=== PATIENT | female | born 1975 | race Caucasian/White ===

== ENCOUNTER 2020-04-08 06:47 | Outpatient (REF) | payer OTHER, SELFPAY ==
[2020-04-08 11:59] LABS: Alanine Aminotransferase 27 U/L (0-31); Aspartate Amino Transferase 19 U/L (5-31); Cholesterol 176 mg/dL; HDL Cholesterol 43 mg/dL; LDL Cholesterol Calculated 112 mg/dl; Triglycerides 106 mg/dL
[2020-04-08 12:06] LABS: Free T4 (Free Thyroxine) 1.24 ng/dL (0.71-1.85); Thyroid Stimulating Hormone 0.19 mIU/mL (0.32-4.0)
== END 2020-04-08 06:48 | disposition home or self-care (01) ==
LOC: HO.HMGCLDS 06:47
PROVIDERS: PCP Internal Medicine; Visit Provider Internal Medicine
DX: K21.9 Gastro-esophageal reflux disease without esophagitis (principal); E03.9 Hypothyroidism, unspecified; E78.5 Hyperlipidemia, unspecified
CPT/HCPCS: 80061; 84439; 84443; 84450; 84460

== ENCOUNTER 2020-10-06 12:53 | Outpatient (REF) | payer OTHER, SELFPAY ==
--- NOTE | ~2020-10-06 | MM_ITS ---
EXAMINATION: MM DIAGNOSTIC DIGITAL BREAST TOMOSYNTHESIS, LEFT CLINICAL INFORMATION: Short interval six-month follow-up probable benign focal nodular asymmetry mid upper outer left breast, possibly sequela from prior reduction mammoplasty. The lifetime risk of breast cancer based on the Tyrer-Cuzick Model is 11%. COMPARISON: Mammography: 03/19/2020, 03/11/2020 (BI-RADS 0), 08/19/2018, 08/13/2017 TECHNIQUE: Digital breast tomosynthesis is performed in both the craniocaudal and mediolateral oblique views along with computer-aided detection (CAD). Synthesized 2D images are generated from the tomosynthesis. FINDINGS: There are scattered areas of fibroglandular density (ACR BI-RADS breast composition Category b). There is minor scarring and benign coarse calcification anterior left breast corresponding to the prior reduction mammoplasty. The focal nodular asymmetry mid upper outer quadrant is stable from prior diagnostic exam and likely without significant change since 2018. Left breast will be reassessed again at time of annual bilateral mammography, due in 6 months. Results are provided to the patient at time of visit by the technologist. MM/MM tomosynthesis diagnostic LT IMPRESSION: No significant changes from prior studies. ASSESSMENT: BI-RADS 3: Probably Benign RECOMMENDATION: Diagnostic mammography at time of annual bilateral exam, due in 6 months. This patient's information was entered into a reminder system with a target due date for their next mammogram.
== END 2020-10-06 12:54 | disposition home or self-care (01) ==
LOC: HO.MAMMO 12:53
PROVIDERS: Visit Provider Internal Medicine
DX: N63.21 Unspecified lump in the left breast, upper outer quadrant (principal)
CPT/HCPCS: 77061; 77065

== ENCOUNTER 2020-10-13 06:42 | Outpatient (REF) | payer OTHER, SELFPAY ==
[2020-10-13 12:11] LABS: Free T4 (Free Thyroxine) 1.06 ng/dL (0.71-1.85); Thyroid Stimulating Hormone 0.45 uIU/mL (0.32-4.0)
[2020-10-13 12:13] LABS: Alanine Aminotransferase 30 U/L (0-31); Aspartate Amino Transferase 21 U/L (5-31); Cholesterol 187 mg/dL; HDL Cholesterol 41 mg/dL; LDL Cholesterol Calculated 120 mg/dl; Triglycerides 131 mg/dL
== END 2020-10-13 06:43 | disposition home or self-care (01) ==
LOC: HO.HMGCLDS 06:42
PROVIDERS: PCP Internal Medicine; Visit Provider Internal Medicine
DX: E78.5 Hyperlipidemia, unspecified (principal); E03.9 Hypothyroidism, unspecified; N92.6 Irregular menstruation, unspecified
CPT/HCPCS: 36415; 80061; 84439; 84443; 84450; 84460

== ENCOUNTER 2021-04-07 14:18 | Outpatient (REF) | payer OTHER, SELFPAY ==
--- NOTE | ~2021-04-07 | MM_ITS ---
EXAMINATION: MM DIAGNOSTIC DIGITAL BREAST TOMOSYNTHESIS, BILATERAL CLINICAL INFORMATION: Probable benign focal nodular asymmetry mid upper outer left breast, possibly sequela from prior reduction mammoplasty. Due for yearly. The lifetime risk of breast cancer based on the Tyrer-Cuzick Model is 16%. COMPARISON: Mammography: 10/06/2020, 03/19/2020, 03/11/2020 (BI-RADS 0), 08/19/2018, 08/13/2017 TECHNIQUE: Digital breast tomosynthesis is performed in both the craniocaudal and mediolateral oblique views along with computer-aided detection (CAD). Synthesized 2D images are generated from the tomosynthesis. FINDINGS: There are scattered areas of fibroglandular density (ACR BI-RADS breast composition Category b). Parenchymal pattern is similar to prior exams. There is minor scarring consistent with the prior bilateral reduction mammoplasty. There is no interval mass or architectural abnormality or developing density. No abnormal calcifications. Right breast again has dermal lesion overlying the posterior inferior medial breast. The focal nodular asymmetry mid upper outer left breast has fatty tissue composition centrally on the MLO view suggesting probable fat necrosis. No change from recent diagnostic studies. There are rounded fatty changes in this area of larger size since 2019 and 2018. Preliminary results are provided to the patient at time of visit by the technologist. MM/MM tomosynthesis diagnostic BI IMPRESSION: 1. Left: Focal nodular asymmetry upper outer left breast possibly fat necrosis, stable. 2. Right: No mammographic evidence of malignancy. ASSESSMENT: BI-RADS 3: Probably Benign RECOMMENDATION: Diagnostic left mammography in 6 months. This patient's information was entered into a reminder system with a target due date for their next mammogram.
== END 2021-04-07 14:19 | disposition home or self-care (01) ==
LOC: HO.MAMMO 14:18
PROVIDERS: Visit Provider Internal Medicine
DX: N64.89 Other specified disorders of breast (principal)
CPT/HCPCS: 77062; 77066

== ENCOUNTER 2021-04-22 06:33 | Outpatient (REF) | payer OTHER, SELFPAY ==
[2021-04-22 11:25] LABS: MANUAL DIFF FLAG NO
[2021-04-22 11:36] LABS: Basophils Absolute Auto 0.1 X10*3/uL (0.0-0.2); Basophils Percent Auto 1.3 % (0-2); Eosinophils Absolute Auto 0.1 X10*3/uL (0.0-0.4); Eosinophils Percent Auto 0.7 % (0-4); Hematocrit 38.9 % (37-47); Hemoglobin 12.6 g/dl (12.0-16.0); Imm Gran Abs Auto 0.01 X10*3/uL (0.00-0.03); Imm Gran Pct Auto 0.1 % (0.0-0.4); Lymphocytes Absolute Auto 2.6 X10*3/uL (1.2-4.9); Lymphocytes Percent Auto 36.1 % (20-40); Mean Corpuscular HGB Conc 32.4 g/dl (31.0-35.0); Mean Corpuscular Hemoglobin 31.6 pg (27.0-33.0); Mean Corpuscular Volume 97.5 fL (80-98); Mean Platelet Volume 10.3 fL (9.4-12.3); Monocytes Absolute Auto 0.7 X10*3/uL (0.1-1.2); Neutrophils Absolute Auto 3.7 X10*3/uL (2.0-8.3); Neutrophils Percent Auto 51.8 % (45-73); Platelet Count 346 X10*3/uL (160-400); Red Blood Count 3.99 X10*6/uL (4.20-5.50); Red Cell Distribution Width 14.1 % (11.0-16.0); White Blood Count 7.2 X10*3/uL (4.8-10.8)
[2021-04-22 11:43] LABS: Alanine Aminotransferase 21 U/L (0-31); Anion Gap 12 (12-20); Aspartate Amino Transferase 17 U/L (5-31); Blood Urea Nitrogen 16 mg/dL (9-16); Calcium 9.1 mg/dL (8.4-10.2); Carbon Dioxide 26 mmol/L (22-29); Chloride 108 mmol/L (96-108); Cholesterol 189 mg/dL; Estimated Glomerular Filt Rate 58; Glucose Fasting 99 mg/dL (60-99); HDL Cholesterol 39 mg/dL; LDL Cholesterol Calculated 128 mg/dl; Potassium 4.5 mmol/L (3.3-5.1); Sodium 141 mmol/L (135-145); Triglycerides 113 mg/dL
[2021-04-22 12:06] LABS: Free T4 (Free Thyroxine) 1.08 ng/dL (0.71-1.85); Thyroid Stimulating Hormone 0.97 uIU/mL (0.32-4.0)
== END 2021-04-22 06:34 | disposition home or self-care (01) ==
LOC: HO.HMGCLDS 06:33
PROVIDERS: PCP Internal Medicine; Visit Provider Internal Medicine
DX: E03.9 Hypothyroidism, unspecified (principal); E78.5 Hyperlipidemia, unspecified; N92.6 Irregular menstruation, unspecified; I10 Essential (primary) hypertension
CPT/HCPCS: 36415; 80048; 80061; 84439; 84443; 84450; 84460; 85025

== ENCOUNTER 2021-10-03 12:46 | Outpatient (REF) | payer OTHER, SELFPAY ==
--- NOTE | ~2021-10-03 | MM_ITS ---
EXAMINATION: MM DIAGNOSTIC DIGITAL BREAST TOMOSYNTHESIS, LEFT CLINICAL INFORMATION: Probable benign focal nodular asymmetry mid upper outer left breast, suspected sequela from reduction mammoplasty. TC score 11%. COMPARISON: Mammography: 04/07/2021, 10/06/2020, 03/19/2020, 03/11/2020 (BI-RADS 0). TECHNIQUE: Digital breast tomosynthesis is performed in both the craniocaudal and mediolateral oblique views along with computer-aided detection (CAD). Synthesized 2D images are generated from the tomosynthesis. FINDINGS: There are scattered areas of fibroglandular density (ACR BI-RADS breast composition Category b). There is scattered scarring consistent with the reduction mammoplasty. Focal nodular asymmetric density mid upper outer left breast is similar in size. There is internal low attenuation on MLO tomography. Finding will be reassessed again at time of annual bilateral mammography, due in 6 months. Remainder of left breast is similar to prior exams. There are some benign coarse and dystrophic calcifications anterior breasts both before. Results are provided to the patient at time of visit by the technologist. MM/MM tomosynthesis diagnostic LT IMPRESSION: No significant change from prior studies. ASSESSMENT: BI-RADS 3: Probably Benign RECOMMENDATION: Diagnostic mammography at time of annual exam, due in 6 months. This patient's information was entered into a reminder system with a target due date for their next mammogram.
== END 2021-10-03 12:47 | disposition home or self-care (01) ==
LOC: HO.MAMMO 12:46
PROVIDERS: PCP Internal Medicine; Visit Provider Internal Medicine
DX: R92.8 Other abnormal and inconclusive findings on diagnostic imaging of breast (principal)
CPT/HCPCS: 77061; 77065

== ENCOUNTER 2021-10-24 06:29 | Outpatient (REF) | payer OTHER, SELFPAY ==
[2021-10-24 12:36] LABS: Alanine Aminotransferase 33 U/L (0-31); Anion Gap 11 (12-20); Aspartate Amino Transferase 25 U/L (5-31); Blood Urea Nitrogen 11 mg/dL (9-16); Calcium 9.5 mg/dL (8.4-10.2); Carbon Dioxide 28 mmol/L (22-29); Chloride 105 mmol/L (96-108); Cholesterol 204 mg/dL; Estimated Glomerular Filt Rate > 60; Free T4 (Free Thyroxine) 1.11 ng/dL (0.71-1.85); Glucose Fasting 98 mg/dL (60-99); HDL Cholesterol 43 mg/dL; LDL Cholesterol Calculated 129 mg/dl; Potassium 4.3 mmol/L (3.3-5.1); Sodium 140 mmol/L (135-145); Thyroid Stimulating Hormone 1.04 uIU/mL (0.32-4.0); Triglycerides 164 mg/dL; Vitamin D 25-OH Total 47.9 ng/mL (>30)
== END 2021-10-24 06:30 | disposition home or self-care (01) ==
LOC: HO.HMGCLDS 06:29
PROVIDERS: Visit Provider Internal Medicine
DX: I10 Essential (primary) hypertension (principal); E03.9 Hypothyroidism, unspecified; E78.5 Hyperlipidemia, unspecified
CPT/HCPCS: 36415; 80048; 80061; 82306; 84439; 84443; 84450; 84460

== ENCOUNTER 2021-11-10 10:21 | Outpatient (REF) | payer OTHER, SELFPAY ==
--- NOTE | ~2021-11-10 | MM_ITS ---
EXAMINATION: BONE DENSITOMETRY CLINICAL INDICATION: Premature ovarian failure. COMPARISON: This is the patient's baseline examination. TECHNIQUE: Using a [employer] DXA System (software version: 13.1) manufactured by [employer], dual-energy x-ray absorptiometry was performed of the lumbar spine and left hip. The images are of good technical quality. Based on ISCD (International Society for Clinical Densitometry) standards of reporting, Z-scores instead of T-scores are reported in this premenopausal woman. Summary results are attached. FINDINGS: AP SPINE L1-L4: BMD 1.223 g/cm2, T-score 0.4, Z-score 0.4, Z-score within expected range for age. LEFT FEMUR, NECK: BMD 0.777 g/cm2, T-score -1.9, Z-score -1.3, Z-score within expected range for age. LEFT FEMUR, TOTAL: BMD 0.845 g/cm2, T-score -1.3, Z-score -1.0, Z-score within expected range for age. IDENTIFIED RISK FACTORS: None listed. HISTORY OF FRACTURE: None listed. MEDICATIONS: Calcium supplements or multivitamin, vitamin D, ERT/SERMS. MM/XR DEXA axial skeleton IMPRESSION: 1. DIAGNOSIS: Based on the lowest Z-score value of -1.3 in the femoral neck, the patient's bone density is within the expected range for age. 2. 10-YEAR FRACTURE RISK PREDICTION, FRAX: Major osteoporotic fracture (clinical spine, forearm, hip or shoulder) 3.7%. Hip fracture 0.5%. 3. Treatment Recommendations: NOF guidelines recommend consideration for treatment in postmenopausal women and men age 50 and older presenting with the following: -A hip or vertebral (clinical or morphometric) fracture. -T-score less than or equal to -2.5 at the femoral neck or spine after appropriate evaluation to exclude secondary causes. -Low bone mass at the hip or spine and a 10-year fracture probability by FRAX of greater than or equal to 3% for hip fracture or greater than or equal to 20% for major osteoporotic fracture based on the [place] adapted WHO algorithm. 4. Other Recommendations: All treatment decisions require clinical judgment and consideration of individual patient factors, including patient preferences, comorbidities, previous drug use, risk factors not captured in the FRAX model (e.g. frailty, falls, vitamin D deficiency, increased bone turnover, interval significant decline in bone density) and possible under or overestimation of fracture risk by FRAX. FUTURE SCAN RECOMMENDATION: People with diagnosed cases of osteoporosis or at high risk for fracture should have regular bone mineral density tests. For patients eligible for Medicare, routine testing is allowed once every 2 years. The testing frequency can be increased to one year for patients who have rapidly progressing disease, those who are receiving or discontinuing medical therapy to restore bone mass, or have additional risk factors.
== END 2021-11-10 10:22 | disposition home or self-care (01) ==
LOC: HO.MAMMO 10:21
PROVIDERS: PCP Internal Medicine; Visit Provider Nurse Practitioner Adult Health
DX: Z13.820 Encounter for screening for osteoporosis (principal); E28.39 Other primary ovarian failure
CPT/HCPCS: 77080

== ENCOUNTER 2022-03-29 14:01 | Emergency (ER) | payer OTHER, SELFPAY ==
--- NOTE | ~2022-03-29 | CT_ITS ---
EXAMINATION: CT head/brain wo IV con CLINICAL INFORMATION: Reason for Exam Accelerated hypertension memory loss COMPARISON: None. TECHNIQUE: Contiguous axial imaging was performed from the skull base to vertex without intravenous contrast. Sagittal and coronal reformatted images were obtained. This CT examination was performed using dose optimization techniques as appropriate, variously including the following: * Automated exposure control * Adjustment of mA and/or kV according to patient size (this includes techniques or standardized protocols for targeted exams where dose is matched to indication/reason for exam; i.e. extremities or head) Use of iterative reconstruction technique DLP: 647 mGy-cm FINDINGS: Postsurgical changes from suboccipital craniectomy and C1 posterior arch resection with encephalomalacia in the cerebellar vermis and medial cerebellar hemispheres. There is heterogeneous hyperdense material along the superior aspect of the fourth ventricle. No acute osseous or soft tissue abnormality. Right mastoid opacification. Visualized paranasal sinuses are clear. There is no definite evidence of acute intracranial hemorrhage or territorial infarction. No abnormal mass effect or midline shift is seen. Parra to white matter differentiation is well preserved. No extra-axial fluid collections are identified. Right frontal approach ventriculoperitoneal shunt catheter terminates in the region of the right frontal horn. Hypodensity along the catheter tract compatible with chronic gliosis. The lateral and third ventricles are slitlike. Mild generalized cerebral volume loss. Mild patchy supratentorial white matter hypodensity likely reflect sequela of chronic microvascular ischemia. CT/CT head/brain wo IV con IMPRESSION: 1. Postsurgical changes from suboccipital craniectomy with medial cerebellar encephalomalacia. There is some heterogeneous hyperdense material along the superior aspect of the fourth ventricle which appears atypical for hemorrhage and is suspected to be chronic/postsurgical in nature. Correlate with surgical history. This could be further evaluated with contrast-enhanced MRI if clinically indicated. 2. Right frontal approach ventriculoperitoneal shunt catheter is in place. The lateral and third ventricles appear slitlike. Correlate for overshunting. No extra-axial fluid collections. 3. Right mastoid opacification Impression #1 and [address] Morales on 03/30/2022 at 1:53 AM
[2022-03-29 14:25] VITALS: BP 199/102; PULSE 100; RESP 16; TEMP 37; O2SAT 97; BMI 29.2
--- NOTE | 2022-03-29 14:29 | ECG_ITS ---
Test Reason : hypertension Blood Pressure : / mmHG Vent. Rate : 100 BPM Atrial Rate : 100 BPM P-R Int : 136 ms QRS Dur : 066 ms QT Int : 350 ms P-R-T Axes : 044 035 022 degrees QTc Int : 451 ms Normal sinus rhythm Normal ECG No previous ECGs available Referred By: Generic ED Physician Electronically Signed By:MARKO PHAM
[2022-03-29 14:49] LABS: MANUAL DIFF FLAG NO
[2022-03-29 14:58] LABS: Basophils Absolute Auto 0.1 X10*3/uL (0.0-0.2); Basophils Percent Auto 1.1 % (0-2); Eosinophils Absolute Auto 0.1 X10*3/uL (0.0-0.4); Eosinophils Percent Auto 1.1 % (0-4); Hematocrit 40.8 % (37.0-47.0); Hemoglobin 13.1 g/dl (12.0-16.0); Imm Gran Abs Auto 0.01 X10*3/uL (0.00-0.03); Imm Gran Pct Auto 0.1 % (0.0-0.4); Lymphocytes Absolute Auto 1.7 X10*3/uL (1.2-4.9); Lymphocytes Percent Auto 23.5 % (20-40); Mean Corpuscular HGB Conc 32.1 g/dl (31.0-35.0); Mean Corpuscular Hemoglobin 30.9 pg (27.0-33.0); Mean Corpuscular Volume 96.2 fL (80.0-98.0); Mean Platelet Volume 9.2 fL (9.4-12.3); Monocytes Absolute Auto 0.7 X10*3/uL (0.1-1.2); Monocytes Percent Auto 9.9 % (2-11); Neutrophils Absolute Auto 4.6 x10*3/uL (2.0-8.3); Neutrophils Percent Auto 64.3 % (45-73); Platelet Count 329 X10*3/uL (160-400); Red Blood Count 4.24 X10*6/uL (4.20-5.50); Red Cell Distribution Width 13.8 % (11.0-16.0); White Blood Count 7.2 X10*3/uL (4.8-10.8)
[2022-03-29 15:05] LABS: COVID-19 Test Negative (Negative); IDNOW Serial# 9DB6401D
[2022-03-29 15:08] LABS: Anion Gap 15 (12-20); Blood Urea Nitrogen 16 mg/dL (9-16); Calcium 9.6 mg/dL (8.4-10.2); Carbon Dioxide 27 mmol/L (22-29); Chloride 103 mmol/L (96-108); Creatinine Clr Calc Pharmacy 52.7; Estimated Glomerular Filt Rate 56; Glucose Random 127 mg/dL (60-115); Potassium 4.5 mmol/L (3.3-5.1); Sodium 140 mmol/L (135-145)
[2022-03-30 00:02] VITALS: BP 185/104; PULSE 85; RESP 18; TEMP 37.1; O2SAT 98
--- NOTE | 2022-03-30 00:50 | ED.GENADULT ---
HPI - General Adult General Chief complaint: General Medical Stated complaint: numbness in L arm, stroke like symptoms Time Seen by Provider: 03/30/22 00:50 Source: patient Mode of arrival: ambulatory Limitations: no limitations History of Present Illness HPI narrative: Patient legally blind and hard of hearing with history of brain tumor status post shunt placement notices bilateral hand numbness since morning had difficulty in counting no other weakness also noticed slight headache noticed to be have high blood pressure on arrival 199/102 patient never had high blood pressure in the past no chest pain or palpitation Related Data Home Medications Medication Instructions Recorded Confirmed levonorgestrel-ethinyl estradiol 1 tab PO DAILY 04/15/20 04/28/21 0.1 mg-20 mcg tablet Lactobacillus rhamnosus GG 20 cell PO 10/31/21 billion cell capsule (Probiotic Digestive Care) calcium carbonate 600 mg calcium 600 mg PO DAILY 10/31/21 (1,500 mg) tablet (Calcium) cholecalciferol (vitamin D3) 50 50 mcg PO DAILY 10/31/21 mcg (2,000 unit) capsule omega 6-jyo-jps-fish oil 1,000 mg 1 cap PO DAILY 10/31/21 (120 mg-180 mg) capsule (Fish Oil) Previous Rx's Medication Instructions Recorded omeprazole 20 mg capsule,delayed 20 mg PO DAILY #30 caps 10/24/21 release lovastatin 40 mg tablet 40 mg PO BEDTIME #90 tabs 10/31/21 levothyroxine 75 mcg tablet 75 mcg PO QAM 90 days #90 tabs 01/16/22 amlodipine 5 mg tablet (Norvasc) 5 mg PO DAILY #30 tabs 03/30/22 Allergies Allergy/AdvReac Type Severity Reaction Status Date / Time No Known Allergies Allergy Verified 10/31/21 10:53 Review of Systems Review of Systems: Yes all other systems are reviewed and are negative PMFSH Past Medical History Medical History Acquired hypothyroidism Basal cell carcinoma of right cheek Hyperlipidemia Irregular menses Medulloblastoma Panic attacks Surgical History History of brain tumor Status post breast reduction Family History Family History Father HTN (hypertension) Hyperlipidemia Mother HTN (hypertension) History of thyroid disorder Maternal Grandmother CHF (congestive heart failure) History of thyroid disorder Paternal Grandmother Breast cancer Melanoma Paternal Grandfather Cancer Diabetes mellitus Brother No problems noted. Sister No problems noted. Social History Social History Housing: House Alcohol intake: never Patient Tobacco Use Status: Never used Tobacco e-Cigarette/Vaping Use: Never Used Advance Directives: No Advance Directives Information Provided: Yes Current occupational status: disabled Cognitive needs: No Hearing needs: No Vision needs: Yes (legally blind) Physical Exam ED Vital Signs: Vital Signs - 24 hr 03/29/22 14:25 03/30/22 00:02 03/30/22 01:29 Temperature 98.6 F 98.8 F Pulse Rate 100 85 75 Respiratory Rate 16 18 Blood Pressure 199/102 H 185/104 H 178/96 H Pulse Oximetry 97 98 Oxygen Delivery Method Room Air Room Air BMI result Body Mass Index 29.2 Appearance: Alert. Oriented X3. No acute distress. Slight hard of hearing Eyes: Legally blind ENT: Pharynx normal. Oral Mucosa moist Neck: Normal inspection. Neck supple. CVS: Normal heart rate and rhythm. Pulses normal. Respiratory: No respiratory distress. Equal air entry bilateral, no wheezing/rales/rhonchi Abdomen: Soft and nontender. Bowel sounds are present, no mass palpable, no CVA tenderness Skin: Skin warm and dry. Normal skin color. Normal skin turgor. Extremities: No lower extremity edema. No calf tenderness Neuro: Oriented X 3. No motor deficit. No sensory deficit.No cerebellar signs , cranial nerves II-XII intact Medical Decision Making MDM Narrative Medical decision making narrative: Patient noticed to have accelerated hypertension will get CT scan of the head. Will give amlodipine 10 mg for blood pressure Lab Data Lab results reviewed: Yes I reviewed the patient's lab results. Result diagrams: 03/29/22 14:43 03/29/22 14:43 Labs: Lab Results 03/29/22 03/29/22 03/29/22 Range/Units 14:43 14:43 14:43 WBC 7.2 (4.8-10.8) X10*3/uL RBC 4.24 (4.20-5.50) X10*6/uL Hgb 13.1 (12.0-16.0) g/dl Hct 40.8 (37.0-47.0) % MCV 96.2 (80.0-98.0) fL MCH 30.9 (27.0-33.0) pg MCHC 32.1 (31.0-35.0) g/dl RDW 13.8 (11.0-16.0) % Plt Count 329 (160-400) X10*3/uL MPV 9.2 L (9.4-12.3) fL Immature Gran % (Auto) 0.1 (0.0-0.4) % Neut % (Auto) 64.3 (45-73) % Lymph % (Auto) 23.5 (20-40) % [place] % (Auto) 9.9 (2-11) % Eos % (Auto) 1.1 (0-4) % Baso % (Auto) 1.1 (0-2) % Lymph # (Auto) 1.7 (1.2-4.9) X10*3/uL [place] # (Auto) 0.7 (0.1-1.2) X10*3/uL Eos # (Auto) 0.1 (0.0-0.4) X10*3/uL Baso # (Auto) 0.1 (0.0-0.2) X10*3/uL Abs Immat Gran (auto) 0.01 (0.00-0.03) X10*3/uL Absolute Neuts (auto) 4.6 (2.0-8.3) x10*3/uL Absolute Nucleated RBC 0.000 (0.0-0.012) X10*3/uL Nucleated RBC % (auto) 0.0 (0.0-0.2) /100WBC Sodium 140 (135-145) mmol/L Potassium 4.5 (3.3-5.1) mmol/L Chloride 103 (96-108) mmol/L Carbon Dioxide 27 (22-29) mmol/L Anion Gap 15 (12-20) BUN 16 (9-16) mg/dL Creatinine 1.05 (0.5-1.4) mg/dL Estim Creat Clear Calc 52.7 Estimated GFR 56 Random Glucose 127 H (60-115) mg/dL Calcium 9.6 (8.4-10.2) mg/dL COVID-19 ([facility]) Negative (Negative) COVID-19 Clin Com See Note ECG Data Attestation: I personally reviewed and interpreted this ECG as follows: Interpretation: Normal sinus rhythm heart rate 100 beats per minute normal interval normal axis no acute ischemic changes Discharge Plan Discharge Clinical Impression: Hypertension, Hand paresthesia Patient Disposition: Home, Self-Care Instructions: Paresthesia (ED), Hypertension (ED) Additional Instructions: Likely you have hypertension Start taking blood pressure medication At this time does no finding of stroke Follow with PCP Prescriptions: New amlodipine [Norvasc] 5 mg tablet 5 mg PO DAILY Qty: 30 0RF No Action omeprazole 20 mg capsule,delayed release(DR/EC) 20 mg PO DAILY Qty: 30 4RF levothyroxine 75 mcg tablet 75 mcg PO QAM 90 Days Qty: 90 1RF levonorgestrel-ethinyl estrad 0.1-20 mg-mcg tablet 1 tab PO DAILY omega 9-ycx-aov-fish oil [Fish Oil] 1,000 mg (120 mg-180 mg) capsule 1 cap PO DAILY cholecalciferol (vitamin D3) 50 mcg (2,000 unit) capsule 50 mcg PO DAILY calcium carbonate [Calcium 600] 600 mg calcium (1,500 mg) tablet 600 mg PO DAILY Probiotic Digestive Care 20 billion cell capsule PO lovastatin 40 mg tablet 40 mg PO BEDTIME Qty: 90 3RF
[2022-03-30 01:29] VITALS: BP 178/96; PULSE 75
[2022-03-30] MEDS: amLODIPine Besylate 5 MG TABLET 10 MG PO (01:29)
== END 2022-03-30 02:59 | disposition home or self-care (01) ==
PROVIDERS: Emergency Provider Internal Medicine; PCP Internal Medicine
DX: I10 Essential (primary) hypertension (principal); R20.2 Paresthesia of skin; Z20.822 Contact with and (suspected) exposure to COVID-19; E78.5 Hyperlipidemia, unspecified; Z79.02 Long term (current) use of antithrombotics/antiplatelets
CPT/HCPCS: 70450; 80048; 85025; 87635; 93005; 99284

== ENCOUNTER 2022-04-05 12:49 | Outpatient (REF) | payer OTHER, SELFPAY ==
--- NOTE | ~2022-04-05 | MM_ITS ---
EXAMINATION: MM DIAGNOSTIC DIGITAL BREAST TOMOSYNTHESIS, BILATERAL CLINICAL INFORMATION: Due for yearly. Also follow-up probable benign focal nodular asymmetric density mid upper outer left breast, suspected sequela from remote reduction mammoplasty. The lifetime risk of breast cancer based on the Tyrer-Cuzick Model is 19%. COMPARISON: Mammography: 10/03/2021, 04/07/2021, 10/06/2020, 03/19/2020, 03/11/2020 (BI-RADS 0), 08/19/2018, 08/13/2017 TECHNIQUE: Digital breast tomosynthesis is performed in both the craniocaudal and mediolateral oblique views along with computer-aided detection (CAD). Synthesized 2D images are generated from the tomosynthesis. FINDINGS: There are scattered areas of fibroglandular density (ACR BI-RADS breast composition Category b). Parenchymal pattern is similar to prior studies. There is mild scarring consistent with the prior reduction mammoplasty with scattered benign round and rim calcifications. There are 2 dermal lesions again seen overlying the posterior medial right breast. There is no significant mass or architectural abnormality or developing density. The nodular asymmetry mid upper outer left breast for follow-up is slightly decreased since 2020 and is considered to be benign. There are no significant changes. Results are provided to the patient at time of visit by the technologist. MM/MM tomosynthesis diagnostic BI IMPRESSION: -No mammographic evidence of malignancy. -Nodular asymmetry mid upper outer left breast is slightly decreased since 2020 and consented to be benign. ASSESSMENT: BI-RADS 2: Benign RECOMMENDATION: Routine annual mammography screening. This patient's information was entered into a reminder system with a target due date for their next mammogram.
== END 2022-04-05 12:50 | disposition home or self-care (01) ==
LOC: HO.MAMMO 12:49
PROVIDERS: Visit Provider Internal Medicine
DX: R92.2 Inconclusive mammogram (principal)
CPT/HCPCS: 77062; 77066

== ENCOUNTER 2022-04-24 06:13 | Outpatient (REF) | payer OTHER, SELFPAY ==
[2022-04-24 12:06] LABS: Alanine Aminotransferase 24 U/L (0-31); Aspartate Amino Transferase 21 U/L (5-31); Cholesterol 185 mg/dL; HDL Cholesterol 39 mg/dL; LDL Cholesterol Calculated 119 mg/dl; Triglycerides 137 mg/dL
[2022-04-24 12:11] LABS: Free T4 (Free Thyroxine) 1.11 ng/dL (0.71-1.85); Thyroid Stimulating Hormone 2.12 uIU/mL (0.32-4.0)
== END 2022-04-24 06:14 | disposition home or self-care (01) ==
LOC: HO.HMGCLDS 06:13
PROVIDERS: PCP Internal Medicine; Visit Provider Internal Medicine
DX: E03.9 Hypothyroidism, unspecified (principal); E78.5 Hyperlipidemia, unspecified
CPT/HCPCS: 36415; 80061; 84439; 84443; 84450; 84460

== ENCOUNTER → 2022-05-12 13:04 | Outpatient (REF) | payer OTHER, SELFPAY ==
--- NOTE | 2022-05-12 13:09 | CA_ITS ---
Transthoracic Echocardiogram Patient (Last, First, Middle): Odette Reilly M Gender: Female Date of : 1975 Age: 46 Procedure Date: 05/12/2022 Procedure Type: Transthoracic Echocardiogram Location: OP Height: 147.32 cm Weight: 65.77 kg BSA: 1.59 m2 Heart Rate: 101 bpm BP: 138 / 72 mmHg Millinery Copyist: SB Referring MD: Iliana Roa MD Symptoms: R01.1 - Cardiac murmur, unspecified Study Quality: Adequate ECG Rhythm: Tachycardia Conclusions: - Normal left ventricular size, thickness, systolic function, and wall motion. The visually estimated ejection fraction is between 65-70%. Diastolic function is normal for age. - Normal right ventricular cavity size and systolic function. - The left atrium is normal in size. The right atrium is normal in size. - There is mild aortic valve stenosis. The peak aortic velocity is 2.05 m/s. The aortic valve area is 1.29 cm2. Findings Left Ventricle Normal left ventricular size, thickness, systolic function, and wall motion. The visually estimated ejection fraction is between 65-70%. Diastolic function is normal for age. Right Ventricle Normal right ventricular cavity size and systolic function. Atria The left atrium is normal in size. The right atrium is normal in size. Aortic Valve There is a normal trileaflet aortic valve. There is mild calcification of the aortic valve. There is mild aortic valve stenosis. The peak aortic velocity is 2.05 m/s. The aortic valve area is 1.29 cm2. There is no aortic valve regurgitation. Mitral Valve The mitral valve appears normal. There is no mitral valve regurgitation. There is no mitral valve stenosis. Pulmonic Valve The pulmonic valve is likely normal. Tricuspid Valve Normal tricuspid valve structure and function. There is trace tricuspid valve regurgitation. Normal right atrial pressure. There is no evidence of pulmonary hypertension. Great Vessels All visible segments of the aorta are normal in size. The visualized portions of the pulmonary artery and branches are normal. Venous The inferior vena cava is normal in size and collapses greater than 50% with inspiration. Pericardium/Pleural There is no evidence of pericardial effusion. Prior Study Comparison No prior study available for comparison. Measurements 2D Linear Measurements IVSd: 0.76 0.6-0.9/0.6-1.0 cm LVIDd: 4.08 3.9-5.3/4.2-5.9 cm LVIDd Index: 2.57 2.4-3.2/2.2-3.1 cm/m2 LVIDs: 2.75 2.0-3.6 cm LVPWd: 0.74 0.7-1.1 cm LA Diam: 3.10 2.7-3.8/3.0-4.0 cm LAIDs Index: 1.95 1.5-2.3 cm/m2 LV Mass: 110.54 67-162/88-224 g LV Mass Index: 69.52 43-95/49-115 g/m2 LVOT Diam: 1.80 3.0+(-)1.3 cm 2D Systolic Function EF 4C: 61.40 >55% EF 2C: 66.60 >55% EF BiP: 64.50 >55% Mitral Valve MV Pk E: 1.16 MV PK A: 1.04 MV Decel Time: 100.00 E/A: 1.10 E'Lateral: 9.46 E'Medial: 8.59 E/E' Med: 13.50 E/E' Lat: 12.30 PHT: 29.00 MVA PHT: 7.59 Decel [place]: 11.61 Aortic Valve AoV Pk Jose Armando: 2.05 AoV Mn Jose Armando: 1.37 AoV VTI: 0.40 AoV Pk Grad: 17.00 Aov Mn Grad: 9.00 MICHA Cont.VTI: 1.29 LVOT LVOT Pk Jose Armando: 1.02 LVOT Mn Jose Armando: 0.78 LVOT VTI: 0.20 LVOT Pk Grad: 4.00 LVOT Mn Grad: 3.00 LVOT Diam: 1.80 LVOT Area: 2.54 Diastolic Function MV Pk E: 1.16 MV Pk A: 1.04 E/A: 1.10 E'Medial: 8.59 E/E' Med: 13.50 E' Laterial: 9.46 E/E' Lat: 12.30 Right Ventricle TAPSE (mm): 22.60 TVS' Jose Armando: 14.40 Tricuspid Valve TR Pk Jose Armando: 2.26 TR Pk Grad: 20.00 RA Press: 3.00 RVSP: 23.00 Great Vessels Aorta Sinus of Valsalva: 2.70 2.0-3.[address] [place]: 2.59 1.7-3.4 cm Ao Asc: 3.20 2.1-3.4 cm Pulmonary Valve PV Pk Jose Armando: 0.87 Peak PV Grad: 3.00 Updated in Other Vendor System with Status of Final Darrell Boswell MD electronically signed on 05/14/2022 9:34:47 PM with status of Final
== END ==
LOC: HO.CARD 13:04
PROVIDERS: PCP Internal Medicine; Visit Provider Internal Medicine
DX: R01.1 Cardiac murmur, unspecified (principal)
CPT/HCPCS: 93306

== ENCOUNTER 2022-07-29 07:41 | Outpatient (REF) | payer OTHER, SELFPAY ==
[2022-07-29 11:36] LABS: Alanine Aminotransferase 25 U/L (0-31); Anion Gap 12 (12-20); Aspartate Amino Transferase 20 U/L (5-31); Blood Urea Nitrogen 15 mg/dL (9-16); Calcium 9.5 mg/dL (8.4-10.2); Carbon Dioxide 28 mmol/L (22-29); Chloride 105 mmol/L (96-108); Cholesterol 187 mg/dL; Estimated Glomerular Filt Rate 55; Glucose Fasting 95 mg/dL (60-99); HDL Cholesterol 40 mg/dL; LDL Cholesterol Calculated 123 mg/dl; Potassium 4.9 mmol/L (3.3-5.1); Sodium 140 mmol/L (135-145); Triglycerides 124 mg/dL
[2022-07-29 11:51] LABS: Free T4 (Free Thyroxine) 0.96 ng/dL (0.71-1.85); Thyroid Stimulating Hormone 2.03 uIU/mL (0.32-4.0)
== END 2022-07-29 07:42 | disposition home or self-care (01) ==
LOC: HO.HMGCLDS 07:41
PROVIDERS: PCP Internal Medicine; Visit Provider Internal Medicine
DX: E03.9 Hypothyroidism, unspecified (principal); E78.5 Hyperlipidemia, unspecified; I10 Essential (primary) hypertension
CPT/HCPCS: 36415; 80048; 80061; 84439; 84443; 84450; 84460

== ENCOUNTER 2022-07-31 10:42 | Outpatient (AMB) | payer OTHER, SELFPAY ==
--- NOTE | 2022-07-31 11:18 | MHC.PC.OV ---
Vital Signs 07/31/22 11:20 Height 4 ft 10 in Weight 145 lb BMI 30.3 BP 136/70 Blood Pressure Location Lt brachial Position Sitting Pulse 90 Pulse Source Pulse Oximeter Pulse Oximetry (%) 100 Oxygen Delivery Method Room Air Intake Visit Reasons: 3 Month follow up Intake Note: Pt is here today for her 3 months f/u Allergies No Known Allergies Allergy (Verified 06/05/23 09:53) Medication List - Last Reconciled 07/31/22 by Iliana Roa MD amlodipine (Norvasc) 5 mg PO DAILY calcium carbonate (Calcium) 600 mg PO DAILY cholecalciferol (vitamin D3) 50 mcg PO DAILY Lactobacillus rhamnosus GG (Probiotic Digestive Care) cells PO levonorgestrel-ethinyl estrad 0.1-20 mg-mcg 1 tab PO DAILY levothyroxine 75 mcg PO QAM 90 days lovastatin 40 mg PO BEDTIME omega 5-cuv-sqr-fish oil 1,000 mg (120 mg-180 mg) (Fish Oil) 1 cap PO DAILY omeprazole 20 mg PO DAILY Tobacco use date assessed: 07/31/22 HPI 3 Month follow up HPI Details 47-year-old lady , legally blind, with hypertension history of renal artery stenosis, hypothyroidism and dyslipidemia, here today for follow-up. She has been compliant with taking all her medications and following recommended diet. Patient however has been noticing some difficulty with word finding whenever she is speaking, and has been noticing that she has been having difficulty remembering things, which has been occurring now for the last several months and seems to be getting worse . [facility] Medical History (Updated 12/25/22 @ 13:00 by Iliana Roa MD) Renal artery stenosis Hypersomnolence Snoring GERD (gastroesophageal reflux disease) Word finding problem Memory difficulties Heart murmur, systolic Essential hypertension Positive colorectal cancer screening using Cologuard test Panic attacks Basal cell carcinoma of right cheek Hyperlipidemia Irregular menses Acquired hypothyroidism Medulloblastoma Surgical History Hx of colonoscopy History of brain tumor Status post breast reduction Family History Father HTN (hypertension) Hyperlipidemia Mother HTN (hypertension) History of thyroid disorder Maternal Grandmother CHF (congestive heart failure) History of thyroid disorder Paternal Grandmother Breast cancer Melanoma Paternal Grandfather Cancer Diabetes mellitus Brother No problems noted. Sister No problems noted. Social History Housing: House Alcohol intake: never Patient Tobacco Use Status: Never used Tobacco e-Cigarette/Vaping Use: Never Used Current occupational status: disabled Cognitive needs: No Hearing needs: No Vision needs: Yes (legally blind) Questionnaire PHQ-9 Over the last 2 weeks, how often have you been bothered by any of the following problems? Depression Screening Interpretation: Negative Source: Developed by Drs. Denzel Lemons, Caryn Hardy, Donn Arango and colleagues, with an educational alanna from [employer]. Thrive Questionnaire Date Thrive assessed: 10/31/21 EMILY-7 AMB Questionnaire EMILY-7 Date EMILY - 7 assessed: 10/31/21 Source: Developed by Drs. Denzel Lemons, Caryn Hardy, Donn Arango and colleagues, with an educational alanna from [employer]. Review of Systems Const Denies body aches, Denies fatigue, Denies fever(s) and Denies weakness Eyes Details: blindness Reports no additional complaints ENT Denies dizziness, Denies nasal congestion, Denies nasal discharge, Denies disequilibrium, Denies post nasal drip and Denies sore throat Card Denies chest pain, Denies lightheadedness, Denies palpitations and Denies dyspnea Resp Denies chest congestion, Denies cough, Denies dyspnea and Denies wheezing GI Denies abdominal pain, Denies change in bowel habits and Reports heartburn ( intermittent, takes omeprazole every other day) Denies urinary frequency, Denies dysuria and Denies urinary urgency Musc Denies abnormal gait, Denies back pain, Denies myalgias, Denies arthralgias, Denies joint swelling and Denies stiffness Skin/Breast Denies lesions and Denies rash Neuro Reports as per HPI, Denies abnormal gait, Denies confusion, Denies dizziness, Denies seizure-like activity, Denies disequilibrium and Denies weakness Psych Reports no additional complaints and Denies confusion Endo Denies fatigue, Denies polydipsia, Denies polyuria and Denies palpitations Bimal/Lymph Reports no additional complaints Aller/Immun Denies seasonal rhinorrhea and Denies wheezing Physical exam (Primary Care) Vital Signs: Last Vital Signs Pulse 90 07/31/22 11:20 BP 136/70 07/31/22 11:20 Pulse Ox 100 07/31/22 11:20 Oxygen Delivery Method Room Air 07/31/22 11:20 BMI result Body Mass Index 30.3 Tobacco/Smoking Status: Tobacco use Status Tobacco use date assessed 07/31/22 07/31/22 11:26 Patient Tobacco Use Status Never used Tobacco 07/31/22 11:22 e-Cigarette/Vaping Use Never Used 07/31/22 11:22 Depression Screening Interpretation: Negative Thrive Assessment: Date of Thrive Assessment Date Thrive assessed 10/31/21 07/31/22 11:22 Const Other: Alert oriented x3, no acute distress noted ambulatory with walking stick, 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 on this visit General: No confusion Orientation/consciousness: No confusion HENMT Head: Yes normocephalic General nose exam: Normal external nose present and No nasal discharge present Mouth: Normal oral and palatal mucosa present and moist mucous membranes Neck Other: Supple, no lymphadenopathy, thyroid gland nonpalpable and nontender to palpation Resp Effort & Inspection: normal respiratory effort and able to speak in complete sentences Auscultation: clear to auscultation bilaterally Cardio Other: S1-S2 present regular rate and rhythm , systolic murmur at left sternal border GI Palpation (GI): Soft to palpation, nontender, no guarding and no masses General: Yes no CVA tenderness Back/Spine/Pelvis Back: no CVA tenderness and No back tenderness Neuro General: No confusion Gait exam (Neuro): Normal gait present and Assisted gait required Gait assisted method: walking stick Extrem General: Yes full ROM, Yes no joint enlargement, Yes no pedal edema and Yes no calf tenderness Results Reviewed Results Reviewed: ENTERED: 07/29/[address]: ORDERED: Met Prof Fast, AST, ALT, Lipid Panel, Free T4, TSH Test Result Flag Reference Site Sodium 140 135-145 mmol/L Potassium 4.9 3.3-5.1 mmol/L CL 105 96-108 mmol/L CO2 28 22-29 mmol/L Gap 12 12-20 BUN 15 9-16 mg/dL Creat 1.07 0.5-1.4 mg/dL EGFR 55 NOTE: For -[place] individuals, multiply the result by 1.210. Chronic Kidney Disease: Estimated GFR < 60 mL/min/1.73m2 Severe Kidney Disease: Estimated GFR < 15 mL/min/1.73m2 FBS 95 60-99 mg/dL CA 9.5 8.4-10.2 mg/dL AST (GOT) 20 5-31 U/L ALT (GPT) 25 0-31 U/L Triglyceride 124 mg/dL Desirable Triglyceride: less than 150 mg/dL Borderline High Triglyceride 150-199 mg/dL High Triglyceride: 200-499 mg/dL Very High Triglyceride: greater than or equal to 5OO mg/dL Chol 187 mg/dL Desirable Cholesterol: less than 200 mg/dL Borderline High Cholesterol: 200-239 mg/dL High Cholesterol: greater than 239 mg/dL LDL Calculated 123 mg/dl Desirable LDL: less than 100 mg/dL Near Optimal/Above Optimal LDL: 110-129 mg/dL Borderline High LDL: 130-159 mg/dL High LDL: 160-189 mg/dL Very High LDL: greater than or equal to 190 mg/dL HDL 40 mg/dL Desirable HDL: greater than 40 mg/dL Note: This HDL assay may give artificially low results in patients with liver disease. Free T4 0.96 0.71-1.85 ng/dL TSH 3rd Gen. 2.03 0.32-4.0 uIU/mL Assessment and Plan Assessment & Plan (1) Essential hypertension: Code(s): I10 - Essential (primary) hypertension Plan: Blood pressure not at goal of less than 130/80. Will start on lisinopril at 2.5 mg per tablet to take once a day in a.m.. Reinforced importance of following a low sodium diet, getting regular exercise, and lowering stress levels. (2) Word finding problem: Comment: ? hearing impairment Code(s): R47.89 - Other speech disturbances Plan: Referred to neurology for further evaluation (3) Memory difficulties: Comment: she did well on MMSE - she ahd difficulty during the evaluation due to her hearing difficulty Code(s): R41.3 - Other amnesia Plan: Referral to Neurology ordered (4) Acquired hypothyroidism: Code(s): E03.9 - Hypothyroidism, unspecified Plan: Recent thyroid levels are within normal limits, continued on current dose of levothyroxine 75 mcg daily in a.m. (5) Hyperlipidemia: Code(s): E78.5 - Hyperlipidemia, unspecified Plan: Fasting lipids are within normal limits, continued on lovastatin 40 mg at bedtime Orders: Referrals Neurology Referral R41.3 - Other amnesia, R47.89 - Other speech disturbances Medications: New lisinopril 2.5 mg PO DAILY 30 tabs 0RF I10 - Essential (primary) hypertension Coding Level of Care Code Est Pt Level 4 (94718) Diagnoses Essential hypertension I10 Word finding problem R47.89 Memory difficulties R41.3 Acquired hypothyroidism E03.9 Hyperlipidemia E78.5
[2022-07-31 11:20] VITALS: BP 136/70; PULSE 90; O2SAT 100; BMI 30.3
== END 2022-07-31 11:53 | disposition home or self-care (01) ==
LOC: HO.HMGC 10:42
PROVIDERS: PCP Internal Medicine; Visit Provider Internal Medicine
DX: I10 Essential (primary) hypertension (principal); R47.89 Other speech disturbances; R41.3 Other amnesia; E03.9 Hypothyroidism, unspecified; E78.5 Hyperlipidemia, unspecified
CPT/HCPCS: 99214

== ENCOUNTER → 2022-07-31 12:58 | Outpatient (BNVA) | payer OTHER, SELFPAY | PROVIDERS: PCP Internal Medicine; Visit Provider Internal Medicine | DX: R19.5 Other fecal abnormalities (principal) | CPT/HCPCS: 99202 ==

== ENCOUNTER 2022-09-05 10:32 | Day surgery (SDC) | payer OTHER, SELFPAY ==
--- NOTE | 2022-09-04 13:51 | HO.ANESPROP2 ---
Documented by User: Odette Steve NP 09/04/22 13:52 HPI - Anesthesia Eval Consult details Narrative: 47yo F for Colonoscopy PMFSH Active Problems Active Problems: All Active Problems (Updated 07/31/22 @ 11:48 by Iliana Roa MD) Word finding problem (Acute) Memory difficulties (Acute) Heart murmur, systolic (Acute) Essential hypertension (Acute) Positive colorectal cancer screening using Cologuard test (Acute) Hyperlipidemia (Acute) Irregular menses (Acute) Acquired hypothyroidism (Acute) Medulloblastoma (Acute) Past Medical History Medical History Acquired hypothyroidism Basal cell carcinoma of right cheek Essential hypertension GERD (gastroesophageal reflux disease) Heart murmur, systolic Hyperlipidemia Irregular menses Medulloblastoma Memory difficulties Panic attacks Positive colorectal cancer screening using Cologuard test Word finding problem Family History Family History Father HTN (hypertension) Hyperlipidemia Mother HTN (hypertension) History of thyroid disorder Maternal Grandmother CHF (congestive heart failure) History of thyroid disorder Paternal Grandmother Breast cancer Melanoma Paternal Grandfather Cancer Diabetes mellitus Brother No problems noted. Sister No problems noted. Surgical History Surgical History History of brain tumor Status post breast reduction Social History Social History Housing: House Alcohol intake: never Patient Tobacco Use Status: Never used Tobacco e-Cigarette/Vaping Use: Never Used Use of substances other than those prescribed or required for medical reasons: No Are you DNR?: No Advance Directives: No Advance Directives Information Provided: Yes Current occupational status: disabled Cognitive needs: No Hearing needs: No Vision needs: Yes (legally blind) Meds Allergies Allergy/AdvReac Type Severity Reaction Status Date / Time No Known Allergies Allergy Verified 09/05/22 11:08 Home Medications Medication Instructions Recorded Confirmed Last Taken Type levonorgestrel-ethinyl estradiol 1 tab PO DAILY 04/15/20 08/31/22 Unknown History 0.1 mg-20 mcg tablet Lactobacillus rhamnosus GG 20 cell PO 10/31/21 Unknown History billion cell capsule (Probiotic Digestive Care) calcium carbonate 600 mg calcium 600 mg PO DAILY 10/31/21 08/31/22 Unknown History (1,500 mg) tablet (Calcium) cholecalciferol (vitamin D3) 50 50 mcg PO DAILY 10/31/21 08/31/22 Unknown History mcg (2,000 unit) capsule Exam Exam Date and Time: September 04, 2022 1351 Pertinent Lab Results Pertinent Lab Results: Laboratory Tests 03/29/22 07/29/22 14:43 07:50 WBC 7.2 Hgb 13.1 Hct 40.8 Plt Count 329 Sodium 140 Potassium 4.9 Chloride 105 Carbon Dioxide 28 BUN 15 Creatinine 1.07 Assessment and Plan Assessment Anesthesia Assessment: Chart Reviewed Documented by User: Daisha Steve MD 09/05/22 12:14 PMFSH Past Medical History Medical History Acquired hypothyroidism Basal cell carcinoma of right cheek Essential hypertension GERD (gastroesophageal reflux disease) Heart murmur, systolic Hyperlipidemia Irregular menses Medulloblastoma Memory difficulties Panic attacks Positive colorectal cancer screening using Cologuard test Word finding problem Family History Family History Father HTN (hypertension) Hyperlipidemia Mother HTN (hypertension) History of thyroid disorder Maternal Grandmother CHF (congestive heart failure) History of thyroid disorder Paternal Grandmother Breast cancer Melanoma Paternal Grandfather Cancer Diabetes mellitus Brother No problems noted. Sister No problems noted. Surgical History Surgical History History of brain tumor Status post breast reduction History of Problems with Anesthesia: No Social History Social History Housing: House Alcohol intake: never Patient Tobacco Use Status: Never used Tobacco e-Cigarette/Vaping Use: Never Used Use of substances other than those prescribed or required for medical reasons: No Are you DNR?: No Advance Directives: No Advance Directives Information Provided: Yes Current occupational status: disabled Cognitive needs: No Hearing needs: No Vision needs: Yes (legally blind) Meds Allergies Allergy/AdvReac Type Severity Reaction Status Date / Time No Known Allergies Allergy Verified 09/05/22 11:08 Home Medications Medication Instructions Recorded Confirmed Last Taken Type levonorgestrel-ethinyl estradiol 1 tab PO DAILY 04/15/20 08/31/22 Unknown History 0.1 mg-20 mcg tablet Lactobacillus rhamnosus GG 20 cell PO 10/31/21 Unknown History billion cell capsule (Probiotic Digestive Care) calcium carbonate 600 mg calcium 600 mg PO DAILY 10/31/21 08/31/22 Unknown History (1,500 mg) tablet (Calcium) cholecalciferol (vitamin D3) 50 50 mcg PO DAILY 10/31/21 08/31/22 Unknown History mcg (2,000 unit) capsule Exam Airway Mallampati Class: II TM Dist: >3cm Neck ROM: Full Loose/Missing/Broken Teeth: No Heart: RRR Lungs: CTA Assessment and Plan Assessment Anesthesia Assessment: Anesthesia Plan Discussed Final Anesthetic Review History of Problems with Anesthesia: No NPO: Yes ASA Class: III Final Preanesthetic Review: Meds/Allgs Chart Reviewed, Consent Obtained/Reviewed and Anes Risks/Benef Reviewed Patient Risk: Low Procedure Risk: Low Anesthetic Plan Anesthetic Plan: MAC: Disposition: Standard PACU
--- NOTE | 2022-09-05 10:52 | MHC.SHP ---
Pre-Procedural Eval Section A Date of Service: 09/05/22 Section B Chief Complaint: Positive FIT test Details of Present Illness: PMH: Acquired hypothyroidism Basal cell carcinoma of right cheek Essential hypertension Heart murmur, systolic Hyperlipidemia Irregular menses Medulloblastoma Memory difficulties Panic attacks Positive colorectal cancer screening using Cologuard test Word finding problem Surgical History History of brain tumor Status post breast reduction Allergies: Allergies Allergy/AdvReac Type Severity Reaction Status Date / Time No Known Allergies Allergy Verified 08/31/22 15:20 Review of Systems Review of Systems Comment: A 10 point ROS negative Exam Exam Comment: Gen appear: No acute distress HEENT: no icterus Chest: No overt resp distress Abd: soft, nontender, nondistended Psych: Stable affect, answering questions appropriately Neuro: A/Ox3 noted to move all extremities spontaneously Ext: no peripheral edema Plan Diagnosis/Plan: Unchanged I have reviewed the history and physical and performed a pertinent physical examination on my patient. No changes have occurred unless specified. Time Spent With Patient Time: Total time managing care of this patient today ____ minutes.
[2022-09-05 11:12] VITALS: BMI 28.2
[2022-09-05 11:22] LABS: UPreg QC Valid YES; Urine Pregnancy NEGATIVE (NEGATIVE)
[2022-09-05 11:33] VITALS: BP 154/70; PULSE 91; RESP 15; TEMP 37.2; O2SAT 99
--- NOTE | 2022-09-05 11:36 | P.OP_ITS ---
Operative Note Operative Note Date of Service: 09/05/22 Narrative: Procedure: Colonoscopy Indication: [Screening] [Personal history of polyps] [Chronic Diarrhea] [Lower GI bleeding] [Anemia] [+ FIT test] [Family history of colon cancer] Endoscopist: Aletha Martino MD Anesthesia Provider: Anesthesia type: [MAC] [General Anesthesia] Instrument: Olympus [id number]-H190L Consent: Indication, risks vs benefits, and alternatives were discussed with the patient who gave written informed consent to proceed. [An verifier operator was utilized to assist with the consent]. Monitoring: EKG, pulse, pulse oximetry and blood pressure were monitored throughout the procedure. Please see anesthesia flowsheet. Procedure: The patient was brought to the procedure room and placed in the left lateral decubitus position. IV medications were administered by the anesthesia provider in attendance. A digital rectal exam was performed which was [normal] [abnormal due to finding of hemorrhoids, anal tag, anal fistula]. The colonoscope was then inserted through the anus and advanced through the colon to the cecum at [cm,][and terminal ileum]. Mucosa was carefully examined under high definition white light as the instrument was slowly withdrawn in a retrograde panoramic fashion. Retroflexion was performed in [ascending colon and] rectum. The procedure was [not difficult] [somewhat difficult]. There were no immediate obvious complications. The quality of the prep was BBPS: []+[]+[] = [adequate] [inadequate in] Withdrawal time [] minutes. Limitations: [No limitations.] [Poor prep.] Findings: Mucosa: [Normal to cecum and terminal ileum.] [Loss of normal vacular pattern] [Erythema and congestion] [Erosions and ulceration] [Cobblestoning] [Random biopsies were taken to r/o microscopic colitis] [Cold forceps biopsies were taken from [colon] and sent for histology.] Protruding lesions: * [] [sessile] [semi-pedunculated] [pedunculated] polyp of size [] mm in []colon. Cold snare polypectomy was performed. The polyp was completely removed and retrieved. * [] [sessile] [semi-pedunculated] [pedunculated] polyp of size [] mm in []colon. Cold snare polypectomy was performed. The polyp was completely removed and retrieved. * [] [sessile] [semi-pedunculated] [pedunculated] polyp of size [] mm in []colon. Cold snare polypectomy was performed. The polyp was completely removed and retrieved. * [Medium] [Large] external hemorrhoids [without] stigmata of recent bleeding. Excavated lesions: * [Small] [Medium] [Large] diverticulosis of [sigmoid] [left sided] [whole] colon. Impression: 1. Normal colon mucosa 2. Total of [] polyps removed from [cecum,] [ascending,] [transverse,] [descendi ng,] [and sigmoid] colon [and rectum]. 3. External hemorrhoids Recommendations: - Follow path results. - Repeat colonoscopy in [3] [5-7] [7-10] years if polyps are adenomas or sessile serrated.
[2022-09-05] MEDS: Lactated Ringers 1,000 ML 100 ML IVCONT (11:40)
--- NOTE | 2022-09-05 12:23 | HO.ANESPROP2 ---
[facility] Active Problems Active Problems: All Active Problems (Updated 09/05/22 @ 11:09 by Margaux Gandara RN) Word finding problem (Acute) Memory difficulties (Acute) Heart murmur, systolic (Acute) Essential hypertension (Acute) Positive colorectal cancer screening using Cologuard test (Acute) Hyperlipidemia (Acute) Irregular menses (Acute) Acquired hypothyroidism (Acute) Medulloblastoma (Acute) Past Medical History Medical History Acquired hypothyroidism Basal cell carcinoma of right cheek Essential hypertension GERD (gastroesophageal reflux disease) Heart murmur, systolic Hyperlipidemia Irregular menses Medulloblastoma Memory difficulties Panic attacks Positive colorectal cancer screening using Cologuard test Word finding problem Family History Family History Father HTN (hypertension) Hyperlipidemia Mother HTN (hypertension) History of thyroid disorder Maternal Grandmother CHF (congestive heart failure) History of thyroid disorder Paternal Grandmother Breast cancer Melanoma Paternal Grandfather Cancer Diabetes mellitus Brother No problems noted. Sister No problems noted. Surgical History Surgical History History of brain tumor Status post breast reduction History of Problems with Anesthesia: No Social History Social History Housing: House Alcohol intake: never Patient Tobacco Use Status: Never used Tobacco e-Cigarette/Vaping Use: Never Used Use of substances other than those prescribed or required for medical reasons: No Are you DNR?: No Advance Directives: No Advance Directives Information Provided: Yes Current occupational status: disabled Cognitive needs: No Hearing needs: No Vision needs: Yes (legally blind) Meds Allergies Allergy/AdvReac Type Severity Reaction Status Date / Time No Known Allergies Allergy Verified 09/05/22 11:08 Active Medications: Current Medications Lactated Ringer's (Lr) 1,000 mls @ 100 mls/hr IVCONT .Q10H LEONA Last Admin: 09/05/22 11:40 Dose: 100 mls/hr Home Medications Medication Instructions Recorded Confirmed Last Taken Type levonorgestrel-ethinyl estradiol 1 tab PO DAILY 04/15/20 08/31/22 Unknown History 0.1 mg-20 mcg tablet Lactobacillus rhamnosus GG 20 cell PO 05/02/22 Unknown History billion cell capsule (Probiotic Digestive Care) calcium carbonate 600 mg calcium 600 mg PO DAILY 10/31/21 08/31/22 Unknown History (1,500 mg) tablet (Calcium) cholecalciferol (vitamin D3) 50 50 mcg PO DAILY 10/31/21 08/31/22 Unknown History mcg (2,000 unit) capsule Exam Exam Date and Time: September 05, 2022 1223 Height,Weight and Vital Signs: Height 4 ft 10 in Weight 61.235 kg Last Vital Signs Temp 99.0 F 09/05/22 11:33 Pulse 91 09/05/22 11:33 Resp 15 09/05/22 11:33 BP 154/70 H 09/05/22 11:33 Pulse Ox 99 09/05/22 11:33 O2 Del Method 09/05/22 11:33 Pertinent Lab Results Pertinent Lab Results: Laboratory Tests 09/05/22 10:55 Urine Test NEGATIVE Airway Mallampati Class: II TM Dist: >3cm Neck ROM: Full Loose/Missing/Broken Teeth: No Heart: RRR Lungs: CTA Assessment and Plan Assessment Anesthesia Assessment: Anesthesia Plan Discussed and Chart Reviewed Final Anesthetic Review History of Problems with Anesthesia: No NPO: Yes ASA Class: III Final Preanesthetic Review: Meds/Allgs Chart Reviewed, Consent Obtained/Reviewed and Anes Risks/Benef Reviewed Patient Risk: Low Procedure Risk: Low Anesthetic Plan Anesthetic Plan: MAC: Disposition: Standard PACU
--- NOTE | 2022-09-05 12:43 | P.OP_ITS ---
Operative Note Operative Note Date of Service: 09/05/22 Narrative: Procedure: Colonoscopy Indication: + FIT test Endoscopist: Aletha Martino MD Anesthesia Provider: Virginia Badillo CRNA Anesthesia type: MAC Instrument: Olympus [id number]-[id number] Consent: Indication, risks vs benefits, and alternatives were discussed with the patient who gave written informed consent to proceed. EKG, pulse, pulse oximetry and blood pressure were monitored throughout the procedure. Please see anesthesia flowsheet. Procedure: The patient was brought to the procedure room and placed in the left lateral decubitus position. IV medications were administered by the anesthesia provider in attendance. A digital rectal exam was performed which was normal. A distal attachment cap was affixed to the tip of the scope and the colonoscope was then inserted through the anus and advanced through the colon to the cecum at 75 cm,and terminal ileum. Appendiceal orifice and ileocecal valve were identified. Mucosa was carefully examined under high definition white light as the instrument was slowly withdrawn in a retrograde panoramic fashion. Retroflexion was performed in rectum. The procedure was not difficult. There were no immediate obvious complications. The quality of the prep was BBPS: 3+3+3 = excellent Withdrawal time 13 minutes. Limitations: No limitations. Findings: Mucosa: Normal to cecum and terminal ileum. Protruding lesions: * 2 sessile polyp of size 2-5 mm in transverse colon. Cold forceps polypectomy was performed. The polyps were completely removed and retrieved. * Small internal hemorrhoids without stigmata of recent bleeding. Excavated lesions: * Scattered diverticulosis of sigmoid colon. Impression: 1. Normal colon and terminal ileum mucosa 2. Total of 2 polyps removed from transverse colon. 3. Internal hemorrhoids 4. Diverticulosis Recommendations: - Follow path results. - Repeat colonoscopy in 7-10 years if polyps are adenomas.
[2022-09-05 13:28] VITALS: BP 97/62; PULSE 85; RESP 22; TEMP 36.8; O2SAT 96
[2022-09-05 13:43] VITALS: BP 105/71; PULSE 86; RESP 20; O2SAT 95
[2022-09-05 13:58] VITALS: BP 124/67; PULSE 81; RESP 16; TEMP 36.8; O2SAT 96
[2022-09-05 14:13] VITALS: BP 124/67; PULSE 84; RESP 16; O2SAT 96
== END 2022-09-05 14:34 | disposition home or self-care (01) ==
PROVIDERS: Nurse Practitioner; PCP Internal Medicine; Visit Provider Internal Medicine
PROC: 0DJD8ZZ Inspection of Lower Intestinal Tract, Via Natural or Artificial Opening Endoscopic (ICD-10-PCS; CPT 45378; principal; 2022-09-05 12:00)
DX: D12.3 Benign neoplasm of transverse colon (principal); R19.5 Other fecal abnormalities; K64.8 Other hemorrhoids; K57.90 Diverticulosis of intestine, part unspecified, without perforation or abscess without bleeding
CPT/HCPCS: 45380; 81025; 88305

== ENCOUNTER 2022-09-06 08:59 | Outpatient (REF) | payer OTHER, SELFPAY ==
--- NOTE | ~2022-09-06 | US_ITS ---
EXAMINATION: US KIDNEYS WITH RENAL ARTERY DOPPLER CLINICAL INFORMATION: Hypertension. COMPARISON: None TECHNIQUE: Ultrasound of the kidneys was performed along with color flow Doppler imaging and velocity measurements in the proximal mid and distal renal arteries. Aortic velocities were measured but were greater than 100 and therefore renal aortic ratios are not evaluated. FINDINGS: The kidneys appeared normal with the right kidney measuring 10.2 x 4.2 x 3.0 cm and the left kidney measuring 10.5 x 4.2 x 3.8 cm. No renal masses, renal stones or hydronephrosis is seen. Renal cortical thickness appears normal. On the right, there is elevated velocity seen proximally at 236 cm/s with normal velocities elsewhere. On the left, velocities are normal throughout with maximum in the mid renal artery at 130 cm/s. Segmental renal indices are all normal. The renal veins are patent. 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 US/US renal doppler IMPRESSION: 1. Elevated velocities in the proximal right renal artery suggesting possible right renal artery stenosis. CT angiography is recommended for further evaluation. 2. Incidentally noted celiac stenosis.
--- NOTE | ~2022-09-06 | US_ITS ---
EXAMINATION: US KIDNEYS WITH RENAL ARTERY DOPPLER CLINICAL INFORMATION: Hypertension. COMPARISON: None TECHNIQUE: Ultrasound of the kidneys was performed along with color flow Doppler imaging and velocity measurements in the proximal mid and distal renal arteries. Aortic velocities were measured but were greater than 100 and therefore renal aortic ratios are not evaluated. FINDINGS: The kidneys appeared normal with the right kidney measuring 10.2 x 4.2 x 3.0 cm and the left kidney measuring 10.5 x 4.2 x 3.8 cm. No renal masses, renal stones or hydronephrosis is seen. Renal cortical thickness appears normal. On the right, there is elevated velocity seen proximally at 236 cm/s with normal velocities elsewhere. On the left, velocities are normal throughout with maximum in the mid renal artery at 130 cm/s. Segmental renal indices are all normal. The renal veins are patent. 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 US/US renal BI IMPRESSION: 1. Elevated velocities in the proximal right renal artery suggesting possible right renal artery stenosis. CT angiography is recommended for further evaluation. 2. Incidentally noted celiac stenosis.
== END 2022-09-06 09:00 | disposition home or self-care (01) ==
LOC: HO.US 08:59
PROVIDERS: PCP Internal Medicine; Visit Provider Internal Medicine Nephrology
DX: I10 Essential (primary) hypertension (principal)
CPT/HCPCS: 76775; 93975

== ENCOUNTER → 2022-09-20 10:52 | Outpatient (BNVA) | payer OTHER, SELFPAY | PROVIDERS: PCP Internal Medicine; Referring Provider Internal Medicine; Visit Provider Internal Medicine | DX: K57.90 Diverticulosis of intestine, part unspecified, without perforation or abscess without bleeding (principal); Z86.010 Personal history of colon polyps | CPT/HCPCS: 99212 ==

== ENCOUNTER → 2022-09-26 08:05 | Outpatient (BNVA) | payer OTHER, SELFPAY | PROVIDERS: PCP Internal Medicine; Visit Provider Psychiatry & Neurology Neurology | DX: R47.89 Other speech disturbances (principal); R41.3 Other amnesia; R06.83 Snoring; G47.10 Hypersomnia, unspecified | CPT/HCPCS: 99202 ==

== ENCOUNTER → 2022-10-10 10:58 | Outpatient (REF) | payer OTHER, SELFPAY | LOC: HO.SL 10:58 | PROVIDERS: PCP Internal Medicine; Visit Provider Psychiatry & Neurology Neurology | DX: G47.33 Obstructive sleep apnea (adult) (pediatric) (principal); G47.10 Hypersomnia, unspecified; R06.83 Snoring | CPT/HCPCS: 95806 ==

== ENCOUNTER 2022-11-22 13:02 | Outpatient (REF) | payer OTHER, SELFPAY ==
[2022-11-22 13:16] LABS: MANUAL DIFF FLAG NO
[2022-11-22 14:34] LABS: Basophils Absolute Auto 0.1 X10*3/uL (0.0-0.2); Basophils Percent Auto 1.1 % (0-2); Eosinophils Percent Auto 0.5 % (0-4); Hematocrit 37.1 % (37.0-47.0); Hemoglobin 12.2 g/dl (12.0-16.0); Imm Gran Abs Auto 0.03 X10*3/uL (0.00-0.03); Imm Gran Pct Auto 0.4 % (0.0-0.4); Lymphocytes Absolute Auto 1.8 X10*3/uL (1.2-4.9); Lymphocytes Percent Auto 23.7 % (20-40); Mean Corpuscular HGB Conc 32.9 g/dl (31.0-35.0); Mean Corpuscular Hemoglobin 31.8 pg (27.0-33.0); Mean Corpuscular Volume 96.6 fL (80.0-98.0); Mean Platelet Volume 10.7 fL (9.4-12.3); Monocytes Absolute Auto 0.7 X10*3/uL (0.1-1.2); Neutrophils Absolute Auto 4.8 x10*3/uL (2.0-8.3); Neutrophils Percent Auto 65.3 % (45-73); Platelet Count 316 X10*3/uL (160-400); Red Blood Count 3.84 X10*6/uL (4.20-5.50); Red Cell Distribution Width 13.7 % (11.0-16.0); White Blood Count 7.4 X10*3/uL (4.8-10.8)
[2022-11-22 15:30] LABS: Erythrocyte Sedimentation Rate 19 MM/HR (0-20)
[2022-11-22 16:05] LABS: Alanine Aminotransferase 34 U/L (0-31); Albumin Level 4.3 g/dL (3.5-5.0); Alkaline Phosphatase 61 U/L (39-117); Anion Gap 14 (12-20); Aspartate Amino Transferase 23 U/L (5-31); Bilirubin Total 0.5 mg/dL (0.0-1.0); Blood Urea Nitrogen 14 mg/dL (9-16); Calcium 9.3 mg/dL (8.4-10.2); Carbon Dioxide 24 mmol/L (22-29); Chloride 104 mmol/L (96-108); Estimated Glomerular Filt Rate > 60; Glucose Random 92 mg/dL (60-115); Potassium 4.3 mmol/L (3.3-5.1); Sodium 138 mmol/L (135-145); Total Protein 7.2 g/dL (6.5-8.0)
[2022-11-22 16:35] LABS: Folate 13.3 ng/mL (> or = 4.0); TSH reflex Free T4 0.81 uIU/mL (0.32-4.0); Vitamin B12 229 pg/mL (200-900)
[2022-11-30 13:54] LABS: Vitamin D 25-OH, D2 <4 ng/mL; Vitamin D 25-OH, D3 51 ng/mL; Vitamin D 25-OH, Total 51 ng/mL (30-100)
== END 2022-11-22 13:03 | disposition home or self-care (01) ==
LOC: HO.LAB 13:02
PROVIDERS: PCP Internal Medicine; Visit Provider Psychiatry & Neurology Neurology
DX: R41.3 Other amnesia (principal); R47.89 Other speech disturbances
CPT/HCPCS: 36415; 80053; 82306; 82607; 82746; 84443; 85025; 85652

== ENCOUNTER → 2022-12-07 08:03 | Outpatient (BNVA) | payer OTHER, SELFPAY | PROVIDERS: PCP Internal Medicine; Visit Provider Psychiatry & Neurology Neurology | DX: R47.89 Other speech disturbances (principal); R41.3 Other amnesia | CPT/HCPCS: 99212 ==

== ENCOUNTER 2022-12-22 06:18 | Outpatient (REF) | payer OTHER, SELFPAY ==
[2022-12-22 12:32] LABS: Cholesterol 146 mg/dL; HDL Cholesterol 36 mg/dL; LDL Cholesterol Calculated 85 mg/dl; Triglycerides 127 mg/dL
== END 2022-12-22 06:19 | disposition home or self-care (01) ==
LOC: HO.HMGCLDS 06:18
PROVIDERS: PCP Internal Medicine; Visit Provider Internal Medicine
DX: E78.5 Hyperlipidemia, unspecified (principal)
CPT/HCPCS: 36415; 80061

== ENCOUNTER 2023-01-23 09:07 | Outpatient (REF) | payer OTHER, SELFPAY | END 2023-01-23 09:08 | disposition home or self-care (01) | LOC: HO.SH 09:07 | PROVIDERS: Visit Provider Psychiatry & Neurology Neurology | DX: H90.3 Sensorineural hearing loss, bilateral (principal); R47.89 Other speech disturbances; R41.3 Other amnesia | CPT/HCPCS: 92557 ==

== ENCOUNTER 2023-02-12 11:15 | Outpatient (REF) | payer OTHER, SELFPAY ==
--- NOTE | 2023-02-12 12:44 | MHC.AU.HA3 ---
Hearing Instrument Follow-Up- Binaural Date of Visit: 02/12/23 Right Ear: Leroy, , Color, Serial Number: Vamshi Brandon-Debbie JADE SN: [id number] Color: Margarita Creative Services Manager Repair Warranty: 12/14/2022 Creative Services Manager Loss and Damage Warranty: 12/14/2022 Battery Size: 312 Earmold/Dome/CShell/SlimTip:MicroSonic Nzpgj-x-kfyc canal lock with S.A.V Dispensed By: [facility] Date of Fittin11/11/2019 Left Ear: Leroy, , Color, Serial Number: Vamshi JADE SN: [id number] Color: Margarita Creative Services Manager Repair Warranty: 05/28/2019 Creative Services Manager Loss and Damage Warranty: 05/28/2019 Battery Size: 312 Earmold/Dome/CShell/SlimTip: MicroSonic Tcwcf-w-mevg canal lock with S.A.V Dispensed By: [facility] Date of Fittin03/15/2017 Follow-Up Summary: Odette returned with her hearing aids for maintenance and reprogramming. Cleaned both hearing aids and ear molds. Vacuumed microphones and replaced tubing. A listening check demonstrated that the hearing aids are in good working order. Odette has reportedly not worn her hearing aids in several years, although, she could not articulate a specific reason why. Ran feedback medical care manager and reprogrammed hearing aids to updated audio from 01/23/2023. Changed occlusion compensation to strong due to perception of Odette's own voice. Discussed importance of consistent use in reacclimating to the hearing aids and explained the balance between comfort and audibility. Increased noise management settings due to reported difficulty in group settings. Discussed the need for periodic tubing changes. Recommendations: Hearing instrument maintenance in 6 months, or sooner if needed. Please contact our clinic with any questions or concerns. Diagnosis Code(s): Primary Diagnosis: H90.3 Bilateral Sensorineural Hearing Loss Signature: Provider: Messi Marinelli, [facility]
== END 2023-02-12 11:16 | disposition home or self-care (01) ==
LOC: HO.HAP 11:15
PROVIDERS: Visit Provider Internal Medicine
DX: Z46.1 Encounter for fitting and adjustment of hearing aid (principal); H90.3 Sensorineural hearing loss, bilateral
CPT/HCPCS: 92593; 99499; V5266

== ENCOUNTER 2023-02-12 11:59 | Outpatient (REF) | payer OTHER, SELFPAY | END 2023-02-12 12:00 | disposition home or self-care (01) | LOC: HO.HAP 11:59 | PROVIDERS: Visit Provider Internal Medicine | DX: Z13.89 Encounter for screening for other disorder (principal) ==

== ENCOUNTER 2023-03-13 14:54 | Outpatient (REF) | payer OTHER, SELFPAY ==
--- NOTE | 2023-03-13 15:55 | MHC.AU.HA3 ---
Hearing Instrument Follow-Up- Binaural Date of Visit: 03/13/23 Right Ear: Leroy, Model, Color, Serial Number: Vamshi JADE SN: [id number] Color: Margarita Car Pre Cooler Repair Warranty: 12/14/2022 Car Pre Cooler Loss and Damage Warranty: 12/14/2022 Battery Size: 312 Earmold/Dome/CShell/SlimTip:MicroSonic Vggul-a-ugas canal lock with S.A.V Dispensed By: [facility] Date of Fittin11/11/2019 Left Ear: Leroy, Model, Color, Serial Number: Vamshi JAED SN: [id number] Color: Margarita Car Pre Cooler Repair Warranty: 05/28/2019 Car Pre Cooler Loss and Damage Warranty: 05/28/2019 Battery Size: 312 Earmold/Dome/CShell/SlimTip: MicroSonic Kqydc-f-vkjo canal lock with S.A.V Dispensed By: [facility] Date of Fittin03/15/2017 Follow-Up Summary: Odette reported that she has been wearing the hearing aids more often but is still having difficulty hearing including while watching television and in background noise. Data logging showed about 7 hours of use per day. Reprogrammed hearing aids with real ear measures and made adjustments to more appropriately match target. Comfortable at real ear settings and Odette noticed improvement in sound quality in office. Discussed realistic expectations of hearing aids given speech discrimination scores. Odette also inquired about a volume control. Push button previously set as program change with P2 set for phone/t-coil. Odette reported she has never used program 2 and did not know it existed. Deleted P2 at Odette's request and changed push button function to volume control (right raise, left lower). Recommendations: Hearing instrument follow-up or maintenance as needed. Please contact our clinic with any questions or concerns. Diagnosis Code(s): Primary Diagnosis: H90.3 Bilateral Sensorineural Hearing Loss Signature: Provider: Messi Marinelli, [facility]
== END 2023-03-13 14:55 | disposition home or self-care (01) ==
LOC: HO.HAP 14:54
PROVIDERS: Visit Provider Internal Medicine
DX: Z46.1 Encounter for fitting and adjustment of hearing aid (principal); H90.3 Sensorineural hearing loss, bilateral
CPT/HCPCS: V5020

== ENCOUNTER 2023-03-21 14:03 | Outpatient (REF) | payer OTHER, SELFPAY ==
[2023-03-21 15:03] LABS: Anion Gap 8 (12-20); Blood Urea Nitrogen 16 mg/dL (9-16); Calcium 9.6 mg/dL (8.4-10.2); Carbon Dioxide 28 mmol/L (22-29); Chloride 103 mmol/L (96-108); Estimated Glomerular Filt Rate > 60; Potassium 4.3 mmol/L (3.3-5.1); Sodium 135 mmol/L (135-145)
== END 2023-03-21 14:04 | disposition home or self-care (01) ==
LOC: HO.LAB 14:03
PROVIDERS: PCP Internal Medicine; Visit Provider Internal Medicine Nephrology
DX: I10 Essential (primary) hypertension (principal); I70.1 Atherosclerosis of renal artery
CPT/HCPCS: 36415; 80051; 82310; 82565; 84520

== ENCOUNTER 2023-04-06 08:35 | Outpatient (REF) | payer OTHER, SELFPAY ==
--- NOTE | ~2023-04-06 | MM_ITS ---
EXAMINATION: MM SCREENING DIGITAL BREAST TOMOSYNTHESIS, BILATERAL CLINICAL INFORMATION: Screening. Asymptomatic. The patient is status post breast reduction. COMPARISON: Mammography: This study is compared with prior exams dating back to 2019. TECHNIQUE: Digital breast tomosynthesis is performed in both the craniocaudal and mediolateral oblique views along with computer-aided detection (CAD). Synthesized 2D images are generated from the tomosynthesis. FINDINGS: There are scattered areas of fibroglandular density (ACR BI-RADS breast composition Category b). There are no significant masses, abnormal calcifications, or other abnormalities. Post reduction changes are present. MM/MM tomosynthesis screening BI IMPRESSION: No mammographic evidence of malignancy. ASSESSMENT: BI-RADS BI-RADS 2 - Benign Findings RECOMMENDATION: Routine annual mammography screening. 1 year F/U This examination should not preclude the clinical evaluation of a suspicious palpable abnormality. This patient's information was entered into a reminder system with a target due date for their next mammogram.
== END 2023-04-06 08:36 | disposition home or self-care (01) ==
LOC: HO.MAMMO 08:35
PROVIDERS: PCP Internal Medicine; Visit Provider Internal Medicine
DX: Z12.31 Encounter for screening mammogram for malignant neoplasm of breast (principal)
CPT/HCPCS: 77063; 77067

== ENCOUNTER → 2023-04-06 08:45 | Outpatient (BNV) | payer OTHER, SELFPAY | PROVIDERS: PCP Internal Medicine; Visit Provider Radiology Diagnostic Radiology | DX: Z12.31 Encounter for screening mammogram for malignant neoplasm of breast (principal) | CPT/HCPCS: 77063; 77067 ==

== ENCOUNTER 2023-04-06 09:14 | Outpatient (REF) | payer OTHER, SELFPAY | END 2023-04-06 09:15 | disposition home or self-care (01) | LOC: HO.HAP 09:14 | PROVIDERS: Visit Provider Internal Medicine | DX: Z46.1 Encounter for fitting and adjustment of hearing aid (principal); H90.3 Sensorineural hearing loss, bilateral | CPT/HCPCS: V5266 ==

== ENCOUNTER 2023-05-28 07:39 | Outpatient (REF) | payer OTHER, SELFPAY ==
[2023-05-28 11:49] LABS: Alanine Aminotransferase 32 U/L (0-31); Aspartate Amino Transferase 24 U/L (5-31); Cholesterol 194 mg/dL (<200); HDL Cholesterol 39 mg/dL (>40); LDL Cholesterol Calculated 114 mg/dL (<100); Triglycerides 207 mg/dL (<150)
[2023-05-28 12:10] LABS: Free T4 (Free Thyroxine) 1.06 ng/dL (0.71-1.85); Thyroid Stimulating Hormone 0.23 uIU/mL (0.32-4.0)
== END 2023-05-28 07:40 | disposition home or self-care (01) ==
LOC: HO.HMGCLDS 07:39
PROVIDERS: PCP Internal Medicine; Visit Provider Internal Medicine
DX: E78.5 Hyperlipidemia, unspecified (principal); E03.9 Hypothyroidism, unspecified
CPT/HCPCS: 36415; 80061; 84439; 84443; 84450; 84460

== ENCOUNTER 2023-06-05 09:24 | Outpatient (AMB) | payer OTHER, SELFPAY ==
--- NOTE | 2023-06-05 09:36 | A.OFFPC_ITS ---
Vital Signs 06/05/23 09:37 Height 4 ft 10 in Weight 133 lb 8 oz BMI 27.9 BP 132/86 Blood Pressure Location Lt brachial Position Sitting Pulse 84 Pulse Source Pulse Oximeter Pulse Oximetry (%) 99 Oxygen Delivery Method Room Air Intake Visit Reasons: Annual Physical Intake Note: Pt is here for her Annual PE Allergies No Known Allergies Allergy (Verified 07/30/23 22:07) Medication List - Last Reconciled 06/05/23 by Iliana Roa MD calcium carbonate (Calcium) 600 mg PO DAILY cholecalciferol (vitamin D3) 50 mcg PO DAILY estradiol 0.5 mg PO DAILY Lactobacillus rhamnosus GG (Probiotic Digestive Care) cells PO levothyroxine 75 mcg PO QAM 90 days lisinopril 5 mg PO DAILY lovastatin 40 mg PO BEDTIME omeprazole 20 mg PO DAILY progesterone micronized 100 mg PO BEDTIME Tobacco use date assessed: 06/05/23 Dental Screening Dental Screen Date: 06/05/23 Did you have a dental visit in the last 12 months?: Yes Did you have a dental problem in the last 6 months where you did not have access to dental care?: No Was dental information given to patient?: Patient has dentist HPI Annual Physical HPI Details 47-year-old lady here today for her phys ical exam. She is up-to-date with her screening mammogram, and had a positive Cologuard testing for which she was referred for screening colonoscopy done earlier this year with removal of a tubular adenoma polyp. She is due for a recheck in 7 years. She goes to [facility] in [place], sees Winnie Montes, with last Pap smear done in 2020 showing normal findings. [facility] Medical History (Updated 07/30/23 @ 22:38 by Iliana Roa MD) Renal artery stenosis Hypersomnolence Snoring GERD (gastroesophageal reflux disease) Word finding problem Memory difficulties Heart murmur, systolic Essential hypertension Positive colorectal cancer screening using Cologuard test Panic attacks Basal cell carcinoma of right cheek Hyperlipidemia Irregular menses Acquired hypothyroidism Medulloblastoma Surgical History Hx of colonoscopy History of brain tumor Status post breast reduction Family History Father HTN (hypertension) Hyperlipidemia Mother HTN (hypertension) History of thyroid disorder Maternal Grandmother CHF (congestive heart failure) History of thyroid disorder Paternal Grandmother Breast cancer Melanoma Paternal Grandfather Cancer Diabetes mellitus Brother No problems noted. Sister No problems noted. Social History Housing: House Alcohol intake: never Patient Tobacco Use Status: Never used Tobacco e-Cigarette/Vaping Use: Never Used Current occupational status: disabled Cognitive needs: No Hearing needs: No Vision needs: Yes (legally blind) Questionnaire Thrive Questionnaire Date Thrive assessed: 12/25/22 EMILY-7 AMB Questionnaire EMILY-7 Date EMILY - 7 assessed: 12/25/22 Source: Developed by Drs. Denzel Lemons, Caryn Hardy, Donn Arango and colleagues, with an educational alanna from [employer]. Review of Systems Const Denies body aches, Denies fatigue, Denies fever(s) and Denies weakness Eyes Details: blindness Reports no additional complaints ENT Denies dizziness, Denies nasal congestion, Denies nasal discharge, Denies disequilibrium, Denies post nasal drip and Denies sore throat Card Denies chest pain, Denies lightheadedness, Denies palpitations and Denies dyspnea Resp Denies chest congestion, Denies cough, Denies dyspnea and Denies wheezing GI Denies abdominal pain, Denies change in bowel habits and Reports heartburn ( intermittent, takes omeprazole every other day) Denies urinary frequency, Denies dysuria and Denies urinary urgency Musc Denies back pain, Denies myalgias, Denies arthralgias, Denies joint swelling and Denies stiffness Skin/Breast Denies lesions and Denies rash Neuro Denies dizziness, Denies disequilibrium and Denies weakness Psych Reports no additional complaints Endo Denies fatigue, Denies polydipsia, Denies polyuria and Denies palpitations Bimal/Lymph Reports no additional complaints Aller/Immun Denies seasonal rhinorrhea and Denies wheezing Physical exam (Primary Care) Vital Signs: Last Vital Signs Pulse 84 06/05/23 09:37 BP 132/86 06/05/23 09:37 Pulse Ox 99 06/05/23 09:37 Oxygen Delivery Method Room Air 06/05/23 09:37 BMI result Body Mass Index 27.9 Tobacco/Smoking Status: Tobacco use Status Tobacco use date assessed 06/05/23 06/05/23 09:45 Patient Tobacco Use Status Never used Tobacco 06/05/23 09:37 e-Cigarette/Vaping Use Never Used 06/05/23 09:37 Thrive Assessment: Date of Thrive Assessment Date Thrive assessed 12/25/22 06/05/23 09:37 Const Other: Alert oriented x3, no acute distress noted ambulatory with walking stick, has a supervisor coremaker together with her on this visit Orientation/consciousness: patient oriented x3 HENMT Head: Yes normocephalic General nose exam: Normal external nose present and No nasal discharge present Mouth: Normal oral and palatal mucosa present and moist mucous membranes Neck Other: Supple, no lymphadenopathy, thyroid gland nonpalpable and nontender to palpation Chest Breast/axilla palpation: normal palpation of the breasts Resp Effort & Inspection: normal respiratory effort and able to speak in complete sentences Auscultation: clear to auscultation bilaterally Cardio Other: S1-S2 present regular rate and rhythm , systolic murmur at left sternal border GI Palpation (GI): Soft to palpation, nontender, no guarding and no masses General: Yes no CVA tenderness Back/Spine/Pelvis Back: no CVA tenderness and No back tenderness Skin General skin exam: no rashes or lesions noted Neuro General: patient oriented x3, tone normal, moves all extremities, Normal light touch and pain sensation, no focal motor deficits and CN's II-XI intact bilaterally Gait exam (Neuro): Normal gait present and Assisted gait required Gait assisted method: walking stick Extrem General: Yes full ROM, Yes no joint enlargement, Yes no pedal edema and Yes no calf tenderness Psych Appearance: grossly normal and well kempt Mental Status: mental status grossly normal Speech and movement: Normal speech and movement present Affect: normal affect Attitude: cooperative Thought process: Normal thought process present Thought content: Normal thought content present Office Procedures Flu Questionnaire Does the patient have a severe egg allergy?: No Does the patient have severe life threatening allergies?: No Does the patient have a fever or illness today?: No Has the patient ever had Guillain-[place] Syndrome?: No Has the patient ever had any past reaction to a flu shot?: No Immunizations flu vacc [id number] 6mos up(PF) 60 mcg(15 mcgx4)/0.5 mL IM syringe Performing Provider: Iliana Roa MD [facility] Administered by: Yumiko Hernandez CMA on 06/05/23 10:33 Dose Route Admin Location Dispensed Lot Number Expiration Date NDC Dye Room Helper 0.5 mL IM Left Deltoid 0.5 mL [id number] 12/30/23 06556-183-10 [employer] VIS Given Date VIS Provided VIS Publication Date 06/05/23 Single Vaccine 21 Eligibility Eligibility Date Funding Source Not [facility] Eligible 06/05/23 Private Results Reviewed Results Reviewed: ENTERED: 05/28/23-[address]: ORDERED: AST, ALT, Lipid Panel, Free T4, TSH Test Result Flag Reference Site AST (GOT) 24 5-31 U/L ALT (GPT) 32 H 0-31 U/L Triglyceride 207 H <150 mg/dL Desirable Triglyceride: less than 150 mg/dL Borderline High Triglyceride 150-199 mg/dL High Triglyceride: 200-499 mg/dL Very High Triglyceride: greater than or equal to 5OO mg/dL Cholesterol 194 <200 mg/dL Desirable Cholesterol: less than 200 mg/dL Borderline High Cholesterol: 200-239 mg/dL High Cholesterol: greater than 239 mg/dL LDL Calculated 114 H <100 mg/dL Desirable LDL: less than 100 mg/dL Near Optimal/Above Optimal LDL: 110-129 mg/dL Borderline High LDL: 130-159 mg/dL High LDL: 160-189 mg/dL Very High LDL: greater than or equal to 190 mg/dL HDL 39 L >40 mg/dL Desirable HDL: greater than 40 mg/dL Note: This HDL assay may give artificially low results in patients with liver disease. Free T4 1.06 0.71-1.85 ng/dL TSH 3rd Gen. 0.23 L 0.32-4.0 uIU/mL Assessment and Plan Assessment & Plan (1) Annual visit for general adult medical examination with abnormal findings: Code(s): Z00.01 - Encounter for general adult medical examination with abnormal findings Plan: Discuss recent lab results with patient. Recommended dental visit every 6 months . Take adequate calcium in diet and vitamin-D 3 at 2000 IU per cap once a day, in addition to weight-bearing exercises to help maintain good muscle tone and weight control. Instructed to do self-breast exam, and is up-to-date with her yearly mammogram, and cervical cancer screening. She is also up-to-date with her screening colonoscopy which showed presence of a tubular adenoma which was removed. Up-to-date with her Tdap. Flu vaccine given today, patient already has an appointment for her COVID booster later this month. (2) Essential hypertension: Code(s): I10 - Essential (primary) hypertension Plan: Blood pressure at goal of less than 130/80. Seen by her major account manager Dr. Jaffe earlier this year and Doppler ultrasound ordered by him showed presence of using unilateral renal artery stenosis. She was continued on lisinopril but increased dose to 10 mg daily. Reinforced importance of following a low sodium diet, getting regular exercise, and lowering stress levels. She is due for recheck and repeat renal artery ultrasound next year (3) Hyperlipidemia: Code(s): E78.5 - Hyperlipidemia, unspecified Plan: Reviewed recent fasting lipid profile with patient with levels elevated triglycerides but LDL cholesterol within normal limits. . Continue with lovastatin 40 mg at bedtime , in addition to adherence to low-cholesterol diet and regular exercise, at least 30 minutes 3 to 4 times a week. Advised patient to make healthy food choices, eat more fruits, vegetables, whole grains, wild caught fish and low-fat dairy. Limit amount of meat and fried or fatty food products, as well as processed foods and fast foods. Follow-up scheduled with repeat fasting lipid panel in 6 months. (4) Acquired hypothyroidism: Code(s): E03.9 - Hypothyroidism, unspecified Plan: Recent thyroid levels are within normal limits, continue with current dose of levothyroxine 75 mcg daily in Orders: Orders Alanine Aminotransferase 12/01/23 I70.1 - Atherosclerosis of renal artery, I10 - Essential (primary) hypertension, E78.5 - Hyperlipidemia, unspecified, E03.9 - H ypothyroidism, unspecified Comprehensive [place]. Panel Fast 12/01/23 I70.1 - Atherosclerosis of renal artery, I10 - Essential (primary) hypertension, E78.5 - Hyperlipidemia, unspecified, E03.9 - Hypothyroidism, unspecified Complete Blood Count Auto Diff 12/01/23 I70.1 - Atherosclerosis of renal artery, I10 - Essential (primary) hypertension, E78.5 - Hyperlipidemia, unspecified, E03.9 - Hypothyroidism, unspecified Thyroid Stimulating Hormone 12/01/23 I70.1 - Atherosclerosis of renal artery, I10 - Essential (primary) hypertension, E78.5 - Hyperlipidemia, unspecified, E03.9 - Hypothyroidism, unspecified Influenza [id number] Immunization 06/05/23 Z23 - Encounter for immunization Vitamin D 25-OH Total 12/01/23 I70.1 - Atherosclerosis of renal artery, I10 - Essential (primary) hypertension, E78.5 - Hyperlipidemia, unspecified, E03.9 - Hypothyroidism, unspecified Aspartate Amino Transferase 12/01/23 I70.1 - Atherosclerosis of renal artery, I10 - Essential (primary) hypertension, E78.5 - Hyperlipidemia, unspecified, E03.9 - Hypothyroidism, unspecified Lipid Panel 12/01/23 I70.1 - Atherosclerosis of renal artery, I10 - Essential (primary) hypertension, E78.5 - Hyperlipidemia, unspecified, E03.9 - Hypothy roidism, unspecified Free T4 (Free Thyroxine) 12/01/23 E03.9 - Hypothyroidism, unspecified, I70.1 - Atherosclerosis of renal artery, I10 - Essential (primary) hypertension, E78.5 - Hyperlipidemia, unspecified Medications: Changed From lisinopril takes 1 tab 5 mg PO DAILY 90 tabs 1RF I10 - Essential (primary) hypertension To lisinopril takes 1 tab 5 mg (1/2 x 10 mg) PO DAILY 90 tabs 1RF I10 - Essential (primary) hypertension Coding Level of Care Code Est Pt Prev Care 40-64y(54278) Diagnoses Annual visit for general adult medical examination with abnormal findings Z00.01 Essential hypertension I10 Hyperlipidemia E78.5 Acquired hypothyroidism E03.9
[2023-06-05 09:37] VITALS: BP 132/86; PULSE 84; O2SAT 99; BMI 27.9
== END 2023-06-05 12:14 | disposition home or self-care (01) ==
PROVIDERS: Visit Provider Internal Medicine
DX: Z00.00 Encounter for general adult medical examination without abnormal findings (principal); I10 Essential (primary) hypertension; E78.5 Hyperlipidemia, unspecified; E03.9 Hypothyroidism, unspecified
CPT/HCPCS: 90471; 90686; 99396

== ENCOUNTER 2023-07-16 11:35 | Outpatient (REF) | payer OTHER, SELFPAY | END 2023-07-16 11:36 | disposition home or self-care (01) | LOC: HO.HAP 11:35 | PROVIDERS: Visit Provider Internal Medicine | DX: Z46.1 Encounter for fitting and adjustment of hearing aid (principal); H90.3 Sensorineural hearing loss, bilateral | CPT/HCPCS: V5266 ==

== ENCOUNTER 2023-07-23 14:27 | Outpatient (AMB) | payer OTHER, SELFPAY ==
[2023-07-23 14:30] VITALS: BP 140/88; PULSE 95; O2SAT 97; BMI 27.8
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
== END 2023-07-23 15:39 | disposition home or self-care (01) ==
PROVIDERS: Absent Provider Nurse Practitioner Family; PCP Internal Medicine; Visit Provider Psychiatry & Neurology Neurology
DX: R47.89 Other speech disturbances (principal); R41.3 Other amnesia; D32.9 Benign neoplasm of meninges, unspecified
CPT/HCPCS: 99214

== ENCOUNTER → 2023-07-23 14:27 | Outpatient (BNVA) | payer OTHER, SELFPAY | PROVIDERS: Absent Provider Nurse Practitioner Family; PCP Internal Medicine; Visit Provider Psychiatry & Neurology Neurology | DX: R47.89 Other speech disturbances (principal); R41.3 Other amnesia; D32.9 Benign neoplasm of meninges, unspecified | CPT/HCPCS: 99212 ==

== ENCOUNTER 2023-07-31 13:38 | Outpatient (AMB) | payer OTHER, SELFPAY ==
[2023-07-31 14:17] VITALS: BP 130/70; PULSE 96; O2SAT 95
--- NOTE | 2023-07-31 14:17 | HO.NEPHOV_ITS ---
HPI HPI Comments History of Present Illness Details I had which of seeing Odette in follow-up of her hypertension and unilateral renal artery stenosis. She had been on multiple antihypertensive medications in the past. Her amlodipine was discontinued and her lisinopril was increased to 10 mg at the last office visit with me. Her blood pressure has been at goal on her current medication regimen. She has not had any Doppler of her renal arteries recently for follow-up. She denies headache, chest pain, nausea, vomiting, shortness of breath, proximal nocturnal dyspnea, orthopnea, pedal edema or urinary symptoms. She does not take excess sodium in the diet. She is compliant with her medications. She avoids nonsteroidal anti- inflammatories. She is on statins. She was accompanied by her mother during this visit. She is blind. She denied any active complaints at the time of this office visit. [facility] Medical History (Updated 08/01/23 @ 12:57 by Ld Britton MD) Renal artery stenosis Hypersomnolence Snoring GERD (gastroesophageal reflux disease) Word finding problem Memory difficulties Heart murmur, systolic Essential hypertension Positive colorectal cancer screening using Cologuard test Panic attacks Basal cell carcinoma of right cheek Hyperlipidemia Irregular menses Acquired hypothyroidism Medulloblastoma Surgical History Hx of colonoscopy History of brain tumor Status post breast reduction Family History Father HTN (hypertension) Hyperlipidemia Mother HTN (hypertension) History of thyroid disorder Maternal Grandmother CHF (congestive heart failure) History of thyroid disorder Paternal Grandmother Breast cancer Melanoma Paternal Grandfather Cancer Diabetes mellitus Brother No problems noted. Sister No problems noted. Social History Housing: House Alcohol intake: never Patient Tobacco Use Status: Never used Tobacco e-Cigarette/Vaping Use: Never Used Current occupational status: disabled Cognitive needs: No Hearing needs: No Vision needs: Yes (legally blind) Vital Signs 07/31/23 14:17 BP 130/70 Blood Pressure Location Lt brachial Position Sitting Pulse 96 Pulse Source Pulse Oximeter Pulse Oximetry (%) 95 Oxygen Delivery Method Room Air Intake Medication List - Last Reconciled 07/31/23 by Ld Britton MD calcium carbonate (Calcium) 600 mg PO DAILY cholecalciferol (vitamin D3) 50 mcg PO DAILY estradiol 0.5 mg PO DAILY levothyroxine 75 mcg PO QAM 90 days lisinopril 10 mg PO DAILY lovastatin 40 mg PO BEDTIME omeprazole 20 mg PO DAILY progesterone micronized 100 mg PO BEDTIME Physical Exam Vital Signs: Last Vital Signs Pulse 96 07/31/23 14:17 BP 130/70 07/31/23 14:17 Pulse Ox 95 07/31/23 14:17 Oxygen Delivery Method Room Air 07/31/23 14:17 Const General: comfortable and no acute distress Orientation/consciousness: patient oriented x3 HEENT Head: Yes normocephalic Mouth: Normal oral and palatal mucosa present Neck Neck: Yes supple Resp Auscultation: clear to auscultation bilaterally Cardio Jugular venous distension: no JVD Rate: regular rate GI Palpation (GI): Soft to palpation Auscultation: normal bowel sounds General: Yes no CVA tenderness Back/Spine/Pelvis Back: no CVA tenderness Skin General skin exam: no rashes or lesions noted Neuro General: patient oriented x3 and moves all extremities Extrem General: Yes no pedal edema Assessment & Plan Assessment & Plan (1) Renal artery stenosis: Code(s): I70.1 - Atherosclerosis of renal artery (2) Hypertension: Code(s): I10 - Essential (primary) hypertension Qualifiers: Hypertension type: renovascular hypertension Qualified Code(s): I15.0 - Renovascular hypertension Plan Odette was found to be hypertensive and had been on multiple antihypertensive medications in the past. Investigations found her to have unilateral renal artery stenosis. Her amlodipine was discontinued at the last visit and her lisinopril dosage has been increased. Her blood pressure has been at goal. She has no signs of LVH or proteinuria. Her renal functions have been stable along with the serum potassium. I have ordered urine protein along with blood work for follow-up. She avoids nonsteroidal anti-inflammatories and takes only minimal salt. She maintains good hydration. I plan to order follow-up Doppler of her renal arteries after next visit. She is on statins. I did not make any medication changes today. All her and her mother's questions were answered. Follow-up given. Orders: Orders Electrolytes 07/31/23 I70.1 - Atherosclerosis of renal artery Calcium 07/31/23 I70.1 - Atherosclerosis of renal artery Creatinine 07/31/23 I70.1 - Atherosclerosis of renal artery Protein Creatinine Ratio, Ur 07/31/23 I70.1 - Atherosclerosis of renal artery Blood Urea Nitrogen 07/31/23 I70.1 - Atherosclerosis of renal artery Coding Level of Care Code Est Pt Level 4 (84178) Diagnoses Renal artery stenosis I70.1 Renovascular hypertension I15.0 Hypertension type: renovascular hypertension Results Reviewed Nephrology Results: Sodium 135 mmol/L (135-145) 03/21/23 Potassium 4.3 mmol/L (3.3-5.1) 03/21/23 Chloride 103 mmol/L (96-108) 03/21/23 Carbon Dioxide 28 mmol/L (22-29) 03/21/23 BUN 16 mg/dL (9-16) 03/21/23 Creatinine 0.92 mg/dL (0.5-1.4) 03/21/23 Calcium 9.6 mg/dL (8.4-10.2) 03/21/23
== END 2023-07-31 14:37 | disposition home or self-care (01) ==
PROVIDERS: PCP Internal Medicine; Visit Provider Internal Medicine Nephrology
DX: I70.1 Atherosclerosis of renal artery (principal); I15.0 Renovascular hypertension
CPT/HCPCS: 99214

== ENCOUNTER → 2023-07-31 13:38 | Outpatient (BNVA) | payer OTHER, SELFPAY | PROVIDERS: PCP Internal Medicine; Visit Provider Internal Medicine Nephrology | DX: I70.1 Atherosclerosis of renal artery (principal); I15.0 Renovascular hypertension; Z79.899 Other long term (current) drug therapy | CPT/HCPCS: 99212 ==

== ENCOUNTER 2023-08-22 12:42 | Outpatient (RCR) | payer OTHER, SELFPAY ==
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
== END 2023-10-08 15:56 | disposition still patient (30) ==
LOC: HO.SH 12:42
PROVIDERS: Visit Provider Nurse Practitioner Family
DX: R47.89 Other speech disturbances (principal); R41.3 Other amnesia
CPT/HCPCS: 96125

== ENCOUNTER 2023-09-10 11:11 | Outpatient (REF) | payer OTHER, SELFPAY | END 2023-09-10 11:12 | disposition home or self-care (01) | LOC: HO.HAP 11:11 | PROVIDERS: Visit Provider Internal Medicine | DX: Z46.1 Encounter for fitting and adjustment of hearing aid (principal); H90.3 Sensorineural hearing loss, bilateral | CPT/HCPCS: V5266 ==

== ENCOUNTER 2023-10-25 10:24 | Outpatient (REF) | payer OTHER, SELFPAY ==
[2023-10-25 14:03] LABS: Anion Gap 8 (12-20); Blood Urea Nitrogen 14 mg/dL (9-16); Calcium 9.7 mg/dL (8.4-10.2); Carbon Dioxide 31 mmol/L (22-29); Chloride 105 mmol/L (96-108); Estimated Glomerular Filt Rate > 60; Potassium 4.2 mmol/L (3.3-5.1); Sodium 140 mmol/L (135-145)
[2023-10-25 16:46] LABS: Creatinine Urine 58.52 mg/dL; Total Protein Urine Random < 7 mg/dL (<12)
== END 2023-10-25 10:25 | disposition home or self-care (01) ==
LOC: HO.HMGCLDS 10:24
PROVIDERS: PCP Internal Medicine; Visit Provider Internal Medicine Nephrology
DX: I70.1 Atherosclerosis of renal artery (principal)
CPT/HCPCS: 36415; 80051; 82310; 82565; 82570; 84156; 84520

== ENCOUNTER 2023-10-31 10:22 | Outpatient (AMB) | payer OTHER, SELFPAY ==
--- NOTE | 2023-10-31 10:24 | HO.NEPHOV_ITS ---
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 She had been on multiple antihypertensive medications in the past. Her amlodipine was discontinued and her lisinopril was increased to 10 mg at the last office visit with me. Her blood pressure has been at goal on her current medication regimen. She has not had any Doppler of her renal arteries recently for follow-up. She denies headache, chest pain, nausea, vomiting, shortness of breath, proximal nocturnal dyspnea, orthopnea, pedal edema or urinary symptoms. She does not take excess sodium in the diet. She is compliant with her medications. She avoids nonsteroidal anti-inflammatories. She is on statins. She was accompanied by her mother during this visit. She is blind. She denied any active complaints at the time of this office visit. [facility] Medical History (Updated 08/01/23 @ 12:57 by Ld Britton MD) Renal artery stenosis Hypersomnolence Snoring GERD (gastroesophageal reflux disease) Word finding problem Memory difficulties Heart murmur, systolic Essential hypertension Positive colorectal cancer screening using Cologuard test Panic attacks Basal cell carcinoma of right cheek Hyperlipidemia Irregular menses Acquired hypothyroidism Medulloblastoma Surgical History Hx of colonoscopy History of brain tumor Status post breast reduction Family History Father HTN (hypertension) Hyperlipidemia Mother HTN (hypertension) History of thyroid disorder Maternal Grandmother CHF (congestive heart failure) History of thyroid disorder Paternal Grandmother Breast cancer Melanoma Paternal Grandfather Cancer Diabetes mellitus Brother No problems noted. Sister No problems noted. Social History Housing: House Alcohol intake: never Patient Tobacco Use Status: Never used Tobacco e-Cigarette/Vaping Use: Never Used Current occupational status: disabled Cognitive needs: No Hearing needs: No Vision needs: Yes (legally blind) Physical Exam Vital Signs: Last Vital Signs Pulse 101 H 10/31/23 10:26 BP 130/78 10/31/23 10:26 Pulse Ox 98 10/31/23 10:26 Oxygen Delivery Method Room Air 10/31/23 10:26 BMI result Body Mass Index 27.5 Const General: comfortable and no acute distress Orientation/consciousness: patient oriented x3 HEENT Head: Yes normocephalic Mouth: Normal oral and palatal mucosa present Neck Neck: Yes supple Resp Auscultation: clear to auscultation bilaterally Cardio Jugular venous distension: no JVD Rate: regular rate GI Palpation (GI): Soft to palpation Auscultation: normal bowel sounds General: Yes no CVA tenderness Back/Spine/Pelvis Back: no CVA tenderness Skin General skin exam: no rashes or lesions noted Neuro General: patient oriented x3 and moves all extremities Extrem General: Yes no pedal edema Results Reviewed Nephrology Results: Sodium 140 mmol/L (135-145) 10/25/23 Potassium 4.2 mmol/L (3.3-5.1) 10/25/23 Chloride 105 mmol/L (96-108) 10/25/23 Carbon Dioxide 31 mmol/L (22-29) H 10/25/23 BUN 14 mg/dL (9-16) 10/25/23 Creatinine 0.96 mg/dL (0.5-1.4) 10/25/23 Calcium 9.7 mg/dL (8.4-10.2) 10/25/23 Urine Creatinine 58.52 mg/dL 10/25/23 Protein/Creatinin Ratio TNP 10/25/23 Assessment & Plan Assessment & Plan (1) Renal artery stenosis: Code(s): I70.1 - Atherosclerosis of renal artery Category: Medical (2) Essential hypertension: Code(s): I10 - Essential (primary) hypertension Category: Medical Plan Odette was found to be hypertensive and had been on multiple antihypertensive medications in the past. Investigations found her to have unilateral renal artery stenosis. Her amlodipine was discontinued in the past visit and her lisinopril dosage has been increased. Her blood pressure has been at goal. She has no signs of LVH or proteinuria. Her renal functions have been stable along with the serum potassium. She avoids nonsteroidal anti-inflammatories and takes only minimal salt. She maintains good hydration. I plan to order follow-up Doppler of her renal arteries after next visit. She is on statins. I did not make any medication changes today. All her and her mother's questions were answered. Follow-up given Orders: Orders Blood Urea Nitrogen Today I10 - Essential (primary) hypertension, I70.1 - Atherosclerosis of renal artery Creatinine Today I10 - Essential (primary) hypertension, I70.1 - Atherosclerosis of renal artery Electrolytes Today I10 - Essential (primary) hypertension, I70.1 - Atherosclerosis of renal artery Medications: Refilled lisinopril takes 1 tab 10 mg PO DAILY 90 tabs 3RF I10 - Essential (primary) hypertension Coding Level of Care Code Est Pt Level 4 (91448) Diagnoses Renal artery stenosis I70.1 Essential hypertension I10
[2023-10-31 10:26] VITALS: BP 130/78; PULSE 101; O2SAT 98; BMI 27.5
== END 2023-10-31 10:42 | disposition home or self-care (01) ==
PROVIDERS: PCP Internal Medicine; Visit Provider Internal Medicine Nephrology
DX: I70.1 Atherosclerosis of renal artery (principal); I10 Essential (primary) hypertension
CPT/HCPCS: 99214

== ENCOUNTER → 2023-10-31 10:22 | Outpatient (BNVA) | payer OTHER, SELFPAY | PROVIDERS: PCP Internal Medicine; Visit Provider Internal Medicine Nephrology | DX: I70.1 Atherosclerosis of renal artery (principal); I10 Essential (primary) hypertension | CPT/HCPCS: 99212 ==

== ENCOUNTER 2023-11-07 13:18 | Outpatient (REF) | payer OTHER, SELFPAY | END 2023-11-07 13:19 | disposition home or self-care (01) | LOC: HO.HAP 13:18 | PROVIDERS: Visit Provider Internal Medicine | DX: Z46.1 Encounter for fitting and adjustment of hearing aid (principal); H90.3 Sensorineural hearing loss, bilateral | CPT/HCPCS: V5266 ==

== ENCOUNTER 2023-12-03 06:21 | Outpatient (REF) | payer OTHER, SELFPAY ==
[2023-12-03 10:19] LABS: MANUAL DIFF FLAG NO
[2023-12-03 10:39] LABS: Basophils Absolute Auto 0.1 X10*3/uL (0.0-0.2); Basophils Percent Auto 1.4 % (0-2); Eosinophils Absolute Auto 0.1 X10*3/uL (0.0-0.4); Eosinophils Percent Auto 1.1 % (0-4); Hematocrit 38.3 % (37.0-47.0); Hemoglobin 12.1 g/dl (12.0-16.0); Imm Gran Abs Auto 0.03 X10*3/uL (0.00-0.03); Imm Gran Pct Auto 0.5 % (0.0-0.4); Lymphocytes Absolute Auto 1.9 X10*3/uL (1.2-4.9); Lymphocytes Percent Auto 30.2 % (20-40); Mean Corpuscular HGB Conc 31.6 g/dl (31.0-35.0); Mean Corpuscular Hemoglobin 30.6 pg (27.0-33.0); Mean Platelet Volume 10.2 fL (9.4-12.3); Monocytes Absolute Auto 0.7 X10*3/uL (0.1-1.2); Monocytes Percent Auto 11.4 % (2-11); Neutrophils Absolute Auto 3.6 x10*3/uL (2.0-8.3); Neutrophils Percent Auto 55.4 % (45-73); Platelet Count 334 X10*3/uL (160-400); Red Blood Count 3.95 X10*6/uL (4.20-5.50); Red Cell Distribution Width 13.4 % (11.0-16.0); White Blood Count 6.4 X10*3/uL (4.8-10.8)
[2023-12-03 11:18] LABS: Alanine Aminotransferase 22 U/L (0-31); Alkaline Phosphatase 70 U/L (39-117); Anion Gap 11 (12-20); Aspartate Amino Transferase 14 U/L (5-31); Bilirubin Total 0.3 mg/dL (0.0-1.0); Blood Urea Nitrogen 20 mg/dL (9-16); Calcium 9.6 mg/dL (8.4-10.2); Carbon Dioxide 29 mmol/L (22-29); Chloride 104 mmol/L (96-108); Cholesterol 187 mg/dL (<200); Estimated Glomerular Filt Rate > 60; Glucose Fasting 102 mg/dL (60-99); HDL Cholesterol 41 mg/dL (>40); LDL Cholesterol Calculated 117 mg/dL (<100); Potassium 4.6 mmol/L (3.3-5.1); Sodium 139 mmol/L (135-145); Total Protein 6.9 g/dL (6.5-8.0); Triglycerides 148 mg/dL (<150)
[2023-12-03 11:49] LABS: Free T4 (Free Thyroxine) 1.17 ng/dL (0.71-1.85); Vitamin D 25-OH Total 45.5 ng/mL (>30)
== END 2023-12-03 06:22 | disposition home or self-care (01) ==
LOC: HO.HMGCLDS 06:21
PROVIDERS: PCP Internal Medicine; Visit Provider Internal Medicine
DX: I70.1 Atherosclerosis of renal artery (principal); I10 Essential (primary) hypertension; E78.5 Hyperlipidemia, unspecified; E03.9 Hypothyroidism, unspecified
CPT/HCPCS: 36415; 80053; 80061; 82306; 84439; 84443; 85025

== ENCOUNTER 2023-12-06 09:07 | Outpatient (AMB) | payer OTHER, SELFPAY ==
--- NOTE | 2023-12-06 09:20 | MHC.PC.OV ---
Vital Signs 12/06/23 09:21 Height 4 ft 10 in Weight 128 lb BMI 26.7 BP 120/82 Blood Pressure Location Lt brachial Position Sitting Pulse 87 Pulse Source Pulse Oximeter Pulse Oximetry (%) 96 Oxygen Delivery Method Room Air Intake Visit Reasons: 6 month follow up Intake Note: pt here for 6 mo. f/u Allergies No Known Allergies Allergy (Verified 04/28/24 01:11) Medication List - Last Reconciled 12/06/23 by Iliana Roa MD calcium carbonate (Calcium 600) 600 mg PO DAILY cholecalciferol (vitamin D3) 50 mcg PO DAILY estradiol 0.5 mg PO DAILY levothyroxine 75 mcg PO QAM 90 days lisinopril 10 mg PO DAILY lovastatin 40 mg PO BEDTIME omeprazole 20 mg PO .qod progesterone micronized 100 mg PO BEDTIME Tobacco use date assessed: 12/06/23 Dental Screening Dental Screen Date: 12/06/23 Did you have a dental visit in the last 12 months?: Yes Did you have a dental problem in the last 6 months where you did not have access to dental care?: No Was dental information given to patient?: Patient has dentist HPI 6 month follow up HPI Details 48-year-old lady with hypertension, renal artery stenosis, hyperlipidemia and acquired hypothyroidism, here today for follow-up. She has been feeling well, with no complaints at present time. With taking medications. [facility] Medical History Meningioma Renal artery stenosis Hypersomnolence Snoring GERD (gastroesophageal reflux disease) Word finding problem Memory difficulties Heart murmur, systolic Essential hypertension Positive colorectal cancer screening using Cologuard test Panic attacks Basal cell carcinoma of right cheek Hyperlipidemia Irregular menses Acquired hypothyroidism Medulloblastoma Surgical History Hx of colonoscopy History of brain tumor Status post breast reduction Family History Father HTN (hypertension) Hyperlipidemia Mother HTN (hypertension) History of thyroid disorder Maternal Grandmother CHF (congestive heart failure) History of thyroid disorder Paternal Grandmother Breast cancer Melanoma Paternal Grandfather Cancer Diabetes mellitus Brother No problems noted. Sister No problems noted. Social History Housing: House Alcohol intake: never Patient Tobacco Use Status: Never used Tobacco e-Cigarette/Vaping Use: Never Used Current occupational status: disabled Cognitive needs: No Hearing needs: No Vision needs: Yes (legally blind) Questionnaire PHQ-9 Over the last 2 weeks, how often have you been bothered by any of the following problems? 1. Little interest or pleasure in doing things: not at all 2. Feeling down, depressed, or hopeless: not at all 3. Trouble falling or staying asleep, or sleeping too much: several days 4. Feeling tired or having little energy: not at all 5. Poor appetite or overeating: not at all 6. Feeling bad about yourself - or that you are a failure or have let yourself or your family down: not at all 7. Trouble concentrating on things, such as reading the newspaper or watching television: not at all 8. Moving or speaking so slowly that other people could have noticed. Or the opposite - being so fidgety or restless that you have been moving around a lot more than usual: not at all 9. Thoughts that you would be better off or of hurting yourself in some way: not at all Total score: 1 Depression Screening Interpretation: Negative Depression Screening Done: Yes 97047 - PHQ-9 Billing: Yes Source: Developed by Drs. Denzel Lemons, Caryn Hardy, Donn Arango and colleagues, with an educational alanna from [email or web address]. Thrive Questionnaire Date Thrive assessed: 12/06/23 I am a: Patient What is your living situation today?: I have a steady place to live Within the past 12 months, did the food you bought not last and you didn't have the money to get more?: Never true Within the past 12 months, did you worry whether your food would run out before you got money to buy more?: Never true Do you have trouble paying for medicines?: No Do you have trouble getting transportation to medical appointments?: No Do you have trouble paying your heating and electricity bill?: No Do you have trouble taking care of your child, family member or friend?: No Do you have trouble with day-to-day activities such as bathing, preparing meals, shopping, managing finances, etc.?: No Are you currently unemployed and looking for a job?: No Are you interested in more education?: No Please select the resources that you would like help with: None Currently or been in a relationship where the following occur: no concerns reported THRIVE Score: 0 AUDIT C Alcohol Use Questionnaire (AUDIT-C) 1. How often do you have a drink containing alcohol?: Never Total Score: 0 EMILY-7 AMB Questionnaire EMILY-7 Date EMILY - 7 assessed: 12/06/23 Feeling nervous, anxious, or on edge: 0 = Not at all Not being able to stop or control worryin = Not at all Worrying too much about different things: 0 = Not at all Trouble relaxin = Not at all Being so restless that it is hard to sit still: 0 = Not at all Becoming easily annoyed or irritable: 0 = Not at all Feeling afraid as if something awful might happen: 0 = Not at all Total EMILY-7 score (0-4 normal; 5-9 mild; 10-14 moderate; 15-21 severe): 0 Source: Developed by Drs. Denzel Lemons, Caryn Hardy, Donn Arnago and colleagues, with an educational alanna from [email or web address]. EMILY-7 Assessment Billing EMILY-7 Assessment Tool: EMILY-7 Assessment 24000 Review of Systems Const Denies body aches, Denies fatigue and Denies fever(s) Eyes Details: blindness Reports no additional complaints ENT Denies dizziness, Denies nasal congestion, Denies nasal discharge, Denies disequilibrium, Denies post nasal drip and Denies sore throat Card Denies chest pain, Denies lightheadedness, Denies palpitations and Denies dyspnea Resp Denies chest congestion, Denies cough, Denies dyspnea and Denies wheezing GI Denies abdominal pain, Denies change in bowel habits and Reports heartburn ( intermittent, takes omeprazole every other day) Denies urinary frequency, Denies dysuria and Denies urinary urgency Musc Denies back pain, Denies myalgias, Denies arthralgias, Denies joint swelling and Denies stiffness Skin/Breast Denies lesions and Denies rash Neuro Denies dizziness and Denies disequilibrium Psych Reports no additional complaints Endo Denies fatigue, Denies polydipsia, Denies polyuria and Denies palpitations Bimal/Lymph Reports no additional complaints Aller/Immun Denies seasonal rhinorrhea and Denies wheezing Physical exam (Primary Care) Vital Signs: Last Vital Signs Pulse 87 12/06/23 09:21 BP 120/82 12/06/23 09:21 Pulse Ox 96 12/06/23 09:21 Oxygen Delivery Method Room Air 12/06/23 09:21 BMI result Body Mass Index 26.7 Tobacco/Smoking Status: Tobacco use Status Tobacco use date assessed 12/06/23 12/06/23 09:30 Patient Tobacco Use Status Never used Tobacco 12/06/23 09:21 e-Cigarette/Vaping Use Never Used 12/06/23 09:21 PHQ-9: PHQ-9 Score PHQ-9: Total score 1 12/06/23 10:13 Depression Screening Interpretation: Negative Thrive Assessment: Date of Thrive Assessment Date Thrive assessed 12/06/23 12/06/23 09:30 Currently or been in a relationship where the following occur: no concerns reported Const Other: Alert oriented x3, no acute distress noted ambulatory with walking stick, has a semiconductor engineer together with her on this visit Orientation/consciousness: patient oriented x3 HENMA Head: Yes normocephalic General nose exam: Normal external nose present and No nasal discharge present Mouth: Normal oral and palatal mucosa present and moist mucous membranes Neck Other: Supple, no lymphadenopathy, thyroid gland nonpalpable and nontender to palpation Resp Effort & Inspection: normal respiratory effort and able to speak in complete sentences Auscultation: clear to auscultation bilaterally Cardio Other: S1-S2 present regular rate and rhythm , systolic murmur at left sternal border GI Palpation (GI): Soft to palpation, nontender, no guarding and no masses General: Yes no CVA tenderness Back/Spine/Pelvis Back: no CVA tenderness and No back tenderness Neuro General: patient oriented x3, tone normal, moves all extremities, Normal light touch and pain sensation, no focal motor deficits and CN's II-XI intact bilaterally Gait exam (Neuro): Normal gait present and Assisted gait required Gait assisted method: walking stick Extrem General: Yes full ROM, Yes no joint enlargement, Yes no pedal edema and Yes no calf tenderness Results Reviewed Results Reviewed: Name: Odette Reilly Age/Sex: 48/F : 1975 Unit#: [id number] Attend Dr: Iliana Roa MD Re12/03/23 Status: DEP REF Location: [facility] [address] Disch: SPEC : [id number] PASTOR: 12/03/23 STATUS: COMP REQ : [id number] RECD: 12/03/23-[address]: Iliana Roa MD COMP: 12/03/23 ENTERED: 12/03/23 [facility]: ORDERED: CBC Auto Diff Test Result Flag Reference WBC 6.4 4.8-10.8 X10*3/uL RBC 3.95 L 4.20-5.50 X10*6/uL HGB 12.1 12.0-16.0 g/dl HCT 38.3 37.0-47.0 % MCV 97.0 80.0-98.0 fL MCH 30.6 27.0-33.0 pg MCHC 31.6 31.0-35.0 g/dl RDW 13.4 11.0-16.0 % PLT 334 160-400 X10*3/uL MPV 10.2 9.4-12.3 fL Neut Pct Auto 55.4 45-73 % ImGran Pct Auto 0.5 H 0.0-0.4 % Lymp Pct Auto 30.2 20-40 % [place] Pct Auto 11.4 H 2-11 % Eos Pct Auto 1.1 0-4 % Baso Pct Auto 1.4 0-2 % NRBC Pct Auto 0.0 0.0-0.2 /100WBC ANC Neut Abs # 3.6 2.0-8.3 x10*3/uL ImGran Abs Auto 0.03 0.00-0.03 X10*3/uL Lymph Abs Auto 1.9 1.2-4.9 X10*3/uL [place] Abs Auto 0.7 0.1-1.2 X10*3/uL Eos Abs Auto 0.1 0.0-0.4 X10*3/uL Baso Abs Auto 0.1 0.0-0.2 X10*3/uL NRBC Abs Auto 0.000 0.0-0.012 X10*3/uL Name: Doray,Odette M Age/Sex: 48/F : 1975 Unit#: [id number] Attend Dr: Iliana Roa MD Re12/03/23 Status: DEP REF Location: [facility] Disch: SPEC : [id number] PASTOR: 12/03/23 STATUS: COMP REQ : [id number] RECD: 12/03/23-[address]: Iliana Roa MD COMP: 12/03/23-114 ENTERED: 12/03/23 [facility]: ORDERED: CMP Fast, Lipid Panel, Vitamin D 25-OH, Free T4, TSH Test Result Flag Reference Sodium 139 135-145 mmol/L Potassium 4.6 3.3-5.1 mmol/L CL 104 96-108 mmol/L CO2 29 22-29 mmol/L Gap 11 L 12-20 BUN 20 H 9-16 mg/dL Creat 0.92 0.5-1.4 mg/dL EGFR > 60 NOTE: For -Prydeinig individuals, multiply the result by 1.210. Chronic Kidney Disease: Estimated GFR < 60 mL/min/1.73m2 Severe Kidney Disease: Estimated GFR < 15 mL/min/1.73m2 FBS 102 H 60-99 mg/dL A fasting glucose from 100-125 mg/dl is considered impaired (pre-diabetes). CA 9.6 8.4-10.2 mg/dL Total Bili 0.3 0.0-1.0 mg/dL AST (GOT) 14 5-31 U/L ALT (GPT) 22 0-31 U/L Protein, Total 6.9 6.5-8.0 g/dL Alb 4.0 3.5-5.0 g/dL Triglyceride 148 <150 mg/dL Desirable Triglyceride: less than 150 mg/dL Borderline High Triglyceride 150-199 mg/dL High Triglyceride: 200-499 mg/dL Very High Triglyceride: greater than or equal to 5OO mg/dL Cholesterol 187 <200 mg/dL Desirable Cholesterol: less than 200 mg/dL Borderline High Cholesterol: 200-239 mg/dL High Cholesterol: greater than 239 mg/dL LDL Calculated 117 H <100 mg/dL Desirable LDL: less than 100 mg/dL Near Optimal/Above Optimal LDL: 110-129 mg/dL Borderline High LDL: 130-159 mg/dL High LDL: 160-189 mg/dL Very High LDL: greater than or equal to 190 mg/dL HDL 41 >40 mg/dL Desirable HDL: greater than 40 mg/dL Note: This HDL assay may give artificially low results in patients with liver disease. Alk Phos 70 39-117 U/L Vit D 25-OH Tot 45.5 >30 ng/mL Health Based Reference Values* < 20 ng/mL Deficient 20-30 ng/mL Insufficient > 30 ng/mL Sufficient *Leobardo HERNDON. N Engl J Med. 2007;357:266-280 Care must be taken in interpreting Vitamin D results from different laboratories and methodologies. Published data demonstrated that results from patients undergoing hemodialysis may show a negative bias when tested with various automated 25-OH vitamin D assays when compared to LC-MS/MS. When testing samples from patients whose predominant form of Vitamin D is Vitamin D2, such as patients receiving Vitamin D2 supplementation, results that are subtherapeutic should be confirmed with another method such as LC-MS/MS. Free T4 1.17 0.71-1.85 ng/dL TSH 3rd Gen. 0.20 L 0.32-4.0 uIU/mL Coding Level of Care Code Est Pt Level 4 (16480) Complex EM visit Add On G2211 Diagnoses Essential hypertension I10 Hyperlipidemia E78.5 Acquired hypothyroidism E03.9 Additional Codes EMILY-7 Assessment Billing - EMILY-7 Assessment Tool: EMILY-7 Assessment 59010 ([id number])
[2023-12-06 09:21] VITALS: BP 120/82; PULSE 87; O2SAT 96; BMI 26.7
== END 2023-12-06 10:16 | disposition home or self-care (01) ==
LOC: HO.HMGC 09:07
PROVIDERS: PCP Internal Medicine; Visit Provider Internal Medicine
DX: I10 Essential (primary) hypertension (principal); E78.5 Hyperlipidemia, unspecified; E03.9 Hypothyroidism, unspecified
CPT/HCPCS: 96127; 99214; G2211

== ENCOUNTER 2023-12-26 13:21 | Outpatient (REF) | payer OTHER, SELFPAY | END 2023-12-26 13:22 | disposition home or self-care (01) | LOC: HO.HAP 13:21 | PROVIDERS: Visit Provider Internal Medicine | DX: Z46.1 Encounter for fitting and adjustment of hearing aid (principal); H90.3 Sensorineural hearing loss, bilateral | CPT/HCPCS: V5266 ==

== ENCOUNTER 2024-01-23 12:30 | Outpatient (RCR) | payer OTHER, SELFPAY ==
--- NOTE | 2024-01-23 14:23 | MHC.SL.SOA ---
Referring Provider: Lo Infante NP Reason for Referral: Difficulties with speech and memory Date of Plan of Treatment: 08/22/23 Onset of Symptoms/Illness: 08/31/88 Date Treatment Started: 08/22/23 Medical Diagnosis:Memory deficit Primary Speech Language Diagnosis:R41.841 Cognitive communication disorder Number of Authorized Visits Remainin Authorization End Date:01/28/24 Reason for Visit:31013 Individual Treatment Subjective:This is Odette's discharge visit. She arrives with Mother who is available for check-out counseling. Objective: The following goals were addressed in this course of Cognitive-Communication Therapy: 1.1. Ms. Reilly will independently identify a target word when provided with 3-4 related words or phrases in a word deduction tasks with 80% accuracy. 1.2. Ms. Reilly will utilize Semantic Feature cues (i.e. category, use, function, physical components, association, location) to describe items to a listener successfully in 80% of opportunities with visual support (chart). 2.1. Ms. Reilly will recite 3 details from a voicemail message (i.e. appointment type, date, time) with >80% accuracy and moderate assistance. 2.2. Ms. Reilly will recall 5-6 items (i.e. grocery list, medication list, etc.) after a 30-minute delay given intermittent minimal verbal cues in order to increase independence during functional memory tasks. 2.3. Ms. Reilly will recall 3 compensatory strategies for short-term memory (i.e. audio reminders, calendar, mental rehearsal, repetition, visualization) in 4 out of 5 opportunities when provided with minimal verbal prompting across 3 sessions. Assessment:Odette was a motivated and willing participant in all activities presented to her. She enjoys playing card games (labeled in braille) and listening to material on-line with her [employer] device. Her Family was consistently available to provide insight into HEP and assist with carry-over. One of the barriers identified was that it would most likely be her Mother who only visits with her occasionally during the week. We identified the role of attention and working-memory in encoding to short-term memory. She was encouraged to use compensatory strategies (chunking, audio recording) to facilitate the recall of information. At the end of today's discharge session we reviewed the work we achieved and discussed options for her continued cognitive stimulation in the community. She identified continued involvement with her chapter in upcoming picnics as one option. HEALTH INFORMATICS ADVISOR reiterated that though she has graduated this course of therapy, she may feel the need to return at a future date and to speak with her referring provider if that is the case. Plan: Goal # : 1.1. Ms. Reilly will independently identify a target word when provided with 3-4 related words or phrases in a word deduction tasks with 80% accuracy. 1.2. Ms. Reilly will utilize Semantic Feature cues (i.e. category, use, function, physical components, association, location) to describe items to a listener successfully in 80% of opportunities with visual support (chart). Status of Goal: Goal Met Goal # : 2.1. Ms. Reilly will recite 3 details from a voicemail message (i.e. appointment type, date, time) with >80% accuracy and moderate assistance. 2.2. Ms. Reilly will recall 5-6 items (i.e. grocery list, medication list, etc.) after a 30-minute delay given intermittent minimal verbal cues in order to increase independence during functional memory tasks. 2.3. Ms. Reilly will recall 3 compensatory strategies for short-term memory (i.e. audio reminders, calendar, mental rehearsal, repetition, visualization) in 4 out of 5 opportunities when provided with minimal verbal prompting across 3 sessions. Status of Goal: Goal Met Seen by: Graduate/Clinical Fellow: No Supervisory Statement: f_Reg Query Last Value , MHC.AU.SIGNATUR Speech Language Pathologist: Dimitrios Montgomery M.A., [facility]-HEALTH INFORMATICS ADVISOR
== END 2024-01-24 10:12 | disposition home or self-care (01) ==
LOC: HO.SH 12:30
PROVIDERS: PCP Internal Medicine; Visit Provider Nurse Practitioner Family
DX: R47.89 Other speech disturbances (principal); R41.3 Other amnesia
CPT/HCPCS: 92507

== ENCOUNTER 2024-01-23 13:19 | Outpatient (REF) | payer OTHER, SELFPAY | END 2024-01-23 13:20 | disposition home or self-care (01) | LOC: HO.HAP 13:19 | PROVIDERS: Visit Provider Internal Medicine | DX: Z46.1 Encounter for fitting and adjustment of hearing aid (principal); H90.3 Sensorineural hearing loss, bilateral | CPT/HCPCS: V5266 ==

== ENCOUNTER 2024-03-25 12:58 | Outpatient (AMB) | payer OTHER, SELFPAY ==
--- NOTE | 2024-03-25 12:59 | A.OFFVIS_ITS ---
Vital Signs 03/25/24 13:00 Height 4 ft 10 in Weight 133 lb 2 oz BMI 27.8 BP 146/88 H Blood Pressure Location Rt brachial Position Sitting Respiration 16 Pulse 88 Pulse Source Pulse Oximeter Pulse Oximetry (%) 98 Oxygen Delivery Method Room Air Intake Visit Reasons: 9 mo f/u Intake Note: Pt presents to the office for an 8 month follow up for memory loss. Embroidery Specialist Required: No Allergies No Known Allergies Allergy (Verified 03/25/24 13:00) Medication List - Last Reconciled 03/25/24 by Jessica Ferrer MD calcium carbonate (Calcium 600) 600 mg PO DAILY cholecalciferol (vitamin D3) 50 mcg PO DAILY estradiol 0.5 mg PO DAILY levothyroxine 75 mcg PO QAM 90 days lisinopril 10 mg PO DAILY lovastatin 40 mg PO BEDTIME omeprazole 20 mg PO .qod progesterone micronized 100 mg PO BEDTIME HPI Comments Details: 48-yr-old female presents for f/u visit. Accompanied by her mother. she is using her CPAP regularly. Patient feels her memory is stable She is independent in most ADLS. Her sister provides lunch and supper.she goes to the gym with her mother 5days a week. she does her dishes laundry cleaning etc No falls . [facility] Medical History Meningioma Renal artery stenosis Hypersomnolence Snoring GERD (gastroesophageal reflux disease) Word finding problem Memory difficulties Heart murmur, systolic Essential hypertension Positive colorectal cancer screening using Cologuard test Panic attacks Basal cell carcinoma of right cheek Hyperlipidemia Irregular menses Acquired hypothyroidism Medulloblastoma Surgical History Hx of colonoscopy History of brain tumor Status post breast reduction Family History Father HTN (hypertension) Hyperlipidemia Mother HTN (hypertension) History of thyroid disorder Maternal Grandmother CHF (congestive heart failure) History of thyroid disorder Paternal Grandmother Breast cancer Melanoma Paternal Grandfather Cancer Diabetes mellitus Brother No problems noted. Sister No problems noted. Social History Housing: House Alcohol intake: never Patient Tobacco Use Status: Never used Tobacco e-Cigarette/Vaping Use: Never Used Current occupational status: disabled Cognitive needs: No Hearing needs: No Vision needs: Yes (legally blind) Physical Exam Vital Signs: Last Vital Signs Pulse 88 03/25/24 13:00 Resp 16 03/25/24 13:00 BP 146/88 H 03/25/24 13:00 Pulse Ox 98 03/25/24 13:00 Oxygen Delivery Method Room Air 03/25/24 13:00 BMI result Body Mass Index 27.8 Const General: cooperative and no acute distress Orientation/consciousness: patient oriented x3 HEENT Head: Yes normocephalic Resp Effort & Inspection: normal respiratory effort and able to speak in complete sentences Neuro General: patient oriented x3 Cognition (Neuro): normal cognition Motor exam (neuro): 5/5 motor strength present throughout Psych Appearance: grossly normal Mental Status: mental status grossly normal Speech and movement: Normal speech and movement present Affect: normal affect Attitude: cooperative Thought process: Normal thought process present Orientation What is the (year) (season) (date) (day) (month)?: year, season, date, day and month Where are we (state) (county) (town or city) (hospital) (floor)?: state, county, town or city, hospital/clinic and floor Registration Name of 3 unrelated objects clearly and slowly, then ask patient to repeat all 3 of them. (1st repeat determines score. Make sure they can repeat all three): object 1, object 2 and object 3 Attention & Calculation (CHOOSE ONE) Spell WORLD backwards (DLROW): 5 letters Recall Ask patient to repeat the 3 items from question #3.: object 1 and object 2 Language Ask the patient to 'take a piece of paper with their right hand' 'fold paper in half' 'place paper on floor': take paper in right hand, fold paper in half and place paper on floor Score Score: 23 Assessment & Plan Assessment & Plan (1) Word finding problem: Comment: ? hearing impairment Code(s): R47.89 - Other speech disturbances Category: Medical (2) Memory difficulties: Comment: she did well on MMSE - she had difficulty during the evaluation due to her hearing difficulty Code(s): R41.3 - Other amnesia Category: Medical (3) Meningioma: Code(s): D32.9 - Benign neoplasm of meninges, unspecified Category: Medical Plan Continue speech exercises and cognitive exercises Reviewed MRI results - will do a follow up in 1 year. Orders: Orders MR head/brain wo/w con 1 Year D32.9 - Benign neoplasm of meninges, unspecified Scribe Plan - Not visible on output: Reviewed possible medication side effects, including but not limited to drowsiness, dizziness. Coding Level of Care Code Est Pt Level 4 (36653) Complex EM visit Add On G2211 Diagnoses Word finding problem R47.89 Memory difficulties R41.3 Meningioma D32.9
[2024-03-25 13:00] VITALS: BP 146/88; PULSE 88; RESP 16; O2SAT 98; BMI 27.8
== END 2024-03-25 13:30 | disposition home or self-care (01) ==
PROVIDERS: PCP Internal Medicine; Visit Provider Psychiatry & Neurology Neurology
DX: R47.89 Other speech disturbances (principal); R41.3 Other amnesia; D32.9 Benign neoplasm of meninges, unspecified
CPT/HCPCS: 99214; G2211

== ENCOUNTER → 2024-03-25 12:58 | Outpatient (BNVA) | payer OTHER, SELFPAY | PROVIDERS: PCP Internal Medicine; Visit Provider Psychiatry & Neurology Neurology | DX: R47.89 Other speech disturbances (principal); R41.3 Other amnesia; D32.9 Benign neoplasm of meninges, unspecified | CPT/HCPCS: 99212 ==

== ENCOUNTER 2024-04-09 08:42 | Outpatient (REF) | payer OTHER, SELFPAY ==
--- NOTE | ~2024-04-09 | MM_ITS ---
EXAMINATION: MM SCREENING DIGITAL BREAST TOMOSYNTHESIS, BILATERAL CLINICAL INFORMATION: Screening. Asymptomatic. COMPARISON: Mammography: Comparison is made with available priors TECHNIQUE: Digital breast mammography with tomosynthesis is performed in both the craniocaudal and mediolateral oblique views along with computer-aided detection (CAD). FINDINGS: There are scattered areas of fibroglandular density (ACR BI-RADS breast composition Category b). Bilateral reduction mammoplasty changes are stable. There are no significant masses, abnormal calcifications, or other abnormalities. MM/MM tomosynthesis screening BI IMPRESSION: No mammographic evidence of malignancy. ASSESSMENT: BI-RADS BI-RADS 2 - Benign Findings RECOMMENDATION: Routine annual mammography screening. 1 year F/U This examination should not preclude the clinical evaluation of a suspicious palpable abnormality. This patient's information was entered into a reminder system with a target due date for their next mammogram. Electronically signed by: Gilda Duong DO 04/21/2024 05:57 PM EDT
== END 2024-04-09 08:43 | disposition home or self-care (01) ==
LOC: HO.MAMMO 08:42
PROVIDERS: PCP Internal Medicine; Visit Provider Internal Medicine
DX: Z12.31 Encounter for screening mammogram for malignant neoplasm of breast (principal)
CPT/HCPCS: 77063; 77067

== ENCOUNTER → 2024-04-09 08:45 | Outpatient (BNV) | payer OTHER, SELFPAY | PROVIDERS: PCP Internal Medicine; Visit Provider Internal Medicine | DX: Z12.31 Encounter for screening mammogram for malignant neoplasm of breast (principal) | CPT/HCPCS: 77063; 77067 ==

== ENCOUNTER 2024-04-28 12:58 | Outpatient (REF) | payer OTHER, SELFPAY | END 2024-04-28 12:59 | disposition home or self-care (01) | LOC: HO.HAP 12:58 | PROVIDERS: Visit Provider Internal Medicine | DX: Z46.1 Encounter for fitting and adjustment of hearing aid (principal); H90.3 Sensorineural hearing loss, bilateral | CPT/HCPCS: V5266 ==

== ENCOUNTER 2024-05-01 11:18 | Outpatient (REF) | payer OTHER, SELFPAY ==
[2024-05-01 14:12] LABS: Anion Gap 11 (12-20); Blood Urea Nitrogen 13 mg/dL (9-16); Carbon Dioxide 28 mmol/L (22-29); Chloride 103 mmol/L (96-108); Estimated Glomerular Filt Rate > 60; Potassium 4.8 mmol/L (3.3-5.1); Sodium 137 mmol/L (135-145)
== END 2024-05-01 11:19 | disposition home or self-care (01) ==
LOC: HO.HMGCLDS 11:18
PROVIDERS: PCP Internal Medicine; Visit Provider Internal Medicine Nephrology
DX: I70.1 Atherosclerosis of renal artery (principal); I10 Essential (primary) hypertension
CPT/HCPCS: 36415; 80051; 82565; 84520

== ENCOUNTER 2024-05-07 09:29 | Outpatient (AMB) | payer OTHER, SELFPAY ==
--- NOTE | 2024-05-07 09:37 | HO.NEPHOV ---
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 She had been on multiple antihypertensive medications in the past. Her amlodipine was discontinued and her lisinopril was increased to 10 mg with good blood pressure control. She has not had any Doppler of her renal arteries recently for follow-up. She denies headache, chest pain, nausea, vomiting, shortness of breath, proximal nocturnal dyspnea, orthopnea, pedal edema or urinary symptoms. She does not take excess sodium in the diet. She is compliant with her medications. She avoids nonsteroidal anti-inflammatories. She is on statins. She was accompanied by her mother during this visit. She is blind. She denied any active complaints at the time of this office visit [facility] Medical History Meningioma Renal artery stenosis Hypersomnolence Snoring GERD (gastroesophageal reflux disease) Word finding problem Memory difficulties Heart murmur, systolic Essential hypertension Positive colorectal cancer screening using Cologuard test Panic attacks Basal cell carcinoma of right cheek Hyperlipidemia Irregular menses Acquired hypothyroidism Medulloblastoma Surgical History Hx of colonoscopy History of brain tumor Status post breast reduction Family History Father HTN (hypertension) Hyperlipidemia Mother HTN (hypertension) History of thyroid disorder Maternal Grandmother CHF (congestive heart failure) History of thyroid disorder Paternal Grandmother Breast cancer Melanoma Paternal Grandfather Cancer Diabetes mellitus Brother No problems noted. Sister No problems noted. Social History Housing: House Alcohol intake: never Patient Tobacco Use Status: Never used Tobacco e-Cigarette/Vaping Use: Never Used Current occupational status: disabled Cognitive needs: No Hearing needs: No Vision needs: Yes (legally blind) Physical Exam Const General: comfortable and no acute distress Orientation/consciousness: patient oriented x3 HEENT Head: Yes normocephalic Mouth: Normal oral and palatal mucosa present Eyes EOM: EOMs intact bilaterally Neck Neck: Yes supple Resp Auscultation: clear to auscultation bilaterally Cardio Jugular venous distension: no JVD Rate: regular rate GI Palpation (GI): Soft to palpation Auscultation: normal bowel sounds General: Yes no CVA tenderness Back/Spine/Pelvis Back: no CVA tenderness Skin General skin exam: no rashes or lesions noted Neuro General: patient oriented x3 and moves all extremities Extrem General: Yes no pedal edema Results Reviewed Nephrology Results: Hgb 12.1 g/dl (12.0-16.0) 12/03/23 WBC 6.4 X10*3/uL (4.8-10.8) 12/03/23 Plt Count 334 X10*3/uL (160-400) 12/03/23 Sodium 137 mmol/L (135-145) 05/01/24 Potassium 4.8 mmol/L (3.3-5.1) 05/01/24 Chloride 103 mmol/L (96-108) 05/01/24 Carbon Dioxide 28 mmol/L (22-29) 05/01/24 BUN 13 mg/dL (9-16) 05/01/24 Creatinine 0.96 mg/dL (0.5-1.4) 05/01/24 Calcium 9.6 mg/dL (8.4-10.2) 12/03/23 Assessment & Plan Assessment & Plan (1) Renal artery stenosis: Code(s): I70.1 - Atherosclerosis of renal artery Category: Medical (2) Essential hypertension: Code(s): I10 - Essential (primary) hypertension Category: Medical Plan Odette was found to be hypertensive and had been on multiple antihypertensive medications in the past. Investigations found her to have unilateral renal artery stenosis. Her blood pressure has been at goal. She has no signs of LVH or proteinuria. Her renal functions have been stable along with the serum potassium. She avoids nonsteroidal anti-inflammatories and takes only minimal salt. She maintains good hydration. I plan to order follow-up Doppler of her renal arteries with time. She is on statins. I did not make any medication changes today. All her and her mother's questions were answered. Follow-up given Orders: Orders Electrolytes 6 Months I10 - Essential (primary) hypertension, I70.1 - Atherosclerosis of renal artery Creatinine 6 Months I10 - Essential (primary) hypertension, I70.1 - Atherosclerosis of renal artery Blood Urea Nitrogen 6 Months I10 - Essential (primary) hypertension, I70.1 - Atherosclerosis of renal artery Calcium 6 Months I10 - Essential (primary) hypertension, I70.1 - Atherosclerosis of renal artery Coding Level of Care Code Est Pt Level 4 (53371) Diagnoses Renal artery stenosis I70.1 Essential hypertension I10
[2024-05-07 09:39] VITALS: BP 132/74; PULSE 88; O2SAT 96; BMI 27.7
== END 2024-05-07 09:51 | disposition home or self-care (01) ==
LOC: HO.HKA 09:29
PROVIDERS: PCP Internal Medicine; Visit Provider Internal Medicine Nephrology
DX: I70.1 Atherosclerosis of renal artery (principal); I10 Essential (primary) hypertension
CPT/HCPCS: 99214

== ENCOUNTER → 2024-05-07 09:29 | Outpatient (BNVA) | payer OTHER, SELFPAY | PROVIDERS: PCP Internal Medicine; Visit Provider Internal Medicine Nephrology | DX: I10 Essential (primary) hypertension (principal); I70.1 Atherosclerosis of renal artery | CPT/HCPCS: 99212 ==

== ENCOUNTER 2024-06-03 07:09 | Outpatient (REF) | payer OTHER, SELFPAY ==
[2024-06-03 11:58] LABS: Alanine Aminotransferase 27 U/L (0-31); Anion Gap 11 (12-20); Aspartate Amino Transferase 33 U/L (5-31); Blood Urea Nitrogen 15 mg/dL (9-16); Calcium 9.4 mg/dL (8.4-10.2); Carbon Dioxide 30 mmol/L (22-29); Chloride 104 mmol/L (96-108); Cholesterol 201 mg/dL (<200); Estimated Glomerular Filt Rate 52; Free T4 (Free Thyroxine) 1.14 ng/dL (0.71-1.85); Glucose Fasting 101 mg/dL (60-99); HDL Cholesterol 43 mg/dL (>40); LDL Cholesterol Calculated 107 mg/dL (<100); Potassium 4.5 mmol/L (3.3-5.1); Sodium 140 mmol/L (135-145); Thyroid Stimulating Hormone 0.44 uIU/mL (0.32-4.0); Triglycerides 255 mg/dL (<150); Vitamin D 25-OH Total 50.9 ng/mL (>30)
== END 2024-06-03 07:10 | disposition home or self-care (01) ==
LOC: HO.HMGCLDS 07:09
PROVIDERS: PCP Internal Medicine; Visit Provider Internal Medicine
DX: I10 Essential (primary) hypertension (principal); E78.5 Hyperlipidemia, unspecified; E03.9 Hypothyroidism, unspecified; Z86.39 Personal history of other endocrine, nutritional and metabolic disease
CPT/HCPCS: 36415; 80048; 80061; 82306; 84439; 84443; 84450; 84460

== ENCOUNTER 2024-06-03 11:56 | Outpatient (REF) | payer OTHER, SELFPAY | END 2024-06-03 11:57 | disposition home or self-care (01) | LOC: HO.HAP 11:56 | PROVIDERS: Visit Provider Internal Medicine | DX: Z46.1 Encounter for fitting and adjustment of hearing aid (principal); H90.3 Sensorineural hearing loss, bilateral | CPT/HCPCS: V5266 ==

== ENCOUNTER 2024-06-10 09:55 | Outpatient (AMB) | payer OTHER, SELFPAY ==
[2024-06-10 11:03] VITALS: BP 136/88; PULSE 85; O2SAT 93; BMI 28.0
--- NOTE | 2024-06-10 11:03 | A.OFFPC_ITS ---
Vital Signs 06/10/24 11:03 Height 4 ft 10 in Weight 134 lb BMI 28.0 BP 136/88 Blood Pressure Location Lt brachial Position Sitting Pulse 85 Pulse Source Pulse Oximeter Pulse Oximetry (%) 93 Oxygen Delivery Method Room Air Intake Visit Reasons: Annual PE- NEEDS PHQ9 Intake Note: Pt is here today for her PE: Last mammogram 04/09/24, papsmear 09/24/20, colonoscopy 09/05/22 Allergies No Known Allergies Allergy (Verified 06/10/24 11:05) Medication List - Last Reconciled 06/10/24 by Iliana Roa MD calcium carbonate (Calcium 600) 600 mg PO DAILY cholecalciferol (vitamin D3) 50 mcg PO DAILY estradiol 0.5 mg PO DAILY levothyroxine 75 mcg PO QAM 90 days lisinopril 10 mg PO DAILY lovastatin 40 mg PO BEDTIME omeprazole 20 mg PO .qod progesterone micronized 100 mg PO BEDTIME Tobacco use date assessed: 06/10/24 Dental Screening Dental Screen Date: 06/10/24 Did you have a dental visit in the last 12 months?: Yes Did you have a dental problem in the last 6 months where you did not have access to dental care?: No Was dental information given to patient?: Patient has dentist [facility] Medical History Meningioma Renal artery stenosis Hypersomnolence Snoring GERD (gastroesophageal reflux disease) Word finding problem Memory difficulties Heart murmur, systolic Essential hypertension Positive colorectal cancer screening using Cologuard test Panic attacks Basal cell carcinoma of right cheek Hyperlipidemia Irregular menses Acquired hypothyroidism Medulloblastoma Surgical History Hx of colonoscopy History of brain tumor Status post breast reduction Family History Father HTN (hypertension) Hyperlipidemia Mother HTN (hypertension) History of thyroid disorder Maternal Grandmother CHF (congestive heart failure) History of thyroid disorder Paternal Grandmother Breast cancer Melanoma Paternal Grandfather Cancer Diabetes mellitus Brother No problems noted. Sister No problems noted. Social History Housing: House Alcohol intake: never Patient Tobacco Use Status: Never used Tobacco e-Cigarette/Vaping Use: Never Used service: No Current occupational status: disabled Cognitive needs: No Hearing needs: No Vision needs: Yes (legally blind) Female Reproductive History Menstrual Date of last pap smear: 09/24/20 Date of Mammogram: 04/09/24 Other: sees [facility] in [place] , [place] ,[place] Questionnaire PHQ-9 Over the last 2 weeks, how often have you been bothered by any of the following problems? 1. Little interest or pleasure in doing things: not at all 2. Feeling down, depressed, or hopeless: not at all 3. Trouble falling or staying asleep, or sleeping too much: not at all 4. Feeling tired or having little energy: not at all 5. Poor appetite or overeating: not at all 6. Feeling bad about yourself - or that you are a failure or have let yourself or your family down: not at all 7. Trouble concentrating on things, such as reading the newspaper or watching television: not at all 8. Moving or speaking so slowly that other people could have noticed. Or the opposite - being so fidgety or restless that you have been moving around a lot more than usual: not at all 9. Thoughts that you would be better off or of hurting yourself in some way: not at all Total score: 0 Depression Screening Interpretation: Negative Depression Screening Done: Yes 59190 - PHQ-9 Billing: Yes Source: Developed by Drs. Denzel Lemons, Caryn Hardy, Donn Arango and colleagues, with an educational alanna from [employer]. Thrive Questionnaire Date Thrive assessed: 12/06/23 I am a: Patient What is your living situation today?: I have a steady place to live Within the past 12 months, did the food you bought not last and you didn't have the money to get more?: Never true Within the past 12 months, did you worry whether your food would run out before you got money to buy more?: Never true Do you have trouble paying for medicines?: No Do you have trouble getting transportation to medical appointments?: No Do you have trouble paying your heating and electricity bill?: No Do you have trouble taking care of your child, family member or friend?: No Do you have trouble with day-to-day activities such as bathing, preparing meals, shopping, managing finances, etc.?: No Are you currently unemployed and looking for a job?: No Are you interested in more education?: No Please select the resources that you would like help with: None Currently or been in a relationship where the following occur: No concerns reported THRIVE Score: 0 AUDIT C Alcohol Use Questionnaire (AUDIT-C) 1. How often do you have a drink containing alcohol?: Never Total Score: 0 EMILY-7 AMB Questionnaire EMILY-7 Date EMILY - 7 assessed: 06/10/24 Feeling nervous, anxious, or on edge: 0 = Not at all Not being able to stop or control worryin = Not at all Worrying too much about different things: 0 = Not at all Trouble relaxin = Not at all Being so restless that it is hard to sit still: 0 = Not at all Becoming easily annoyed or irritable: 0 = Not at all Feeling afraid as if something awful might happen: 0 = Not at all Total EMILY-7 score (0-4 normal; 5-9 mild; 10-14 moderate; 15-21 severe): 0 Source: Developed by Drs. Denzel Lemons, Caryn Hardy, Donn Arango and colleagues, with an educational alanna from [employer]. EMILY-7 Assessment Billing EMILY-7 Assessment Tool: EMILY-7 Assessment 35552 Physical exam (Primary Care) Vital Signs: Last Vital Signs Pulse 85 06/10/24 11:03 BP 136/88 06/10/24 11:03 Pulse Ox 93 06/10/24 11:03 Oxygen Delivery Method Room Air 06/10/24 11:03 BMI result Body Mass Index 28.0 Tobacco/Smoking Status: Tobacco use Status Tobacco use date assessed 06/10/24 06/10/24 11:06 Patient Tobacco Use Status Never used Tobacco 06/10/24 11:06 e-Cigarette/Vaping Use Never Used 06/10/24 11:06 PHQ-9: PHQ-9 Score PHQ-9: Total score 0 06/10/24 11:38 Depression Screening Interpretation: Negative Thrive Assessment: Date of Thrive Assessment Date Thrive assessed 12/06/23 06/10/24 11:06 Currently or been in a relationship where the following occur: No concerns reported Office Procedures Flu Questionnaire Does the patient have a severe egg allergy?: No Does the patient have severe life threatening allergies?: No Does the patient have a fever or illness today?: No Has the patient ever had Guillain-[place] Syndrome?: No Has the patient ever had any past reaction to a flu shot?: No Immunizations Fluarix Triv [id number] (PF) 45 mcg (15 mcg x 3)/0.5 mL IM syringe Performing Provider: Iliana Roa MD [place] [facility] [place] [facility] Administered by: Justine Degroot CMA on 06/10/24 11:40 Dose Route Admin Location Dispensed Lot Number Expiration Date [facility] Nutrition Technician 0.5 mL IM Left Deltoid 0.5 mL [id number] 12/29/24 [id number] [employer] VIS Given Date VIS Provided VIS Publication Date 06/10/24 Single Vaccine 21 Eligibility Eligibility Date Funding Source Not [facility] Eligible 06/10/24 Private Coding Level of Care Code Est Pt Prev Care 40-64y(19452) Diagnoses Essential hypertension I10 Hyperlipidemia E78.5 Irregular menses N92.6 Acquired hypothyroidism E03.9 Hx of adenomatous polyp of colon Z86.0101 Annual visit for general adult medical examination with abnormal findings Z00.01 Renal artery stenosis I70.1 Meningioma D32.9 Advanced directives, counseling/discussion Z71.89 Additional Codes EMILY-7 Assessment Billing - EMILY-7 Assessment Tool: EMILY-7 Assessment 22123 ([id number]) PHQ-9 - 03177 - PHQ-9 Billing: Yes ([id number]) Assessment & Plan Assessment & Plan (1) Essential hypertension: Code(s): I10 - Essential (primary) hypertension Category: Medical (2) Hyperlipidemia: Code(s): E78.5 - Hyperlipidemia, unspecified Category: Medical (3) Irregular menses: Comment: on OCP to regulate periods, ff'd at [facility] Code(s): N92.6 - Irregular menstruation, unspecified Category: Medical (4) Acquired hypothyroidism: Code(s): E03.9 - Hypothyroidism, unspecified Category: Medical (5) Hx of adenomatous polyp of colon: Code(s): Z86.0101 - Personal history of adenomatous and serrated colon polyps (6) Annual visit for general adult medical examination with abnormal findings: Code(s): Z00.01 - Encounter for general adult medical examination with abnormal findings (7) Renal artery stenosis: Code(s): I70.1 - Atherosclerosis of renal artery Category: Medical (8) Meningioma: Code(s): D32.9 - Benign neoplasm of meninges, unspecified Category: Medical (9) Advanced directives, counseling/discussion: Code(s): Z71.89 - Other specified counseling Orders: Orders Lipid Panel 10/30/24 E03.9 - Hypothyroidism, unspecified, E78.5 - Hype rlipidemia, unspecified Thyroid Stimulating Hormone 10/30/24 E03.9 - Hypothyroidism, unspecified, E78.5 - Hyperlipidemia, unspecified Free T4 (Free Thyroxine) 10/30/24 E03.9 - Hypothyroidism, unspecified, E78.5 - Hyperlipidemia, unspecified Influenza [id number] Immunization Today Z23 - Encounter for immunization Medications: New Fluarix Triv [id number] (PF) (flu vacc [id number] 6mos up(PF)) 0.5 mL IM ONCE 0.5 mL 0RF NS Z23 - Encounter for immunization
== END 2024-06-10 11:47 | disposition home or self-care (01) ==
PROVIDERS: PCP Internal Medicine; Visit Provider Internal Medicine
DX: Z23 Encounter for immunization (principal)

== ENCOUNTER → 2024-06-10 09:55 | Outpatient (BNVA) | payer OTHER, SELFPAY | PROVIDERS: PCP Internal Medicine; Visit Provider Internal Medicine | DX: Z00.01 Encounter for general adult medical examination with abnormal findings (principal); Z23 Encounter for immunization; I10 Essential (primary) hypertension; E78.2 Mixed hyperlipidemia; N92.6 Irregular menstruation, unspecified; E03.9 Hypothyroidism, unspecified; I70.1 Atherosclerosis of renal artery; D32.9 Benign neoplasm of meninges, unspecified; Z86.0101 Personal history of adenomatous and serrated colon polyps; Z71.89 Other specified counseling | CPT/HCPCS: 90471; 90656; 96127; 99396; 99497 ==

== ENCOUNTER 2024-09-18 13:47 | Outpatient (REF) | payer OTHER, SELFPAY ==
--- OUTSIDE RECORDS SUMMARY | 2024-09-18 16:27 | XMS_ITS | Clinical Summary ---
Author Organization [facility] Address [address] [place] [address] Phone Care Team Providers Care Applied Exercise Physiologist Name Role Phone Hernandez Roa MD Primary Care Provider [phone] Allergies No known active allergies Medications calcium carbonate (OS-ERICA) 600 MG tablet Take 600 mg by mouth 1 (one) time each day Active cholecalciferol (VITAMIN D-3 SUPER STRENGTH) 50 MCG (2000 UT) tablet Take 2,000 Units by mouth 1 (one) time each day Active LACTOBACILLUS RHAMNOSUS, GG, PO Take 1 tablet by mouth 1 (one) time each day Active levothyroxine (SYNTHROID, LEVOTHROID) 75 MCG tablet Take 75 mcg by mouth 1 (one) time each day Active lovastatin (MEVACOR) 40 MG tablet Take 40 mg by mouth every night Active omeprazole (PriLOSEC) [address] capsule Take 20 mg by mouth 1 (one) time each day Do not crush or chew. Active estradiol (ESTRACE) 0.5 MG tablet Take 0.5 mg by mouth 1 (one) time each day Active progesterone (ENDOMETRIN) 100 MG vaginal insert Insert 100 mg into the vagina in the morning and 100 mg in the evening. Active lisinopril 10 MG tablet Take 1 tablet (10 mg total) by mouth 1 (one) time each day Dose increased to 5 mg 90 tablet 3 3 Active Active Problems Problem Noted Date Diagnosed Date Hypertension 11/29/2022 Renal artery stenosis 11/29/2022 Essential (primary) hypertension 08/15/2022 Family History Medical History Relation Comments Hypertension Father Heart disease Maternal Grandmother Hypertension Mother Cancer Paternal Grandfather Diabetes Paternal Grandfather Cancer Paternal Grandmother Breast canc er/melanoma Relation Status Comments Father Maternal Grandmother Mother Paternal Grandfather Paternal Grandmother Social History Tobacco Use Types Packs/Day Years Used Date Smoking Tobacco: Never Smokeless Tobacco: Never Tobacco Cessation:Counseling Given: Not Answered Alcohol Use Standard Drinks/Week Comments Never 0 (1 standard drink = 0.6 oz pur e alcohol) Comments Unknown Sex and Gender Information Value Date Recorded Sex Assigned at Not on file Legal Sex Female 8:17 AM EDT Gender Identity Not on file Sexual Orientation Not on file Last Filed Vital Signs Vital Sign Reading Time Taken Comments Blood Pressure 119/65 03/28/2023 1:59 PM EDT Pulse 95 03/28/2023 1:59 PM EDT Temperature - - Respiratory Rate - - Oxygen Saturation 99% 03/28/2023 1:59 PM EDT Inhaled Oxygen Concentration - - Weight 60.8 kg (134 lb) 03/28/2023 1:59 PM EDT Height - - Body Mass Index - - Plan of Treatment Health Maintenance Due Date Last Done Comments Pneumococcal Vaccine: Pediat rics (0 to 5 Years) and At-Risk Patients (6 to 64 Years) (1 of 2 - PCV) 08/31/1981 Hepatitis B Vaccine (1 of 3 - 19+ 3-dose series) 08/31 Influenza Vaccine (#1) 2024 Colorectal Cancer Screening: Annual FOBT 08/31/2024 Colorectal Cancer Screening: Colonoscopy 08/31/2024 Colorectal Cancer Screening: Sigmoidoscopy 08/31/2024 Insurance [facility] [place] [address] Care Teams Applied Exercise Physiologist Relationship Specialty Start Date End Date Hernandez Roa MD [address] [place], [place] [id number] PCP - General Internal Medicine 05/04/22
== END 2024-09-18 13:48 | disposition home or self-care (01) ==
LOC: HO.HAP 13:47
PROVIDERS: Visit Provider Internal Medicine
DX: Z46.1 Encounter for fitting and adjustment of hearing aid (principal); H90.3 Sensorineural hearing loss, bilateral
CPT/HCPCS: 92593; 99499; V5266

== ENCOUNTER 2024-10-08 06:30 | Outpatient (REF) | payer OTHER, SELFPAY ==
--- OUTSIDE RECORDS SUMMARY | 2024-10-08 06:32 | XMS_ITS | Clinical Summary ---
Author Organization [facility] Address [address] [place] [address] Phone Care Team Providers Care Colorer Name Role Phone Hernandez Roa MD Primary Care Provider [phone]- [phone] Allergies No known active allergies Medications calcium [...] of 3 - 19+ 3-dose series) 08/31 Colorectal Cancer Screening: Annual FOBT 08/31/2024 Colorectal Cancer Screening: Colonoscopy 08/31/2024 Colorectal Cancer Screening: Sigmoidoscopy 08/31/2024 Influenza Vaccine (Season Ended) 2025 Insurance [facility] Care Teams Colorer Relationship Specialty Start Date End Date Hernandez Roa MD [address] [place], [place] [id number] PCP - General Internal Medicine 05/04/22
[2024-10-08 11:21] LABS: Cholesterol 176 mg/dL (<200); HDL Cholesterol 38 mg/dL (>40); LDL Cholesterol Calculated 86 mg/dL (<100); Triglycerides 260 mg/dL (<150)
[2024-10-08 11:43] LABS: Folate 5.6 ng/mL (> or = 4.0); Thyroid Stimulating Hormone 1.19 uIU/mL (0.32-4.0); Vitamin B12 195 pg/mL (200-900); Vitamin D 25-OH Total 52.5 ng/mL (>30)
== END 2024-10-08 06:31 | disposition home or self-care (01) ==
LOC: HO.HMGCLDS 06:30
PROVIDERS: PCP Internal Medicine; Visit Provider Internal Medicine
DX: E78.5 Hyperlipidemia, unspecified (principal); E03.9 Hypothyroidism, unspecified; R41.3 Other amnesia; R53.83 Other fatigue
CPT/HCPCS: 36415; 80061; 82306; 82607; 82746; 84439; 84443

== ENCOUNTER 2024-10-15 13:20 | Outpatient (AMB) | payer OTHER, SELFPAY ==
--- NOTE | 2024-10-15 14:11 | MHC.PC.OV ---
Vital Signs 10/15/24 14:12 Height 4 ft 10 in Weight 135 lb BMI 28.2 BP 146/80 H Blood Pressure Location Lt brachial Position Sitting Respiration 16 Pulse 71 Pulse Source Pulse Oximeter Temp 98.2 F Temp Source Oral Pulse Oximetry (%) 97 Oxygen Delivery Method Room Air Intake Visit Reasons: ?mental status changes/early dementia Intake Note: Pt is here today to discuss mental status changes Allergies No Known Allergies Allergy (Verified 06/10/24 11:05) Medication List - Last Reconciled 10/19/24 by Iliana Roa MD calcium carbonate (Calcium 600) 600 mg PO DAILY cholecalciferol (vitamin D3) 50 mcg PO DAILY estradiol 0.5 mg PO DAILY levothyroxine 75 mcg PO QAM 90 days lisinopril 10 mg PO DAILY lovastatin 40 mg PO BEDTIME omeprazole 20 mg PO DAILY PRN progesterone micronized 100 mg PO BEDTIME Tobacco use date assessed: 10/15/24 Dental Screening Dental Screen Date: 10/15/24 Did you have a dental visit in the last 12 months?: Yes Did you have a dental problem in the last 6 months where you did not have access to dental care?: No Was dental information given to patient?: Patient has dentist HPI ?mental status changes/early dementia HPI Details 49 year-old lady with history of hypertension, renal artery stenosis, hyperlipidemia and acquired hypothyroidism, here today accompanied by sister and mother, who states that she patient has been more confused lately, and has been feeling more tired than usual. She had recent fasting labs done which showed elevated triglycerides but normal LDL cholesterol, normal thyroid levels and low vitamin B12 level at 195 mg/dL [facility] Medical History (Updated 10/15/24 @ 14:50 by Iliana Roa MD) Vitamin B12 deficiency Meningioma Renal artery stenosis Hypersomnolence Snoring GERD (gastroesophageal reflux disease) Word finding problem Memory difficulties Heart murmur, systolic Essential hypertension Positive colorectal cancer screening using Cologuard test Panic attacks Basal cell carcinoma of right cheek Hyperlipidemia Irregular menses Acquired hypothyroidism Medulloblastoma Surgical History Hx of colonoscopy History of brain tumor Status post breast reduction Family History Father HTN (hypertension) Hyperlipidemia Mother HTN (hypertension) History of thyroid disorder Maternal Grandmother CHF (congestive heart failure) History of thyroid disorder Paternal Grandmother Breast cancer Melanoma Paternal Grandfather Cancer Diabetes mellitus Brother No problems noted. Sister No problems noted. Social History Housing: House Alcohol intake: never Patient Tobacco Use Status: Never used Tobacco e-Cigarette/Vaping Use: Never Used service: No Current occupational status: disabled Cognitive needs: No Hearing needs: No Vision needs: Yes (legally blind) Questionnaire PHQ-9 Over the last 2 weeks, how often have you been bothered by any of the following problems? 1. Little interest or pleasure in doing things: not at all 2. Feeling down, depressed, or hopeless: not at all 3. Trouble falling or staying asleep, or sleeping too much: several days 4. Feeling tired or having little energy: not at all 5. Poor appetite or overeating: not at all 6. Feeling bad about yourself - or that you are a failure or have let yourself or your family down: not at all 7. Trouble concentrating on things, such as reading the newspaper or watching television: not at all 8. Moving or speaking so slowly that other people could have noticed. Or the opposite - being so fidgety or restless that you have been moving around a lot more than usual: several days 9. Thoughts that you would be better off or of hurting yourself in some way: not at all Total score: 2 Depression Screening Interpretation: Negative Depression Screening Done: Yes 44193 - PHQ-9 Billing: Yes Source: Developed by Drs. Denzel Lemons, Caryn Hardy, Donn Arango and colleagues, with an educational alanna from [employer]. Thrive Questionnaire Date Thrive assessed: 12/06/23 I am a: Patient What is your living situation today?: I have a steady place to live Within the past 12 months, did the food you bought not last and you didn't have the money to get more?: Never true Within the past 12 months, did you worry whether your food would run out before you got money to buy more?: Never true Do you have trouble paying for medicines?: No Do you have trouble getting transportation to medical appointments?: No Do you have trouble paying your heating and electricity bill?: No Do you have trouble taking care of your child, family member or friend?: No Do you have trouble with day-to-day activities such as bathing, preparing meals, shopping, managing finances, etc.?: No Are you currently unemployed and looking for a job?: No Are you interested in more education?: No Please select the resources that you would like help with: None Currently or been in a relationship where the following occur: No concerns reported THRIVE Score: 0 AUDIT C Alcohol Use Questionnaire (AUDIT-C) 1. How often do you have a drink containing alcohol?: Never Total Score: 0 EMILY-7 AMB Questionnaire EMILY-7 Date EMILY - 7 assessed: 06/10/24 Feeling nervous, anxious, or on edge: 0 = Not at all Not being able to stop or control worryin = Not at all Worrying too much about different things: 0 = Not at all Trouble relaxin = Not at all Being so restless that it is hard to sit still: 0 = Not at all Becoming easily annoyed or irritable: 1 = Several days Feeling afraid as if something awful might happen: 0 = Not at all Total EMILY-7 score (0-4 normal; 5-9 mild; 10-14 moderate; 15-21 severe): 1 Source: Developed by Drs. Denzel Lemons, Caryn Hardy, Donn Arango and colleagues, with an educational alanna from [employer]. Review of Systems Const All systems reviewed & are unremarkable except as noted in HPI and below Physical exam (Primary Care) Vital Signs: Last Vital Signs Temp 98.2 F 10/15/24 14:12 Pulse 71 10/15/24 14:12 Resp 16 10/15/24 14:12 BP 146/80 H 10/15/24 14:12 Pulse Ox 97 10/15/24 14:12 Oxygen Delivery Method Room Air 10/15/24 14:12 BMI result Body Mass Index 28.2 Tobacco/Smoking Status: Tobacco use Status Tobacco use date assessed 10/15/24 10/15/24 14:16 Patient Tobacco Use Status Never used Tobacco 10/15/24 14:16 e-Cigarette/Vaping Use Never Used 10/15/24 14:16 PHQ-9: PHQ-9 Score PHQ-9: Total score 2 10/15/24 14:27 Depression Screening Interpretation: Negative Thrive Assessment: Date of Thrive Assessment Date Thrive assessed 12/06/23 10/15/24 14:16 Currently or been in a relationship where the following occur: No concerns reported Const Other: Alert oriented x3, ambulatory with a walking stick, no acute cardiorespiratory distress noted, Sister and mother accompanying her on this visit Orientation/consciousness: patient oriented x3 HENMT Mouth: Normal oral and palatal mucosa present and moist mucous membranes Neck Other: Supple, no lymphadenopathy, thyroid gland nonpalpable and nontender to palpation Resp Effort & Inspection: normal respiratory effort and able to speak in complete sentences Auscultation: clear to auscultation bilaterally Cardio Other: S1-S2 present regular rate and rhythm , systolic murmur at left sternal border GI Palpation (GI): Soft to palpation, nontender, no guarding and no masses General: Yes no CVA tenderness Back/Spine/Pelvis Back: no CVA tenderness and No back tenderness Skin General skin exam: no rashes or lesions noted Neuro General: patient oriented x3, tone normal, moves all extremities, Normal light touch and pain sensation, no focal motor deficits and CN's II-XI intact bilaterally Gait exam (Neuro): Normal gait present and Assisted gait required Gait assisted method: walking stick Extrem General: Yes full ROM, Yes no joint enlargement, Yes no pedal edema and Yes no calf tenderness Psych Appearance: grossly normal and well kempt Mental Status: mental status grossly normal Speech and movement: Normal speech and movement present Affect: normal affect Thought process: Normal thought process present Thought content: Normal thought content present Results Reviewed Results Reviewed: Name: Odette Reilly Age/Sex: 49/F : 1975 Unit#: [id number] Attend Dr: Iliana Rao MD Re10/08/24 Status: DEP [facility] Disch: SPEC : [id number] PASTOR: 10/08/24 STATUS: COMP REQ : [id number] RECD: 10/08/[address]: Iliana Roa MD COMP: 10/08/24 ENTERED: 10/08/[address] [facility] [address]: ORDERED: Lipid Panel, Vitamin D 25-OH, Free T4, TSH Test Result Flag Reference Triglyceride 260 H <150 mg/dL Desirable Triglyceride: less than 150 mg/dL Borderline High Triglyceride 150-199 mg/dL High Triglyceride: 200-499 mg/dL Very High Triglyceride: greater than or equal to 5OO mg/dL Cholesterol 176 <200 mg/dL Desirable Cholesterol: less than 200 mg/dL Borderline High Cholesterol: 200-239 mg/dL High Cholesterol: greater than 239 mg/dL LDL Calculated 86 <100 mg/dL Desirable LDL: less than 100 mg/dL Near Optimal/Above Optimal LDL: 110-129 mg/dL Borderline High LDL: 130-159 mg/dL High LDL: 160-189 mg/dL Very High LDL: greater than or equal to 190 mg/dL HDL 38 L >40 mg/dL Desirable HDL: greater than 40 mg/dL Note: This HDL assay may give artificially low results in patients with liver disease. Vitamin D 25-OH 52.5 >30 ng/mL Health Based Reference Values* < 20 ng/mL Deficient 20-30 ng/mL Insufficient > 30 ng/mL Sufficient *Leobardo HERNDON. N Engl J Med. 2007;357:266-280 There is no well-established upper level of normal vitamin D levels. Some laboratories use 50 ng/mL as an upper limit of normal. However, toxicity is patient-dependent and may occur at any level. Careful correlation with the patient's presentation is necessary and, if there is concern for vitamin D toxicity, treatment should be considered irrespective of the serum level. Care must be taken in interpreting Vitamin D results from different laboratories and methodologies. Published data demonstrated that results from patients undergoing hemodialysis may show a negative bias when tested with various automated 25-OH vitamin D assays when compared to LC-MS/MS. When testing samples from patients whose predominant form of Vitamin D is Vitamin D2, such as patients receiving Vitamin D2 supplementation, results that are subtherapeutic should be confirmed with another method such as LC-MS/MS. Free T4 1.10 0.71-1.85 ng/dL TSH 3rd Gen. 1.19 0.32-4.0 uIU/mL TSH 3rd Generation ([facility]) Laboratory Tests 10/08/24 06:45 Vitamin B12 195 L Coding Level of Care Code Est Pt Level 4 (90074) Diagnoses Vitamin B12 deficiency E53.8 Additional Codes PHQ-9 - 07498 - PHQ-9 Billing: Yes ([id number]) Assessment & Plan Assessment & Plan (1) Vitamin B12 deficiency: Code(s): E53.8 - Deficiency of other specified B group vitamins Category: Medical Plan: Episodes of confusion likely due to low vitamin B12 levels, patient would like to try taking jmix-[id number]-tjinoca vitamin B12 supplements at least 1000 units daily instead of starting injections and will repeat another vitamin B12 and folic acid level in a month. In the meantime advised to eat a diet rich in vitamin B12 which includes meat products. Orders: Orders Vitamin B12 and Folate 1 Month E53.8 - Deficiency of other specified B group vitamins
[2024-10-15 14:12] VITALS: BP 146/80; PULSE 71; RESP 16; TEMP 36.8; O2SAT 97; BMI 28.2
--- OUTSIDE RECORDS SUMMARY | 2024-10-15 15:51 | XMS_ITS | Clinical Summary ---
Author Organization [facility] Address [address] [place] [address] Phone Care Team Providers Care Pattern Storage Clerk Name Role Phone Hernandez Roa MD Primary Care Provider +1- [phone] Allergies No known active allergies Medications calcium [...] Health Maintenance Due Date Last Done Comments Hepatitis B Vaccine (1 of 3 - 19+ 3-dose series) 08/31 Pneumococcal Vaccine: Peds ( 0 to 5 Years) and At-Risk Patients (6 to 49 Years) (1 of 2 - PCV) 08/31/1994 Colorectal Cancer Screening: Annual FOBT 08/31/2024 Colorectal Cancer Screening: Colonoscopy 08/31/2024 Colorectal Cancer Screening: Sigmoidoscopy 08/31/2024 Influenza Vaccine (Season Ended) 2025 Insurance [facility] [employer] [facility] [employer] Care Teams Pattern Storage Clerk Relationship Specialty Start Date End Date Hernandez Roa MD [facility] [place] [address] PCP - General Internal Medicine 05/04/22
== END 2024-10-15 15:00 | disposition home or self-care (01) ==
LOC: HO.HMCC 13:21
PROVIDERS: PCP Internal Medicine; Visit Provider Internal Medicine
DX: E53.8 Deficiency of other specified B group vitamins (principal)

== ENCOUNTER → 2024-10-15 13:20 | Outpatient (BNVA) | payer OTHER, SELFPAY | PROVIDERS: PCP Internal Medicine; Visit Provider Internal Medicine | DX: E53.8 Deficiency of other specified B group vitamins (principal); I10 Essential (primary) hypertension; I70.1 Atherosclerosis of renal artery; E78.5 Hyperlipidemia, unspecified; E03.9 Hypothyroidism, unspecified | CPT/HCPCS: 96127; 99212 ==

== ENCOUNTER 2024-11-12 09:06 | Outpatient (REF) | payer OTHER, SELFPAY ==
--- OUTSIDE RECORDS SUMMARY | 2024-11-12 09:31 | XMS_ITS | Clinical Summary ---
Author Organization [facility] Address [address] [place] [address] Phone Care Team Providers Care Couture Dressmaker Name Role Phone Hernandez Roa MD Primary Care Provider +1- [phone] Allergies No known active allergies Medications calcium [...] 08/31/2024 Influenza Vaccine (Season Ended) 2025 Insurance [facility] [employer] [facility] [place] [address] Care Teams Couture Dressmaker Relationship Specialty Start Date End Date Hernandez Roa MD [facility] [place] [address] PCP - General Internal Medicine 05/04/22
[2024-11-12 11:04] LABS: Folate 6.2 ng/mL (> or = 4.0); Vitamin B12 504 pg/mL (200-900)
== END 2024-11-12 09:07 | disposition home or self-care (01) ==
LOC: HO.HMGCLDS 09:06
PROVIDERS: PCP Internal Medicine; Visit Provider Internal Medicine
DX: E53.8 Deficiency of other specified B group vitamins (principal)
CPT/HCPCS: 36415; 82607; 82746

== ENCOUNTER 2024-11-19 08:41 | Outpatient (REF) | payer OTHER, SELFPAY ==
--- OUTSIDE RECORDS SUMMARY | 2024-11-19 09:58 | XMS_ITS | Clinical Summary ---
Author Organization [facility] Address [address] [place] [address] Phone Care Team Providers Care Gaming Commissioner Name Role Phone Hernandez Roa MD Primary Care Provider +1- [phone] Allergies No known active allergies Medications calcium [...] 08/31/2024 Influenza Vaccine (Season Ended) 2025 Insurance [facility] [employer] [facility] [employer] Care Teams Gaming Commissioner Relationship Specialty Start Date End Date Hernandez Roa MD [facility] [place] [address] PCP - General Internal Medicine 05/04/22
[2024-11-19 11:37] LABS: Anion Gap 13 (12-20); Blood Urea Nitrogen 21 mg/dL (9-16); Calcium 9.4 mg/dL (8.4-10.2); Carbon Dioxide 26 mmol/L (22-29); Chloride 104 mmol/L (96-108); Estimated Glomerular Filt Rate 46; Sodium 139 mmol/L (135-145)
== END 2024-11-19 08:42 | disposition home or self-care (01) ==
LOC: HO.HMGCLDS 08:41
PROVIDERS: PCP Internal Medicine; Visit Provider Internal Medicine Nephrology
DX: I70.1 Atherosclerosis of renal artery (principal); I10 Essential (primary) hypertension
CPT/HCPCS: 36415; 80051; 82310; 82565; 84520

== ENCOUNTER 2024-11-21 11:42 | Outpatient (AMB) | payer OTHER, SELFPAY ==
--- NOTE | 2024-11-21 11:38 | A.OFFPC_ITS ---
Intake Visit Reasons: 4 weeks f/up-telehealth Intake Note: Pt is having a telehealth visit to discuss recent lab results Allergies No Known Allergies Allergy (Verified 11/21/24 11:51) Medication List - Last Reconciled 11/21/24 by Iliana Roa MD calcium carbonate (Calcium 600) 600 mg PO DAILY cholecalciferol (vitamin D3) 50 mcg PO DAILY estradiol 0.5 mg PO DAILY levothyroxine 75 mcg PO QAM 90 days lisinopril 10 mg PO DAILY lovastatin 40 mg PO BEDTIME omeprazole 20 mg PO DAILY PRN progesterone micronized 100 mg PO BEDTIME Tobacco use date assessed: 11/21/24 Dental Screening Dental Screen Date: 11/21/24 Did you have a dental visit in the last 12 months?: Yes Did you have a dental problem in the last 6 months where you did not have access to dental care?: No Was dental information given to patient?: Patient has dentist HPI 4 weeks f/up-telehealth HPI Details 49-year-old lady with history of hypothy roidism, here today for follow- up . She was complaining of feeling tired, no energy on last visit. Vitamin B12 was noted to be very low at that time, has started taking oral vitamin B12 supplement, with recent labs showing vitamin B12 now within normal limits. Patient's mother also states that patient has been more active and less tired as compared to last visit. [facility] Medical History (Updated 11/22/24 @ 01:06 by Iliana Roa MD) History of non anemic vitamin B12 deficiency Vitamin B12 deficiency Meningioma Renal artery stenosis Hypersomnolence Snoring GERD (gastroesophageal reflux disease) Word finding problem Memory difficulties Heart murmur, systolic Essential hypertension Positive colorectal cancer screening using Cologuard test Panic attacks Basal cell carcinoma of right cheek Hyperlipidemia Irregular menses Acquired hypothyroidism Medulloblastoma Surgical History Hx of colonoscopy History of brain tumor Status post breast reduction Family History Father HTN (hypertension) Hyperlipidemia Mother HTN (hypertension) History of thyroid disorder Maternal Grandmother CHF (congestive heart failure) History of thyroid disorder Paternal Grandmother Breast cancer Melanoma Paternal Grandfather Cancer Diabetes mellitus Brother No problems noted. Sister No problems noted. Social History Housing: House Alcohol intake: never Patient Tobacco Use Status: Never used Tobacco e-Cigarette/Vaping Use: Never Used service: No Current occupational status: disabled Cognitive needs: No Hearing needs: No Vision needs: Yes (legally blind) Questionnaire PHQ-9 Over the last 2 weeks, how often have you been bothered by any of the following problems? 1. Little interest or pleasure in doing things: not at all 2. Feeling down, depressed, or hopeless: not at all 3. Trouble falling or staying asleep, or sleeping too much: not at all 4. Feeling tired or having little energy: not at all 5. Poor appetite or overeating: not at all 6. Feeling bad about yourself - or that you are a failure or have let yourself or your family down: not at all 7. Trouble concentrating on things, such as reading the newspaper or watching television: not at all 8. Moving or speaking so slowly that other people could have noticed. Or the opposite - being so fidgety or restless that you have been moving around a lot more than usual: not at all 9. Thoughts that you would be better off or of hurting yourself in some way: not at all Total score: 0 Depression Screening Interpretation: Negative Depression Screening Done: Yes 09226 - PHQ-9 Billing: Yes Source: Developed by Drs. Denzel Lemons, Caryn Hardy, Donn Arango and colleagues, with an educational alanna from [employer]. Thrive Questionnaire Date Thrive assessed: 11/21/24 I am a: Patient What is your living situation today?: I have a steady place to live Within the past 12 months, did the food you bought not last and you didn't have the money to get more?: Never true Within the past 12 months, did you worry whether your food would run out before you got money to buy more?: Never true Do you have trouble paying for medicines?: No Do you have trouble getting transportation to medical appointments?: No Do you have trouble paying your heating and electricity bill?: No Do you have trouble taking care of your child, family member or friend?: No Do you have trouble with day-to-day activities such as bathing, preparing meals, shopping, managing finances, etc.?: No Are you currently unemployed and looking for a job?: No Are you interested in more education?: No THRIVE Score: 0 AUDIT C Alcohol Use Questionnaire (AUDIT-C) 1. How often do you have a drink containing alcohol?: Never Total Score: 0 EMILY-7 AMB Questionnaire EMILY-7 Date EMILY - 7 assessed: 11/21/24 Feeling nervous, anxious, or on edge: 0 = Not at all Not being able to stop or control worryin = Not at all Worrying too much about different things: 0 = Not at all Trouble relaxin = Not at all Being so restless that it is hard to sit still: 0 = Not at all Becoming easily annoyed or irritable: 0 = Not at all Feeling afraid as if something awful might happen: 0 = Not at all Total EMILY-7 score (0-4 normal; 5-9 mild; 10-14 moderate; 15-21 severe): 0 Source: Developed by Drs. Denzel Lemons, Caryn Hardy, Donn Arango and colleagues, with an educational alanna from [employer]. EMILY-7 Assessment Billing EMILY-7 Assessment Tool: EMILY-7 Assessment 30268 Review of Systems Const Denies body aches, Denies fatigue and Denies fever(s) Eyes Details: blindness Reports no additional complaints ENT Denies dizziness, Denies nasal congestion, Denies nasal discharge, Denies disequilibrium, Denies post nasal drip and Denies sore throat Card Denies chest pain, Denies lightheadedness, Denies palpitations and Denies dyspnea Resp Denies chest congestion, Denies cough, Denies dyspnea and Denies wheezing GI Denies abdominal pain, Denies change in bowel habits and Reports heartburn ( intermittent, takes omeprazole every other day) Denies urinary frequency, Denies dysuria and Denies urinary urgency Musc Denies back pain, Denies myalgias, Denies arthralgias, Denies joint swelling and Denies stiffness Skin/Breast Denies lesions and Denies rash Neuro Denies dizziness and Denies disequilibrium Psych Reports no additional complaints Endo Denies fatigue, Denies polydipsia, Denies polyuria and Denies palpitations Bimal/Lymph Reports no additional complaints Aller/Immun Denies seasonal rhinorrhea and Denies wheezing Physical exam (Primary Care) Tobacco/Smoking Status: Tobacco use Status Tobacco use date assessed 11/21/24 11/21/24 11:39 Patient Tobacco Use Status Never used Tobacco 11/21/24 11:39 e-Cigarette/Vaping Use Never Used 11/21/24 11:39 PHQ-9: PHQ-9 Score PHQ-9: Total score 0 11/21/24 11:52 Depression Screening Interpretation: Negative Thrive Assessment: Date of Thrive Assessment Date Thrive assessed 11/21/24 11/21/24 11:41 Telehealth Telehealth Telehealth Platform: [employer] Location of provider rendering services: practice address Location of patient: address on file Patient Identification confirmed using: Name, : Yes Telehealth method: video Patient verbally consented to treatment: Yes Patient verbally consented to billing insurance company: Yes Patient informed of any privacy concerns related to visit: Yes Minutes spent on Phone/Video with Pt.: 15 Results Reviewed Results Reviewed: Name: Odette Reilly Age/Sex: 49/F : 1975 Unit#: [id number] Attend Dr: Ld Britton MD Re11/19/24 Status: DEP REF Location: [facility] Disch: SPEC : [id number] PASTOR: 11/19/24 STATUS: COMP REQ : [id number] RECD: 11/19/[address]: Ld Britton MD COMP: 11/19/24 ENTERED: 11/19/[address]: Iliana Roa MD ORDERED: Lytes, BUN, Creat, CA Test Result Flag Reference Sodium 139 135-145 mmol/L Potassium 4.0 3.3-5.1 mmol/L CL 104 96-108 mmol/L CO2 26 22-29 mmol/L Gap 13 12-20 BUN 21 H 9-16 mg/dL Creat 1.25 0.5-1.4 mg/dL eGFR 46 Chronic Kidney Disease: Estimated GFR < 60 mL/min/1.73m2 Severe Kidney Disease: Estimated GFR < 15 mL/min /1.73m2 CA 9.4 8.4-10.2 mg/dL Laboratory Tests 11/12/24 09:10 Vitamin B12 504 Folate 6.2 Coding Level of Care Code Tele Est Pt Level 3 (02409) Diagnoses History of non anemic vitamin B12 deficiency Z86.39 Acquired hypothyroidism E03.9 Additional Codes PHQ-9 - 93161 - PHQ-9 Billing: Yes ([id number]) EMILY-7 Assessment Billing - EMILY-7 Assessment Tool: EMILY-7 Assessment 82261 ([id number]) Assessment & Plan Assessment & Plan (1) History of non anemic vitamin B12 deficiency: Code(s): Z86.39 - Personal history of other endocrine, nutritional and metabolic disease Category: Medical Plan: Continue taking oral vitamin B12 supplements. Reinforced importance of incorporating food products that are rich in vitamin B12 in her diet. (2) Acquired hypothyroidism: Code(s): E03.9 - Hypothyroidism, unspecified Category: Medical Plan: Currently a levothyroxine 75 mcg taken once a day in a.m., refill sent Medications: Refilled levothyroxine 75 mcg PO QAM 90 tabs 4RF 90 days E03.9 - Hypothyroidism, unspecified
--- OUTSIDE RECORDS SUMMARY | 2024-11-21 11:43 | XMS_ITS | Clinical Summary ---
Author Organization [facility] Address [address] [place] [address] Phone Care Team Providers Care Physician Practice Market Manager Name Role Phone Hernandez Roa MD Primary Care Provider +1- [phone] Allergies No known active allergies Medications calcium [...] 08/31/2024 Influenza Vaccine (Season Ended) 2025 Insurance [facility] [employer] [facility] [employer] Care Teams Physician Practice Market Manager Relationship Specialty Start Date End Date Hernandez Roa MD [facility] [place] [address] PCP - General Internal Medicine 05/04/22
== END 2024-11-21 12:34 | disposition home or self-care (01) ==
LOC: HO.HMCC 11:42
PROVIDERS: PCP Internal Medicine; Visit Provider Internal Medicine
DX: E03.9 Hypothyroidism, unspecified (principal); Z86.39 Personal history of other endocrine, nutritional and metabolic disease

== ENCOUNTER → 2024-11-21 11:42 | Outpatient (BNVA) | payer OTHER, SELFPAY | PROVIDERS: PCP Internal Medicine; Visit Provider Internal Medicine | DX: E03.9 Hypothyroidism, unspecified (principal); Z86.39 Personal history of other endocrine, nutritional and metabolic disease; Z79.899 Other long term (current) drug therapy; Z13.30 Encounter for screening examination for mental health and behavioral disorders, unspecified | CPT/HCPCS: 96127 ==

== ENCOUNTER 2024-11-26 12:07 | Outpatient (AMB) | payer OTHER, SELFPAY ==
[2024-11-26 12:19] VITALS: BP 130/80; PULSE 86; O2SAT 97; BMI 29.0
--- NOTE | 2024-11-26 12:19 | HO.NEPHOV ---
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 She had been on multiple antihypertensive medications in the past. Her amlodipine was discontinued and her lisinopril was increased to 10 mg with good blood pressure control. She has not had any Doppler of her renal arteries recently for follow-up. She denies headache, chest pain, nausea, vomiting, shortness of breath, proximal nocturnal dyspnea, orthopnea, pedal edema or urinary symptoms. She does not take excess sodium in the diet. She is compliant with her medications. She avoids nonsteroidal anti-inflammatories. She is on statins. She was accompanied by her mother during this visit. She is blind. She denied any active complaints at the time of this office visit [facility] Medical History (Updated 11/26/24 @ 16:49 by Iliana Roa MD) Evaluation of hearing impairment History of non anemic vitamin B12 deficiency Vitamin B12 deficiency Meningioma Renal artery stenosis Hypersomnolence Snoring GERD (gastroesophageal reflux disease) Word finding problem Memory difficulties Heart murmur, systolic Essential hypertension Positive colorectal cancer screening using Cologuard test Panic attacks Basal cell carcinoma of right cheek Hyperlipidemia Irregular menses Acquired hypothyroidism Medulloblastoma Surgical History Hx of colonoscopy History of brain tumor Status post breast reduction Family History Father HTN (hypertension) Hyperlipidemia Mother HTN (hypertension) History of thyroid disorder Maternal Grandmother CHF (congestive heart failure) History of thyroid disorder Paternal Grandmother Breast cancer Melanoma Paternal Grandfather Cancer Diabetes mellitus Brother No problems noted. Sister No problems noted. Social History Housing: House Alcohol intake: never Patient Tobacco Use Status: Never used Tobacco e-Cigarette/Vaping Use: Never Used service: No Current occupational status: disabled Cognitive needs: No Hearing needs: No Vision needs: Yes (legally blind) Review of Systems Const All systems reviewed & are unremarkable except as noted in HPI and below Physical Exam Vital Signs: Last Vital Signs Pulse 86 11/26/24 12:19 BP 130/80 11/26/24 12:19 Pulse Ox 97 11/26/24 12:19 Oxygen Delivery Method Room Air 11/26/24 12:19 BMI result Body Mass Index 29.0 Const General: comfortable and no acute distress Orientation/consciousness: patient oriented x3 HEENT Head: Yes normocephalic Mouth: Normal oral and palatal mucosa present Neck Neck: Yes supple Resp Auscultation: clear to auscultation bilaterally Cardio Jugular venous distension: no JVD Rate: regular rate GI Palpation (GI): Soft to palpation Auscultation: normal bowel sounds General: Yes no CVA tenderness Back/Spine/Pelvis Back: no CVA tenderness Skin General skin exam: no rashes or lesions noted Neuro General: patient oriented x3 and moves all extremities Extrem General: Yes no pedal edema Results Reviewed Nephrology Results: Sodium 139 mmol/L (135-145) 11/19/24 Potassium 4.0 mmol/L (3.3-5.1) 11/19/24 Chloride 104 mmol/L (96-108) 11/19/24 Carbon Dioxide 26 mmol/L (22-29) 11/19/24 BUN 21 mg/dL (9-16) H 11/19/24 Creatinine 1.25 mg/dL (0.5-1.4) 11/19/24 Calcium 9.4 mg/dL (8.4-10.2) 11/19/24 Assessment & Plan Assessment & Plan (1) Essential hypertension: Code(s): I10 - Essential (primary) hypertension Category: Medical (2) Renal artery stenosis: Code(s): I70.1 - Atherosclerosis of renal artery Category: Medical Plan Odette was found to be hypertensive and had been on multiple antihypertensive medications in the past. Investigations found her to have unilateral renal artery stenosis. Her blood pressure has been at goal. She has no signs of LVH or proteinuria. Her renal functions have been stable( serum creatinine marginally up) along with the serum potassium. She avoids nonsteroidal anti-inflammatories and takes only minimal salt. She maintains good hydration. I plan to order follow-up Doppler of her renal arteries with time. She is on statins. I did not make any medication changes today but shall back off on ACEI if her serum creatinine rises. All her and her mother's questions were answered. Follow-up given Orders: Orders Blood Urea Nitrogen 6 Months I10 - Essential (primary) hypertension, I70.1 - Atherosclerosis of renal artery Electrolytes 6 Months I10 - Essential (primary) hypertension, I70.1 - Atherosclerosis of renal artery Creatinine 6 Months I10 - Essential (primary) hypertension, I70.1 - Atherosclerosis of renal artery Coding Level of Care Code Est Pt Level 4 (62576) Diagnoses Essential hypertension I10 Renal artery stenosis I70.1
--- OUTSIDE RECORDS SUMMARY | 2024-11-26 12:49 | XMS_ITS | Clinical Summary ---
Author Organization [facility] Address [address] [place] [address] Phone Care Team Providers Care C2 Tactical Analysis Technician Name Role Phone Hernandez Roa MD Primary Care Provider +1- [phone] Allergies No known active allergies Medications calcium [...] 08/31/2024 Influenza Vaccine (Season Ended) 2025 Insurance [facility] Healthnet [facility] [place] [address] Care Teams C2 Tactical Analysis Technician Relationship Specialty Start Date End Date Hernandez Roa MD [facility] [place] [address] PCP - General Internal Medicine 05/04/22
== END 2024-11-26 12:51 | disposition home or self-care (01) ==
LOC: HO.HKA 12:08
PROVIDERS: PCP Internal Medicine; Visit Provider Internal Medicine Nephrology
DX: I10 Essential (primary) hypertension (principal); I70.1 Atherosclerosis of renal artery
CPT/HCPCS: 99214

== ENCOUNTER → 2024-11-26 12:07 | Outpatient (BNVA) | payer OTHER, SELFPAY | PROVIDERS: PCP Internal Medicine; Visit Provider Internal Medicine Nephrology | DX: I70.1 Atherosclerosis of renal artery (principal); I10 Essential (primary) hypertension | CPT/HCPCS: 99212 ==

== ENCOUNTER 2024-11-26 13:06 | Outpatient (REF) | payer OTHER, SELFPAY | END 2024-11-26 13:07 | disposition home or self-care (01) | LOC: HO.HAP 13:06 | PROVIDERS: Visit Provider Internal Medicine | DX: Z46.1 Encounter for fitting and adjustment of hearing aid (principal); H90.3 Sensorineural hearing loss, bilateral | CPT/HCPCS: V5266 ==

== ENCOUNTER 2025-02-10 08:55 | Outpatient (REF) | payer OTHER, SELFPAY ==
--- OUTSIDE RECORDS SUMMARY | 2025-02-10 09:21 | XMS_ITS | Clinical Summary ---
Author Organization [facility] Address [address] [place] [address] Phone Care Team Providers Care Lamination Inspector Name Role Phone Hernandez Roa MD Primary Care Provider +1- [phone] Allergies No known active allergies Medications calcium [...] Colorectal Cancer Screening: Sigmoidoscopy 08/31/2024 Influenza Vaccine (#1) 2025 Insurance [facility] Healthnet [facility] [place] [address] Care Teams Lamination Inspector Relationship Specialty Start Date End Date Hernandez Roa MD [facility] [place] [address] PCP - General Internal Medicine 05/04/22
--- NOTE | 2025-02-10 10:00 | MHC.AU.MED ---
Medical Clearance for Hearing Instrumentation Date: 02/10/25 Patient Name: Odette Reilly Date of : 1975 Primary Care Provider: Iliana Roa MD We have seen your patient on 02/10/25 and have determined that they are a candidate for amplification (See accompanying report). Specifically, they would benefit from: Hearing aid use in both ears There is a statute that addresses Medical Evaluation Requirements prior to fitting a patient with a hearing aid. According to [place] statute 265 CMR:6.03(1), (a) General. Except as provided in 265 CMR 6.03(1)(b), a button sewing machine operator shall not sell a hearing aid unless the prospective user has presented to the button sewing machine operator a written statement signed by a licensed physician that states that the patient's hearing loss has been medically evaluated and the patient may be considered a candidate for a hearing aid. The medical evaluation must have taken place within the preceding six months. Please note: Due to the [place] Statute referenced above, we cannot accept a signature other than that of a licensed physician. QUALITY AUDIT REPRESENTATIVE and PA signatures cannot be accepted. I am in agreement with the above recommendation. There is no medical contraindication for hearing instrumentation. Physician Signature Date Physician Name (Printed)
--- NOTE | 2025-02-10 11:00 | MHC.AU.HA1 ---
Hearing Aid Evaluation Date of Visit: 02/10/25 Historical Information: Description of Hearing: Right Ear: Moderate rising to mild steeply sloping to severe sensorineural hearing loss; Left Ear: Within normal at .25 kHz steeply sloping to moderately-severe rising to mild sensorineural hearing loss Current personal amplification information: Phongonzález Gonzalez B50-M hearing aid Summary: Accompanied by mother, Annetta. Ready to pursue new HAs due to age of current pair. However, has never worn HAs consistently. Never acclimated to sound quality, minimal perceived benefit, still difficulty understanding speech. Discussed realistic expectations from HAs given poor speech discrimination and importance of consistent use in acclimating to HAs. EMs still in good shape, as they have rarely been worn and still fit appropriately - will use current EMs on new HAs to start. Discussed new options. Odette prefers battery-powered over rechargeable, same standard BTE style; agreeable to changing manufacturers for newer technology. Hearing Aid Prescription: Based on the individual?s shared listening needs, communication environments, dexterity, desire for connectivity, and personal preferences, the following prescription for amplification has been made: Right ear: Make, Model, Color: Oticon Real 2 miniBTE-T Color: Chroma Beige Battery Size: 312 Type of Earmold/Dome/CShell/SlimTip: MicroSonic Doqev-q-jfze canal lock with S.A.V Left ear: Left ear prescription to be same as Right Hearing Aid above: Make, Model, Color: Oticon Real 2 miniBTE-T Color: Chroma Beige Battery Size: 312 Type of Earmold/Dome/CShell/SlimTip: MicroSonic Iivxb-n-dwfk canal lock with S.A.V Plan of Care: Patient wishes to purchase hearing aids as prescribed Action Taken/Action Needed: Medical Clearance to be requested from PCP/ENT. Hearing Instrument Fitting to be scheduled when materials arrive Primary Diagnosis: H90.3 Bilateral Sensorineural Hearing Loss Signature: Provider: Messi Marinelli, [facility]
== END 2025-02-10 08:56 | disposition home or self-care (01) ==
LOC: HO.SH 08:55
PROVIDERS: Visit Provider Internal Medicine
DX: Z01.118 Encounter for examination of ears and hearing with other abnormal findings (principal); Z46.1 Encounter for fitting and adjustment of hearing aid; H90.3 Sensorineural hearing loss, bilateral
CPT/HCPCS: 92552; 92556; 92591; V5266

== ENCOUNTER 2025-03-09 13:55 | Outpatient (AMB) | payer OTHER, SELFPAY ==
[2025-03-09 13:57] VITALS: BP 128/80; PULSE 92; O2SAT 98; BMI 28.8
--- NOTE | 2025-03-09 13:57 | MHC.OFFVIS ---
Vital Signs 03/09/25 13:57 Height 4 ft 10 in Weight 138 lb BMI 28.8 BP 128/80 Blood Pressure Location Rt brachial Position Sitting Pulse 92 Pulse Source Pulse Oximeter Pulse Oximetry (%) 98 Oxygen Delivery Method Room Air Intake Visit Reasons: Follow up Intake Note: Follow up Benign neoplasm of meninges, unspecified, Meningioma, speech disturbances, memory and hearing impairment Blind Aide Required: No Accompanied by: Mother Allergies No Known Allergies Allergy (Verified 03/09/25 14:10) HPI Comments Details: 49-yr-old female presents for f/u visit. Accompanied by her mother. she is using her CPAP - misses 1 day a week when she stays with her mother.Her compliance data shows that she is non compliant Patient feels her memory is stable. No change in her word finding difficulty. She is independent in most ADLS. Her sister provides lunch and supper.she goes to the gym with her mother 5days a week. she does her dishes laundry cleaning etc No falls . [facility] Medical History (Updated 03/09/25 @ 14:39 by Jessica Ferrer MD) Obstructive sleep apnea Evaluation of hearing impairment History of non anemic vitamin B12 deficiency Vitamin B12 deficiency Meningioma Renal artery stenosis Hypersomnolence Snoring GERD (gastroesophageal reflux disease) Word finding problem Memory difficulties Heart murmur, systolic Essential hypertension Positive colorectal cancer screening using Cologuard test Panic attacks Basal cell carcinoma of right cheek Hyperlipidemia Irregular menses Acquired hypothyroidism Medulloblastoma Surgical History Hx of colonoscopy History of brain tumor Status post breast reduction Family History Father HTN (hypertension) Hyperlipidemia Mother HTN (hypertension) History of thyroid disorder Maternal Grandmother CHF (congestive heart failure) History of thyroid disorder Paternal Grandmother Breast cancer Melanoma Paternal Grandfather Cancer Diabetes mellitus Brother No problems noted. Sister No problems noted. Social History Housing: House Alcohol intake: never Patient Tobacco Use Status: Never used Tobacco e-Cigarette/Vaping Use: Never Used service: No Current occupational status: disabled Cognitive needs: No Hearing needs: No Vision needs: Yes (legally blind) Physical Exam Vital Signs: Last Vital Signs Pulse 92 03/09/25 13:57 BP 128/80 03/09/25 13:57 Pulse Ox 98 03/09/25 13:57 Oxygen Delivery Method Room Air 03/09/25 13:57 BMI result Body Mass Index 28.8 Const General: cooperative and no acute distress Orientation/consciousness: patient oriented x3 HEENT Head: Yes normocephalic Resp Effort & Inspection: normal respiratory effort and able to speak in complete sentences Neuro General: patient oriented x3 Cognition (Neuro): normal cognition Motor exam (neuro): 5/5 motor strength present throughout Psych Appearance: grossly normal Mental Status: mental status grossly normal Speech and movement: Normal speech and movement present Affect: normal affect Attitude: cooperative Thought process: Normal thought process present Assessment & Plan Assessment & Plan (1) Word finding problem: Comment: ? hearing impairment Code(s): R47.89 - Other speech disturbances Category: Medical (2) Memory difficulties: Comment: she did well on MMSE 23/23 - she had difficulty during the evaluation due to her hearing difficulty Code(s): R41.3 - Other amnesia Category: Medical (3) Meningioma: Code(s): D32.9 - Benign neoplasm of meninges, unspecified Category: Medical (4) Obstructive sleep apnea: Code(s): G47.33 - Obstructive sleep apnea (adult) (pediatric) Category: Medical Plan Continue speech exercises and cognitive exercises Repeat MRI brain Scribe Plan - Not visible on output: Reviewed possible medication side effects, including but not limited to drowsiness, dizziness. Coding Level of Care Code Est Pt Level 4 (33010) Diagnoses Word finding problem R47.89 Memory difficulties R41.3 Meningioma D32.9 Obstructive sleep apnea G47.33
--- OUTSIDE RECORDS SUMMARY | 2025-03-09 16:18 | XMS_ITS | Clinical Summary ---
Author Organization [facility] Address [address] [place] [address] Phone Care Team Providers Care Superintendent Tests Name Role Phone Hernandez Roa MD Primary Care Provider +1- [phone] Allergies No known active allergies Medications calcium [...] Sigmoidoscopy 08/31/2024 Influenza Vaccine (#1) 2025 Insurance [facility] Healthnet [facility] [employer]net Care Teams Superintendent Tests Relationship Specialty Start Date End Date Hernandez Roa MD [place] [address] PCP - General Internal Medicine 05/04/22
== END 2025-03-09 14:31 | disposition home or self-care (01) ==
LOC: HO.HSMS 13:56
PROVIDERS: PCP Internal Medicine; Visit Provider Psychiatry & Neurology Neurology
DX: R47.89 Other speech disturbances (principal); R41.3 Other amnesia; D32.9 Benign neoplasm of meninges, unspecified; G47.33 Obstructive sleep apnea (adult) (pediatric)
CPT/HCPCS: 99214

== ENCOUNTER → 2025-03-09 13:55 | Outpatient (BNVA) | payer OTHER, SELFPAY | PROVIDERS: PCP Internal Medicine; Visit Provider Psychiatry & Neurology Neurology | DX: G47.33 Obstructive sleep apnea (adult) (pediatric) (principal); Z99.89 Dependence on other enabling machines and devices; R47.89 Other speech disturbances; R41.3 Other amnesia; D32.9 Benign neoplasm of meninges, unspecified | CPT/HCPCS: 99212 ==

== ENCOUNTER 2025-03-31 10:52 | Outpatient (REF) | payer OTHER, SELFPAY ==
--- OUTSIDE RECORDS SUMMARY | 2025-03-31 12:15 | XMS_ITS | Clinical Summary ---
Author Organization [facility] Address [address] [place] [address] Phone Care Team Providers Care Cashier Courtesy Booth Name Role Phone Hernandez Roa MD Primary Care Provider +1- [phone] Allergies No known active allergies Medications calcium [...] Sigmoidoscopy 08/31/2024 Influenza Vaccine (#1) 2025 Insurance [facility] Healthnet [facility] [employer] Care Teams Cashier Courtesy Booth Relationship Specialty Start Date End Date Hernandez Roa MD [facility] [place] [address] PCP - General Internal Medicine 05/04/22
== END 2025-03-31 10:53 | disposition home or self-care (01) ==
LOC: HO.HAP 10:52
PROVIDERS: Visit Provider Internal Medicine
DX: Z46.1 Encounter for fitting and adjustment of hearing aid (principal); H90.3 Sensorineural hearing loss, bilateral
CPT/HCPCS: V5266

== ENCOUNTER 2025-04-22 09:20 | Outpatient (REF) | payer OTHER, SELFPAY | END 2025-04-22 09:21 | disposition home or self-care (01) | LOC: HO.MAMMO 09:20 | PROVIDERS: PCP Internal Medicine; Visit Provider Internal Medicine | DX: Z12.31 Encounter for screening mammogram for malignant neoplasm of breast (principal) | CPT/HCPCS: 77063; 77067 ==

== ENCOUNTER → 2025-04-22 09:30 | Outpatient (BNV) | payer OTHER, SELFPAY | PROVIDERS: PCP Internal Medicine; Visit Provider Radiology Body Imaging | DX: Z12.31 Encounter for screening mammogram for malignant neoplasm of breast (principal) | CPT/HCPCS: 77063; 77067 ==

== ENCOUNTER 2025-05-05 12:45 | Outpatient (REF) | payer OTHER, SELFPAY ==
--- NOTE | 2025-05-05 13:38 | MHC.AU.HA2 ---
Hearing Instrument Fitting- Adult- Binaural Date of Visit: 05/05/25 Hearing Instruments Dispensed: Right Ear: Make, Model, Color, Serial Number: Oticon Real 2 miniBTE-T SN: [id number] Color: Chroma Beige Hepatologist Repair Warranty: 04/04/2028 Hepatologist Loss and Damage Warranty: 04/04/2028 [facility] Service Plan: 05/05/2026 Battery Size: 312 Earmold/Dome/CShell/SlimTip: MicroSonic Nkakh-p-cequ canal lock with S.A.V Left Ear: Make, Model, Color, Serial Number: Oticon Real 2 miniBTE-T SN: [id number] Color: Chroma Beige Hepatologist Repair Warranty: 04/04/2028 Hepatologist Loss and Damage Warranty: 04/04/2028 [facility] Service Plan: 05/05/2026 Battery Size: 312 Earmold/Dome/CShell/SlimTip: MicroSonic Vjvyu-j-lofl canal lock with S.A.V Summary of Fitting: Accompanied by motherAnnetta. Ran feedback analyzer and real ear measures. Comfortable at real ear settings. Reviewed care and use including VC use. As a long-time GONZALEZ user, familiar with general maintenance and cleaning. Never wore old HAs consistently. Discussed importance of consistent use in acclimating to HAs. Has old HAs to keep as back up. Scheduled follow up; however, may cancel if all is well. Recommendations: A hearing instrument follow-up was scheduled. Diagnosis Code(s): Primary Diagnosis: H90.3 Bilateral Sensorineural Hearing Loss Signature: Provider: Messi Marinelli, [facility]
== END 2025-05-05 12:46 | disposition home or self-care (01) ==
LOC: HO.HAP 12:45
PROVIDERS: Visit Provider Internal Medicine
DX: Z46.1 Encounter for fitting and adjustment of hearing aid (principal); H90.3 Sensorineural hearing loss, bilateral
CPT/HCPCS: V5011; V5020; V5160; V5261; V5266

== ENCOUNTER 2025-06-01 09:05 | Outpatient (REF) | payer OTHER, SELFPAY ==
--- OUTSIDE RECORDS SUMMARY | 2025-06-01 10:34 | XMS_ITS | Clinical Summary ---
Author Organization [facility] Address [address] [place] [address] Phone Care Team Providers Care Chief Vendor Quality Name Role Phone Hernandez Roa MD Primary Care Provider +1- [phone] Allergies No known active allergies Medications calcium [...] Sigmoidoscopy 08/31/2024 Influenza Vaccine (#1) 2025 Insurance [facility] Healthnet [facility] Healthnet Care Teams Chief Vendor Quality Relationship Specialty Start Date End Date Hernandez Roa MD PCP - General Internal Medicine 05/04/22
[2025-06-01 12:03] LABS: Anion Gap 13 (12-20); Blood Urea Nitrogen 21 mg/dL (9-16); Carbon Dioxide 27 mmol/L (22-29); Chloride 105 mmol/L (96-108); Estimated Glomerular Filt Rate 46; Potassium 4.1 mmol/L (3.3-5.1); Sodium 141 mmol/L (135-145)
== END 2025-06-01 09:06 | disposition home or self-care (01) ==
LOC: HO.HMGCLDS 09:05
PROVIDERS: PCP Internal Medicine; Visit Provider Internal Medicine Nephrology
DX: I10 Essential (primary) hypertension (principal); I70.1 Atherosclerosis of renal artery
CPT/HCPCS: 36415; 80051; 82565; 84520

== ENCOUNTER 2025-06-10 09:49 | Outpatient (AMB) | payer OTHER, SELFPAY ==
--- NOTE | 2025-06-10 09:59 | HO.NEPHOV ---
Vital Signs 06/10/25 10:01 Height 4 ft 10 in Weight 137 lb 6 oz BMI 28.7 BP 118/72 Blood Pressure Location Lt brachial Position Sitting Pulse 94 Pulse Source Pulse Oximeter Pulse Oximetry (%) 97 Oxygen Delivery Method Room Air Intake Visit Reasons: 6 mo fu w/ labs-Conf w/Annetta mom Mix House Tender Required: No Accompanied by: Mother Allergies No Known Allergies Allergy (Verified 06/10/25 10:00) HPI Comments Details: Odette was seen in follow-up of her hypertension and unilateral renal artery stenosis. She had been on multiple antihypertensive medications in the past. Her amlodipine was discontinued and her lisinopril was increased to 10 mg with good blood pressure control. She has not had any Doppler of her renal arteries recently for follow-up. She denies headache, chest pain, nausea, vomiting, shortness of breath, proximal nocturnal dyspnea, orthopnea, pedal edema or urinary symptoms. She does not take excess sodium in the diet. She is compliant with her medications. She avoids nonsteroidal anti-inflammatories. She is on statins. She was accompanied by her mother during this visit. She is blind. She denied any active complaints at the time of this office visit [facility] Medical History (Updated 03/09/25 @ 14:39 by Jessica Ferrer MD) Obstructive sleep apnea Evaluation of hearing impairment History of non anemic vitamin B12 deficiency Vitamin B12 deficiency Meningioma Renal artery stenosis Hypersomnolence Snoring GERD (gastroesophageal reflux disease) Word finding problem Memory difficulties Heart murmur, systolic Essential hypertension Positive colorectal cancer screening using Cologuard test Panic attacks Basal cell carcinoma of right cheek Hyperlipidemia Irregular menses Acquired hypothyroidism Medulloblastoma Surgical History Hx of colonoscopy History of brain tumor Status post breast reduction Family History Father HTN (hypertension) Hyperlipidemia Mother HTN (hypertension) History of thyroid disorder Maternal Grandmother CHF (congestive heart failure) History of thyroid disorder Paternal Grandmother Breast cancer Melanoma Paternal Grandfather Cancer Diabetes mellitus Brother No problems noted. Sister No problems noted. Social History Housing: House Alcohol intake: never Patient Tobacco Use Status: Never used Tobacco e-Cigarette/Vaping Use: Never Used service: No Current occupational status: disabled Cognitive needs: No Hearing needs: No Vision needs: Yes (legally blind) Review of Systems Const All systems reviewed & are unremarkable except as noted in HPI and below Physical Exam Vital Signs: Last Vital Signs Pulse 94 06/10/25 10:01 BP 118/72 06/10/25 10:01 Pulse Ox 97 06/10/25 10:01 Oxygen Delivery Method Room Air 06/10/25 10:01 BMI result Body Mass Index 28.7 Const General: comfortable and no acute distress Orientation/consciousness: patient oriented x3 HEENT Head: Yes normocephalic Mouth: Normal oral and palatal mucosa present Eyes EOM: EOMs intact bilaterally Neck Neck: Yes supple Resp Auscultation: clear to auscultation bilaterally Cardio Jugular venous distension: no JVD Rate: regular rate GI Palpation (GI): Soft to palpation Auscultation: normal bowel sounds General: Yes no CVA tenderness Back/Spine/Pelvis Back: no CVA tenderness Skin General skin exam: no rashes or lesions noted Neuro General: patient oriented x3 and moves all extremities Extrem General: Yes no pedal edema Results Reviewed Nephrology Results: Sodium, (135-145) 141 mmol/L 06/01/25 Potassium, (3.3-5.1) 4.1 mmol/L 06/01/25 Chloride, (96-108) 105 mmol/L 06/01/25 Carbon Dioxide, (22-29) 27 mmol/L 06/01/25 BUN, (9-16) 21 mg/dL H 06/01/25 Creatinine, (0.5-1.4) 1.23 mg/dL 06/01/25 Renal US 09/06/22 Assessment & Plan Assessment & Plan (1) Renal artery stenosis: Code(s): I70.1 - Atherosclerosis of renal artery Category: Medical (2) Essential hypertension: Code(s): I10 - Essential (primary) hypertension Category: Medical Plan Odette was found to be hypertensive and had been on multiple antihypertensive medications in the past. Investigations found her to have unilateral renal artery stenosis. Her blood pressure has been at goal. She has no signs of LVH or proteinuria. Her renal functions have been stable( serum creatinine marginally up) along with the serum potassium. She avoids nonsteroidal anti-inflammatories and takes only minimal salt. She maintains good hydration. I plan to order follow-up Doppler of her renal arteries after next visit . She is on statins. I did not make any medication changes today but shall back off on ACEI if her serum creatinine rises. All her and her mother's questions were answered. Follow-up given Orders: Orders Creatinine 6 Months I10 - Essential (primary) hypertension, I70.1 - Atherosclerosis of renal artery Electrolytes 6 Months I10 - Essential (primary) hypertension, I70.1 - Atherosclerosis of renal artery Blood Urea Nitrogen 6 Months I10 - Essential (primary) hypertension, I70.1 - Atherosclerosis of renal artery Protein Creatinine Ratio, Ur 6 Months I10 - Essential (primary) hypertension, I70.1 - Atherosclerosis of renal artery Medications: Refilled lisinopril 10 mg PO DAILY 90 tabs 3RF I10 - Essential (primary) hypertension Coding Level of Care Code Est Pt Level 4 (26164) Diagnoses Renal artery stenosis I70.1 Essential hypertension I10
[2025-06-10 10:01] VITALS: BP 118/72; PULSE 94; O2SAT 97; BMI 28.7
== END 2025-06-10 10:19 | disposition home or self-care (01) ==
LOC: HO.HKA 09:50
PROVIDERS: PCP Internal Medicine; Visit Provider Internal Medicine Nephrology
DX: I70.1 Atherosclerosis of renal artery (principal); I10 Essential (primary) hypertension
CPT/HCPCS: 99214

== ENCOUNTER → 2025-06-10 09:49 | Outpatient (BNVA) | payer OTHER, SELFPAY | PROVIDERS: PCP Internal Medicine; Visit Provider Internal Medicine Nephrology | DX: I10 Essential (primary) hypertension (principal); I70.1 Atherosclerosis of renal artery; Z79.899 Other long term (current) drug therapy | CPT/HCPCS: 99212 ==